=== PATIENT | female | born 1940 | race Caucasian/White ===

== ENCOUNTER 2018-04-13 01:11 | Outpatient (RCR) | payer MEDICARE, OTHER, SELFPAY ==
[2018-04-13] MEDS: Normal Saline Flush 10 ML SYR IVP (09:47)
[2018-04-13] MEDS: diphenhydrAMINE 25 MG CAP PO (10:15)
[2018-04-13] MEDS: Acetaminophen 325 MG TAB 650 MG PO (10:15)
[2018-04-13 10:30] VITALS: BP 139/53; PULSE 52; RESP 18; TEMP 36.2
[2018-04-13 10:45] VITALS: BP 141/56; PULSE 53; RESP 18; TEMP 36
[2018-04-13 11:00] VITALS: BP 136/55; PULSE 52; RESP 18; TEMP 36.5
[2018-04-13 12:58] VITALS: BP 164/63; PULSE 60; RESP 18; TEMP 36.4
== END 2018-05-02 23:59 | disposition home or self-care (01) ==
LOC: INF 01:11
PROVIDERS: PCP Family Medicine; Visit Provider Family Medicine
DX: K50.90 Crohn's disease, unspecified, without complications (principal)
CPT/HCPCS: 96365; 96366; J1745

== ENCOUNTER 2018-05-08 14:12 | Emergency (ER) | payer MEDICARE, OTHER, SELFPAY ==
[2018-05-08 14:19] VITALS: BP 163/63; PULSE 57; RESP 20; TEMP 36.5; O2SAT 99
--- NOTE | 2018-05-08 15:19 | DI.CT_ITS ---
SYMPTOM/DIAGNOSIS: DIZZINESS NONCONTRAST HEAD CT: No priors. The ventricles and sulci are consistent with the patient's age. Areas of decreased attenuation are present in the white matter consistent with small vessel ischemic disease. No acute infarct, hemorrhage, midline shift or mass effect is identified. The ventricles are intact. The basilar cisterns are patent. The visualized paranasal sinuses are clear. The mastoid air cells are well pneumatized. The calvarium is intact. IMPRESSION: No acute intracranial process.
--- NOTE | 2018-05-08 15:35 | W.ED.GENAD ---
Discharge Plan Disposition Patient Disposition: HOME Condition: Fair Discharge Details Chief Complaint: Orthopedic Clinical Impression: Dizziness Primary Care Provider: Dexter Khan ED Provider: Stephanie Cleary Home Meds and New Rx's Prescriptions: Continue ALOE VERA JUICE 1 bottle PO DAILY RF: 0 multivitamin [Daily Vitamin] 1 EACH tablet 1 ea PO DAILY RF: 0 infliximab [Remicade] 100 MG recon soln 400 mg IV Q 10 WEEKS Qty: 1 RF: 7 [id number] [Glucosamine Complex-MSM] 1 EACH capsule 2 ea PO DAILY Qty: 2 RF: 0 calcium carb and citrate-vitD3 1 EACH tablet extended release 1 ea PO BID RF: 0 cyanocobalamin (vitamin B-12) [Vitamin B-12] 1,000 MCG tablet 1,000 mcg PO DAILY RF: 0 celecoxib [Celebrex] 100 mg capsule 100 mg PO BID 30 Days Qty: 60 RF: 3 atorvastatin 40 mg tablet 40 mg PO DAILY Qty: 90 RF: 3 hydrochlorothiazide 12.5 mg tablet 12.5 mg PO DAILY Qty: 90 RF: 3 Discharge Instructions Instructions: Dizziness (ED) Additional Instructions: Laboratory evaluation and imaging are without acute abnormality to suggest why you have had this morning dizziness for the past 3 weeks. Labs are reassuring at this time. Please follow-up with primary care this week. Please encourage hydration. If you develop headache, visual change, increased dizziness or other new/worsening symptoms please seek care urgently once again Referrals: Dexter Khan DO [Primary Care Provider] - ([phone]) Discharge Data Discharge Date/Time-TO BE ENTERED AT DEPARTURE: 05/08/18 18:35 Medical Decision Making Patient is a 6-year-old female presenting today with chief complaint of dizziness. Patient initially reported to nursing staff that she was here for her right middle finger. On exam, the right middle finger is significant for circumferential area of ecchymosis over the middle phalanges. Reports that she sustained injury approximately 1 week ago when peeling beats. However she is denying any discomfort in this area. She came in today for evaluation of this as she noted the digit to be white and had a tingly sensation. This blanching and altered sensation has since resolved, reports that they were only bothersome before a few moments. She reports that resolved quite quickly after massaging the digit. No pain on palpation. No joint swelling. Full range of motion. No ligamentous injury noted on exam. However, after evaluating the patient's finger she is now reporting that she has been having dizziness in the morning for the past 3 weeks. Denies any headache. Denies any acute visual change. No nausea or vomiting. Describes her dizziness as lightheadedness. Denies any vertigo. denies any change in her medications recently. States that typically this dizziness lasts for a few hours and then subsides. Reports that the lightheadedness occurs when she is still lying in bed and is not exacerbated with movement. States his lightheadedness can last with your breakfast and then spontaneously resolved. She is currently asymptomatic. Neuro exam is intact. No headache. No visual changes. Will obtain EKG, head CT and laboratory evaluation. Discussed plan with the patient. Also obtain orthostatics EKG was reviewed by Dr. Ledesma. Patient is in normal sinus rhythm with a rate of 60 normal sinus rhythm. She advises no ischemic changes. Laboratory evaluation without significant abnormality. CT reviewed by radiologist. They advised that patient's brain is significant for nonspecific hypodensities of the periventricular and deep subcortical white matter, most likely secondary to chronic small vessel ischemic change. No intracranial hemorrhage or extra-axial fluid collection. No evidence of mass-effect or midline shift. Mccray-white matter differentiation is normal. Ventricles are significant for prominence of the ventricles and foci, most likely attributed to parenchymal volume loss. Advised the bones are unremarkable no acute fracture. Soft tissue unremarkable. Sinuses are unremarkable as visualized no acute sinusitis. Mastoid air cells are unremarkable as visualized, no mass or diffuse Orthostatic vital signs obtained by nursing staff, no acute abnormality noted Discussed findings with the patient. Advised that at this point am unclear as to why she is having this lightheadedness in the morning. CT without significant abnormality. Laboratory evaluation was reassuring. EKG without acute abnormality. Symptoms are difficult to pinpoint as she is not currently having any symptoms in the occur only in the morning. Not worse with movement. Continues to deny any neurologic symptoms. Advise close follow-up with primary care. I have given her the phone numbers she was unclear as to how to contact them. Encourage hydration. Advised that she keep a journal of her symptoms to try to better understand the source of her lightheadedness. She was given strict return precautions. Regard to the finger, patient I discussed that the pallor and tingling she is experiencing was likely positional as it quickly resolved with movement of the hand and massage. The time I evaluated her, no neurovascular deficit was noted. She denied experiencing any discomfort in the digit. Ligaments intact with full range of motion. At this point, seems to still have residual ecchymosis in the digit associated with cleaning vegetables recently. All of her questions and concerns were addressed and she is in agreement this plan HPI General Mode of arrival: EMS. Date/Time Provider Initiated Documentation: 05/08/18 15:03. Information obtained by: patient and family. History of Present Illness 78 year old F presents to the emergency department with the chief complaint of dizziness, described as mild, Quality is described as other (denies other pain), Patient started experiencing this week(s) (3) and it has been intermittent (reports she has dizzy spells in the morning). No relieving factors improve symptom(s), No exacerbating factors reported . Patient notes no other symptoms.; denies chest pain, cough, fever/chills, headaches, loss of appetite, malaise, nausea/vomiting, rash, shortness of breath, syncope and weakness. Patient did receive the following treatments prior to arrival, none Related Data Home Medications Medication Instructions Recorded Confirmed Aloe Vera Juice 1 bottle PO DAILY 11/30/12 05/08/18 calcium carb and citrate-vitD3 1 ea PO BID 11/30/12 05/08/18 hyvscwkqghe-cje-[id number]-vitC 2 ea PO DAILY #2 11/30/12 05/08/18 [Glucosamine Complex-MSM] infliximab [Remicade] 400 mg IV Q 10 WEEKS #1 vial 11/30/12 05/08/18 multivitamin [Daily Vitamin] 1 ea PO DAILY 11/30/12 05/08/18 cyanocobalamin (vitamin B-12) 1,000 mcg PO DAILY 03/29/13 05/08/18 [Vitamin B-12] atorvastatin 40 mg tablet 40 mg PO DAILY #90 tab-cap 04/22/18 05/08/18 celecoxib 100 mg capsule 100 mg PO BID 30 Days #60 cap 04/22/18 05/08/18 hydrochlorothiazide 12.5 mg tablet 12.5 mg PO DAILY #90 tab-cap 04/22/18 05/08/18 Previous Rx's Medication Instructions Recorded atorvastatin 40 mg tablet 40 mg PO DAILY #90 tab-cap 04/22/18 celecoxib 100 mg capsule 100 mg PO BID 30 Days #60 cap 04/22/18 hydrochlorothiazide 12.5 mg tablet 12.5 mg PO DAILY #90 tab-cap 04/22/18 Allergies Allergy/AdvReac Type Severity Reaction Status Date / Time codeine Allergy rash Unverified 05/08/18 14:22 Sulfa (Sulfonamide Allergy unknown Unverified 05/08/18 14:22 Antibiotics) mesalamine [From Apriso] AdvReac Intermediate Diarrhea Unverified 05/08/18 14:22 General Stated Complaint: Orthopedic ALEX: 4 Review of Systems Constitutional Reports as per HPI, Denies chills, Denies fatigue, Denies fever(s), Denies headache(s), Denies night sweats, Denies poor appetite and Denies weakness Eyes Denies blurry vision, Denies change in vision and Denies diplopia ENT Denies vertigo, Reports dizziness (lightheadedness), Denies ear discharge, Denies otalgia, Denies headache(s) and Denies neck pain Cardiovascular Reports as per HPI, Denies chest pain, Denies chest pain at rest, Denies chest pain with activity, Denies syncope, Denies rapid heart rate, Denies pedal edema, Denies leg edema, Reports lightheadedness, Denies palpitations, Denies dyspnea and Denies dyspnea on exertion Respiratory Denies cough, Denies dyspnea and Denies dyspnea on exertion Gastrointestinal Denies abdominal pain, Denies change in stool character, Denies diarrhea, Denies nausea and Denies vomiting Genitourinary Denies system reviewed and no additional complaints, except as docu (denies any change in urinary habits) Musculoskeletal Denies neck pain and Reports tingling (experienced temporary tingling in the distal aspect of the middle digit right hand, resolved quickly with rubbing the digits and ROM) Integumentary/Breasts Reports other (ecchymosis to the right middle digit x 1 week) Neurologic Denies vertigo, Reports dizziness (lightheadedness), Denies syncope, Denies headache(s), Reports tingling (experienced temporary tingling in the distal aspect of the middle digit right hand, resolved quickly with rubbing the digits and ROM) and Denies weakness Psychiatric Denies abnormal sleep pattern and Denies change in appetite Endocrine Denies fatigue and Denies palpitations PFSH Family History Mother No problems noted. Father No problems noted. Sister No problems noted. Sister No problems noted. Sister No problems noted. Sister No problems noted. Social History Smoking/Tobacco Use Status: Never Surgical History Appendectomy Extraction of cataract (09/04/16) Extraction of cataract (09/16/16) Exam Const General: cooperative, healthy appearing, comfortable, no acute distress, well developed and well groomed Nutritional Appearance: average body habitus and well nourished Orientation: alert, awake and oriented x3 HENMT Head: normal to inspection, normocephalic and atraumatic Ears: hearing grossly normal bilaterally, external ears normal and TM's normal bilaterally General nose exam: external nose normal Face and sinus: normal facial exam Mouth: oral mucosae normal, lip normal, tongue normal and moist mucous membranes abnormal Throat: posterior oropharynx normal, tonsils normal and uvula midline Eyes General: appearance normal, both eyes and all related structures Alignment and Position: alignment normal Periorbital: periorbital findings normal Eyelids: eyelids normal Conjunctivae: conjunctivae normal Pupils: PERRL EOM: EOM intact bilaterally Neck Neck: normal visual inspection, full ROM, no lymphadenopathy and no meningeal signs Resp Effort & Inspection: normal respiratory effort, able to speak in complete sentences and no respiratory distress Auscultation: clear to auscultation bilaterally Cardio Rate: regular rate Rhythm: regular rhythm Heart Sounds: S1 normal and S2 normal GI Inspection: normal to inspection Palpation: soft, no hepatosplenomegaly, no aortic enlargement, not firm, no guarding, no masses, not rigid and nontender Auscultation: normal bowel sounds Skin General skin exam: ecchymosis (Patient has circumferential ecchymosis of the middle phalanx of the middle digit right hand. No pain to palpation. No joint swelling. No soft tissue swelling. Full range of motion. Ligamentously intact.) Lesions: no lesions Rashes: no rashes Wounds: no wounds Nails: normal Neuro General: alert, awake and oriented x3 Cranial Nerves: CN's II-XI intact bilaterally Cognition: normal cognition Speech: speech normal Gait: normal gait Motor: muscle tone normal throughout, strength 5/5 throughout, no pronator drift, no movement abnormalities noted and no fasciculations Sensory Exam: no sensory deficits noted DTR's: Rt Biceps: 2+, Lt Biceps: 2+, Rt Brachioradialis: 2+, Lt Brachioradialis: 2+, Rt Patellar: 2+, Lt Patellar: 2+, Rt Ankle: 2+ and Lt Ankle: 2+ Coordination: [id number] test normal and [id number] test normal Extrem General: abnormal to inspection, full ROM, normal capillary refill, no joint enlargement, no clubbing, cyanosis or edema, no pedal edema, no calf tenderness and normal gait Psych Appearance: grossly normal and well kempt Mental Status: mental status grossly normal Speech and Movement: speech and movement normal Mood: congruent mood Course Vital Signs Temperature 36.5 C 05/08/18 14:19 Pulse 57 L 05/08/18 14:19 Respiratory Rate 20 05/08/18 14:19 Blood Pressure 163/63 H 05/08/18 14:19 Pulse Oximetry 99 05/08/18 14:19 Temperature 36.5 C 05/08/18 14:19 Temperature Source Temporal Artery Scan 05/08/18 14:19 Pulse 57 L 05/08/18 14:19 Respiratory Rate 20 05/08/18 14:19 Respiratory Effort 05/08/18 14:32 Blood Pressure 163/63 H 05/08/18 14:19 Blood Pressure Position Supine 05/08/18 14:19 Pulse Oximetry 99 05/08/18 14:19 Oxygen Delivery Method Room Air 05/08/18 14:19 Oxygen Flow Rate 0 05/08/18 14:19 Pain Level 0 05/08/18 14:19
[2018-05-08 15:43] LABS: Absolute Basophil Count 0.04 k/cumm (0.0-0.2); Absolute Monocyte Count 0.61 k/cumm (0.11-0.7); Absolute Neutrophil Count 2.85 k/cumm (1.2-6.7); Basophils % 0.8; Eosinophils % 3.8; HCT 38.9 % (36.0-46.0); HGB 13.1 g/dL (12.0-15.5); Lymphocytes % 30.2; Mean Corp. HGB Concentration 33.7 g/dL (32.0-36.0); Mean Corpuscular Hemoglobin 32.2 pg (27.0-33.0); Mean Corpuscular Volume 95.6 fL (80-95); Mean Platelet Volume 11.8 fL (8.0-11.0); Monocytes % 11.5; Neutrophils % 53.7; Platelet Count 155 x1000/uL (130-400); RBC 4.07 m/cumm (4.00-5.20); RBC Distribution Width 12.9 % (11.7-14.6)
[2018-05-08 16:01] LABS: ALT 39 U/L (12-78); AST 34 U/L (15-37); Alkaline Phosphatase 70 U/L (46-116); Anion Gap 6.3 mmol/L (3-11); BUN 22 mg/dL (7-18); Bilirubin, Total 0.5 mg/dL (0.2-1.0); CO2 31.7 mmol/L (21.0-32.0); CREATININE 1.11 mg/dL (0.55-1.02); Calcium 9.2 mg/dL (8.5-10.1); Chloride 101 mmol/L (98-107); Estimated GFR 47.29 (mL/min/1.73m2); Glucose 105 mg/dL (70-100); Potassium 3.7 mmol/L (3.5-5.1); Sodium 139 mmol/L (136-145); Total Protein 8.1 g/dL (6.4-8.2)
[2018-05-08 16:03] LABS: Troponin I < 0.02 ng/mL (0.00-0.06)
[2018-05-08 16:06] LABS: Bilirubin Negative (Negative); Blood Negative (Negative); Clarity Clear; Glucose Negative (Negative); Ketones Negative (Negative); Leukocyte Esterase Negative (Negative); Nitrite Negative (Negative); Specific Gravity 1.015 (1.005-1.025); Urobilinogen 0.2 EU/dL (Up TO 0.2)
[2018-05-08 16:09] LABS: Magnesium 2.4 mg/dL (1.8-2.4); TSH 3.27 uIU/mL (0.358-3.74)
[2018-05-08 16:13] VITALS: BP 138/94; BP 139/51; BP 147/51; PULSE 55; PULSE 56; PULSE 57
--- NOTE | 2018-05-08 17:22 | DI.VRAD_ITS ---
EXAM: CT Head Without Intravenous Contrast CLINICAL HISTORY: 78 years old, female; Signs and symptoms; Dizziness; Patient HX: Dizziness last few weeks TECHNIQUE: Axial computed tomography images of the head/brain without intravenous contrast. Coronal and sagittal reformatted images were created and reviewed. COMPARISON: No relevant prior studies available. FINDINGS: Brain: Nonspecific hypodensities of the periventricular and deep subcortical white matter, most likely secondary to chronic small vessel ischemic change. No intracranial hemorrhage or extra-axial fluid collection. No evidence of mass effect or midline shift. Mccray-white matter differentiation is normal. Ventricles: Prominence of the ventricles and sulci, most likely attributed to parenchymal volume loss. Bones/joints: Unremarkable. No acute fracture. Soft tissues: Unremarkable. Sinuses: Unremarkable as visualized. No acute sinusitis. Mastoid air cells: Unremarkable as visualized. No mastoid effusion. IMPRESSION: No acute intracranial pathology. Dictated and Authenticated by: Aly Kaba MD. Ordering:KALANI BOSTON MD
== END 2018-05-08 18:35 | disposition home or self-care (01) ==
PROVIDERS: Emergency Provider Physician Assistant; PCP Family Medicine
DX: R42 Dizziness and giddiness (principal)
CPT/HCPCS: 36415; 80053; 93005; 99285; 70450; 81003; 83735; 84443; 84484; 85025; 93010

== ENCOUNTER 2018-06-28 10:01 | Outpatient (CLI) | payer MEDICARE, OTHER, SELFPAY ==
[2018-06-28 10:22] LABS: Abs Immature Grans 0.01 k/cumm (0.0-0.09); Absolute Basophil Count 0.05 k/cumm (0.0-0.2); Absolute Eosinophil Count 0.24 k/cumm (0.0-0.7); Absolute Lymphocyte Count 1.94 k/cumm (1.2-3.4); Absolute Monocyte Count 0.51 k/cumm (0.11-0.7); Absolute Neutrophil Count 2.26 k/cumm (1.2-6.7); Eosinophils % 4.8; HGB 13.3 g/dL (12.0-15.5); Immature Grans % 0.2; Lymphocytes % 38.7; Mean Corp. HGB Concentration 33.3 g/dL (32.0-36.0); Mean Corpuscular Hemoglobin 32.2 pg (27.0-33.0); Mean Corpuscular Volume 96.9 fL (80-95); Mean Platelet Volume 10.9 fL (8.0-11.0); Monocytes % 10.2; Neutrophils % 45.1; Platelet Count 165 x1000/uL (130-400); RBC 4.13 m/cumm (4.00-5.20); RBC Distribution Width 13.1 % (11.7-14.6); White Blood Cell Count 5.01 k/cumm (4.4-10.8)
[2018-06-28 11:29] LABS: ALT 34 U/L (12-78); AST 28 U/L (15-37); Albumin 3.8 g/dL (3.4-5.0); Alkaline Phosphatase 64 U/L (46-116); Bilirubin, Direct 0.17 mg/dL (0.00-0.20); Bilirubin, Total 0.7 mg/dL (0.2-1.0); Total Protein 7.5 g/dL (6.4-8.2)
[2018-06-28 11:31] LABS: C-Reactive Protein < 0.05 mg/dL (0.0-0.3)
== END 2018-06-28 10:21 ==
PROVIDERS: PCP Family Medicine; Visit Provider Internal Medicine Gastroenterology
DX: K50.119 Crohn's disease of large intestine with unspecified complications (principal)
CPT/HCPCS: 36415; 80076; 85025; 86140

== ENCOUNTER 2018-06-29 01:40 | Outpatient (RCR) | payer MEDICARE, OTHER, SELFPAY ==
[2018-06-29 09:18] VITALS: BP 110/47; PULSE 68; RESP 18; TEMP 36.6; O2SAT 95
[2018-06-29] MEDS: Acetaminophen 325 MG TAB 650 MG PO (09:24)
[2018-06-29] MEDS: diphenhydrAMINE 25 MG CAP PO (09:25)
[2018-06-29 09:45] VITALS: BP 121/50; PULSE 54; RESP 18; TEMP 36.3; O2SAT 95
[2018-06-29 10:00] VITALS: BP 126/50; PULSE 56; RESP 18; TEMP 36.3; O2SAT 95
[2018-06-29 10:15] VITALS: BP 125/50; PULSE 55; RESP 18; TEMP 36.5; O2SAT 98
[2018-06-29 10:45] VITALS: BP 125/51; PULSE 50; RESP 18; TEMP 36.5; O2SAT 98
[2018-06-29 11:15] VITALS: BP 125/45; PULSE 54; RESP 18; TEMP 36.5; O2SAT 98
[2018-06-29] MEDS: Normal Saline Flush 10 ML SYR IVP (14:35)
== END 2018-07-02 23:59 | disposition home or self-care (01) ==
LOC: INF 01:40
PROVIDERS: PCP Family Medicine; Visit Provider Family Medicine
DX: K50.90 Crohn's disease, unspecified, without complications (principal)
CPT/HCPCS: 96365; 96366; J1745

== ENCOUNTER 2018-07-16 12:27 | Emergency (ER) | payer MEDICARE, OTHER, SELFPAY ==
[2018-07-16 12:32] VITALS: BP 182/62; PULSE 69; RESP 18; TEMP 36.6; O2SAT 97
--- NOTE | 2018-07-16 12:36 | W.ED.GENAD ---
Discharge Plan Disposition Patient Disposition: HOME Condition: Good Discharge Details Chief Complaint: Abd Prob Clinical Impression: Constipation Primary Care Provider: Dexter Khan ED Provider: Stephanie Cleary Home Meds and New Rx's Prescriptions: Continued ALOE VERA JUICE 1 bottle PO DAILY RF: 0 multivitamin [Daily Vitamin] 1 EACH tablet 1 ea PO DAILY RF: 0 Glucosamine Complex-MSM 1 EACH capsule 2 ea PO DAILY Qty: 2 RF: 0 calcium carb and citrate-vitD3 1 EACH tablet extended release 1 ea PO BID RF: 0 cyanocobalamin (vitamin B-12) [Vitamin B-12] 1,000 MCG tablet 1,000 mcg PO DAILY RF: 0 celecoxib [Celebrex] 100 mg capsule 100 mg PO BID 30 Days Qty: 60 RF: 3 atorvastatin 40 mg tablet 40 mg PO DAILY Qty: 90 RF: 3 hydrochlorothiazide 12.5 mg tablet 12.5 mg PO DAILY Qty: 90 RF: 3 Discharge Instructions Instructions: Constipation (ED) Additional Instructions: Encourage hydration. You may try MiraLAX if symptoms return. Please follow-up with primary care if symptoms persist. If you develop abdominal pain, vomiting, fevers or chills or other new/worsening symptoms please seek care urgently once again. Referrals: Dexter Khan DO [Primary Care Provider] - Medical Decision Making Patient is an 78-year-old female presenting today with chief complaint of constipation. She reports she had a small bowel movement yesterday but was unsuccessful a bowel movement this morning. She reports she is typically quite regular and has a bowel movement every morning. States she is having some discomfort in her rectum, particularly when sitting. Denies any abdominal pain. No nausea vomiting. No dysuria. Is passing flatus. Reports she try to give herself a suppository this morning but the stool was too hard and was unable to place this into her rectum successfully. Has not tried any oral medications to help with her symptoms. Reports she has had constipation historically but that this is not a routine for her Upon exam of the patient she reported she needed to urinate. Held off on remaining exam until after patient is resting The patient came back to the restroom, she reported that she had a bowel movement. Is feeling much improved and is no longer having rectal discomfort. Denies any blood in the stool. Abdomen is soft, nontender and benign appearing. Patient is feeling much improved and requesting discharge. I advised that she increase her hydration. Advised [id number] medication that may help with symptomatic management in the future if this persists. All of her questions and concerns were addressed she is in agreement this plan. We discussed new/worsening symptoms when to seek care urgently once again. HPI General Mode of arrival: ambulatory. Date/Time Provider Initiated Documentation: 07/16/18 12:33. Limitations to Documentation: no limitations. Information obtained by: patient. History of Present Illness 78 year old F presents to the emergency department with the chief complaint of constipation, described as mild, Quality is described as aching, and is localized to the buttocks (aching in rectum). Patient reports no radiation. Patient started experiencing this hour(s) and it has been constant. No relieving factors improve symptom(s), No exacerbating factors reported . Patient notes denies chest pain, cough, fever/chills, loss of appetite and nausea/vomiting. Patient did receive the following treatments prior to arrival, none Related Data Home Medications Medication Instructions Recorded Confirmed Aloe Vera Juice 1 bottle PO DAILY 11/30/12 07/16/18 Glucosamine Complex-MSM 2 ea PO DAILY #2 11/30/12 07/16/18 calcium carb and citrate-vitD3 1 ea PO BID 11/30/12 07/16/18 multivitamin [Daily Vitamin] 1 ea PO DAILY 11/30/12 07/16/18 cyanocobalamin (vitamin B-12) 1,000 mcg PO DAILY 03/29/13 07/16/18 [Vitamin B-12] atorvastatin 40 mg tablet 40 mg PO DAILY #90 tab-cap 04/22/18 07/16/18 celecoxib 100 mg capsule 100 mg PO BID 30 Days #60 cap 04/22/18 07/16/18 hydrochlorothiazide 12.5 mg tablet 12.5 mg PO DAILY #90 tab-cap 04/22/18 07/16/18 Previous Rx's Medication Instructions Recorded atorvastatin 40 mg tablet 40 mg PO DAILY #90 tab-cap 04/22/18 celecoxib 100 mg capsule 100 mg PO BID 30 Days #60 cap 04/22/18 hydrochlorothiazide 12.5 mg tablet 12.5 mg PO DAILY #90 tab-cap 04/22/18 Allergies Allergy/AdvReac Type Severity Reaction Status Date / Time Sulfa (Sulfonamide Allergy Intermediate hives Verified 07/16/18 12:35 Antibiotics) codeine Allergy Unknown rash Verified 07/16/18 12:35 mesalamine [From Apriso] AdvReac Intermediate Diarrhea Verified 07/16/18 12:35 General Stated Complaint: Abd Prob ALEX: 4 Review of Systems Constitutional Reports as per HPI, Denies chills, Denies fatigue, Denies fever(s) and Denies headache(s) ENT Denies headache(s) Cardiovascular Reports as per HPI, Denies chest pain and Denies dyspnea Respiratory Denies dyspnea Gastrointestinal Reports as per HPI Genitourinary Denies system reviewed and no additional complaints, except as docu (denies change in urinary habits), Denies dysuria and Denies urinary urgency Musculoskeletal Reports as per HPI and Denies back pain Integumentary/Breasts Reports as per HPI and Denies rash Neurologic Denies headache(s) Endocrine Denies fatigue PFSH Family History Mother No problems noted. Father No problems noted. Sister No problems noted. Sister No problems noted. Sister No problems noted. Sister No problems noted. Social History lives independently: Yes Smoking/Tobacco Use Status: Never alcohol intake: never seatbelt use: always working smoke detector in home: Yes carbon monox detector in home: Yes Exam Const General: cooperative, healthy appearing, comfortable, no acute distress and well developed Nutritional Appearance: average body habitus and well nourished Orientation: alert and awake [facility] Head: normal to inspection Mouth: moist mucous membranes Resp Effort & Inspection: normal respiratory effort, able to speak in complete sentences and no respiratory distress Auscultation: clear to auscultation bilaterally, no rales, no rhonchi and no wheezes Cardio Rate: regular rate Rhythm: regular rhythm Heart Sounds: S1 normal and S2 normal GI Inspection: normal to inspection, no edema and non-distended Palpation: soft, no hepatosplenomegaly, not firm, no guarding, not rigid and nontender Auscultation: normal bowel sounds Back/Spine/Pelvis Back: no CVA tenderness Skin General skin exam: no rashes or lesions noted Trauma: no lacerations or abrasions Neuro General: alert and awake Cognition: normal cognition Speech: speech normal Gait: normal gait Psych Appearance: grossly normal and well kempt Mental Status: mental status grossly normal Speech and Movement: speech and movement normal Course Vital Signs Temperature 36.6 C 07/16/18 12:32 Pulse 69 07/16/18 12:32 Respiratory Rate 18 07/16/18 12:32 Blood Pressure 182/62 H 07/16/18 12:32 Pulse Oximetry 97 07/16/18 12:32 Temperature 36.6 C 07/16/18 12:32 Temperature Source Temporal Artery Scan 07/16/18 12:32 Pulse 69 07/16/18 12:32 Respiratory Rate 18 07/16/18 12:32 Respiratory Effort 07/16/18 12:34 Blood Pressure 182/62 H 07/16/18 12:32 Pulse Oximetry 97 07/16/18 12:32 Oxygen Delivery Method Room Air 07/16/18 12:32 Oxygen Flow Rate 0 07/16/18 12:32 Pain Level 0 07/16/18 12:32
--- NOTE | 2018-07-16 13:05 | ED.GENADUL_ITS ---
Discharge Plan Disposition Patient Disposition: HOME Condition: Good Discharge Details Chief Complaint: Abd Prob Clinical Impression: Constipation Primary Care Provider: Dexter Khan ED Provider: Stephanie Cleary Home Meds and New Rx's Prescriptions: Continued ALOE VERA JUICE 1 bottle PO DAILY RF: 0 multivitamin [Daily Vitamin] 1 EACH tablet 1 ea PO DAILY RF: 0 Glucosamine Complex-MSM 1 EACH capsule 2 ea PO DAILY Qty: 2 RF: 0 calcium carb and citrate-vitD3 1 EACH tablet extended release 1 ea PO BID RF: 0 cyanocobalamin (vitamin B-12) [Vitamin B-12] 1,000 MCG tablet 1,000 mcg PO DAILY RF: 0 celecoxib [Celebrex] 100 mg capsule 100 mg PO BID 30 Days Qty: 60 RF: 3 atorvastatin 40 mg tablet 40 mg PO DAILY Qty: 90 RF: 3 hydrochlorothiazide 12.5 mg tablet 12.5 mg PO DAILY Qty: 90 RF: 3 Discharge Instructions Instructions: Constipation (ED) Additional Instructions: Encourage hydration. You may try MiraLAX if symptoms return. Please follow-up with primary care if symptoms persist. If you develop abdominal pain, vomiting, fevers or chills or other new/worsening symptoms please seek care urgently once again. Referrals: Dexter Khan DO [Primary Care Provider] - Medical Decision Making Patient is an 78-year-old female presenting today with chief complaint of constipation. She reports she had a small bowel movement yesterday but was unsuccessful a bowel movement this morning. She reports she is typically quite regular and has a bowel movement every morning. States she is having some discomfort in her rectum, particularly when sitting. Denies any abdominal pain. No nausea vomiting. No dysuria. Is passing flatus. Reports she try to give herself a suppository this morning but the stool was too hard and was unable to place this into her rectum successfully. Has not tried any oral medications to help with her symptoms. Reports she has had constipation historically but that this is not a routine for her Upon exam of the patient she reported she needed to urinate. Held off on remaining exam until after patient is resting The patient came back to the restroom, she reported that she had a bowel movement. Is feeling much improved and is no longer having rectal discomfort. Denies any blood in the stool. Abdomen is soft, nontender and benign appearing. Patient is feeling much improved and requesting discharge. I advised that she increase her hydration. Advised [id number] medication that may help with symptomatic management in the future if this persists. All of her questions and concerns were addressed she is in agreement this plan. We discussed new/worsening symptoms when to seek care urgently once again. HPI General Mode of arrival: ambulatory . Date/Time Provider Initiated Documentation: 07/16/18 12:33 . Limitations to Documentation: no limitations . Information obtained by: patient . History of Present Illness 78 year old F presents to the emergency department with the chief complaint of constipation, described as mild, Quality is described as aching, and is localized to the buttocks (aching in rectum). Patient reports no radiation. Patient started experiencing this hour(s) and it has been constant. No relieving factors improve symptom(s), No exacerbating factors reported . Patient notes denies chest pain, cough, fever/chills, loss of appetite and nausea/vomiting. Patient did receive the following treatments prior to arrival, none Related Data Home Medications Medication Instructions Recorded Confirmed Aloe Vera Juice 1 bottle PO DAILY 11/30/12 07/16/18 Glucosamine Complex-MSM 2 ea PO DAILY #2 11/30/12 07/16/18 calcium carb and citrate-vitD3 1 ea PO BID 11/30/12 07/16/18 multivitamin [Daily Vitamin] 1 ea PO DAILY 11/30/12 07/16/18 cyanocobalamin (vitamin B-12) 1,000 mcg PO DAILY 03/29/13 07/16/18 [Vitamin B-12] atorvastatin 40 mg tablet 40 mg PO DAILY #90 tab-cap 04/22/18 07/16/18 celecoxib 100 mg capsule 100 mg PO BID 30 Days #60 cap 04/22/18 07/16/18 hydrochlorothiazide 12.5 mg tablet 12.5 mg PO DAILY #90 tab-cap 04/22/18 07/16/18 Previous Rx's Medication Instructions Recorded atorvastatin 40 mg tablet 40 mg PO DAILY #90 tab-cap 04/22/18 celecoxib 100 mg capsule 100 mg PO BID 30 Days #60 cap 04/22/18 hydrochlorothiazide 12.5 mg tablet 12.5 mg PO DAILY #90 tab-cap 04/22/18 Allergies Allergy/AdvReac Type Severity Reaction Status Date / Time Sulfa (Sulfonamide Allergy Intermediate hives Verified 07/16/18 12:35 Antibiotics) codeine Allergy Unknown rash Verified 07/16/18 12:35 mesalamine [From Apriso] AdvReac Intermediate Diarrhea Verified 07/16/18 12:35 General Stated Complaint: Abd Prob ALEX: 4 Review of Systems Constitutional Reports as per HPI, Denies chills, Denies fatigue, Denies fever(s) and Denies headache(s) ENT Denies headache(s) Cardiovascular Reports as per HPI, Denies chest pain and Denies dyspnea Respiratory Denies dyspnea Gastrointestinal Reports as per HPI Genitourinary Denies system reviewed and no additional complaints, except as docu (denies change in urinary habits), Denies dysuria and Denies urinary urgency Musculoskeletal Reports as per HPI and Denies back pain Integumentary/Breasts Reports as per HPI and Denies rash Neurologic Denies headache(s) Endocrine Denies fatigue PFSH Family History Mother No problems noted. Father No problems noted. Sister No problems noted. Sister No problems noted. Sister No problems noted. Sister No problems noted. Social History lives independently: Yes Smoking/Tobacco Use Status: Never alcohol intake: never seatbelt use: always working smoke detector in home: Yes carbon monox detector in home: Yes Exam Const General: cooperative, healthy appearing, comfortable, no acute distress and well developed Nutritional Appearance: average body habitus and well nourished Orientation: alert and awake [facility] Head: normal to inspection Mouth: moist mucous membranes Resp Effort & Inspection: normal respiratory effort, able to speak in complete sentences and no respiratory distress Auscultation: clear to auscultation bilaterally, no rales, no rhonchi and no wheezes Cardio Rate: regular rate Rhythm: regular rhythm Heart Sounds: S1 normal and S2 normal GI Inspection: normal to inspection, no edema and non-distended Palpation: soft, no hepatosplenomegaly, not firm, no guarding, not rigid and nontender Auscultation: normal bowel sounds Back/Spine/Pelvis Back: no CVA tenderness Skin General skin exam: no rashes or lesions noted Trauma: no lacerations or abrasions Neuro General: alert and awake Cognition: normal cognition Speech: speech normal Gait: normal gait Psych Appearance: grossly normal and well kempt Mental Status: mental status grossly normal Speech and Movement: speech and movement normal Course Vital Signs Temperature 36.6 C 07/16/18 12:32 Pulse 69 07/16/18 12:32 Respiratory Rate 18 07/16/18 12:32 Blood Pressure 182/62 H 07/16/18 12:32 Pulse Oximetry 97 07/16/18 12:32 Temperature 36.6 C 07/16/18 12:32 Temperature Source Temporal Artery Scan 07/16/18 12:32 Pulse 69 07/16/18 12:32 Respiratory Rate 18 07/16/18 12:32 Respiratory Effort 07/16/18 12:34 Blood Pressure 182/62 H 07/16/18 12:32 Pulse Oximetry 97 07/16/18 12:32 Oxygen Delivery Method Room Air 07/16/18 12:32 Oxygen Flow Rate 0 07/16/18 12:32 Pain Level 0 07/16/18 12:32
== END 2018-07-16 13:29 | disposition home or self-care (01) ==
PROVIDERS: Emergency Provider Physician Assistant; PCP Family Medicine
DX: K59.00 Constipation, unspecified (principal)
CPT/HCPCS: 99282

== ENCOUNTER 2018-09-07 01:49 | Outpatient (RCR) | payer MEDICARE, OTHER, SELFPAY ==
[2018-09-07 09:58] VITALS: BP 145/52; PULSE 61; RESP 18; TEMP 36.6; O2SAT 96
[2018-09-07] MEDS: diphenhydrAMINE 25 MG CAP PO (10:13)
[2018-09-07] MEDS: Acetaminophen 325 MG TAB 650 MG PO (10:14)
[2018-09-07] MEDS: Normal Saline Flush 10 ML SYR IVP (10:16)
[2018-09-07 10:46] VITALS: BP 124/49; PULSE 58; RESP 18; TEMP 36.4; O2SAT 95
[2018-09-07 11:03] VITALS: BP 135/46; PULSE 54; TEMP 36.4; O2SAT 95
[2018-09-07 11:24] VITALS: BP 123/42; PULSE 59; RESP 20; TEMP 36.3; O2SAT 98
== END 2018-09-30 23:59 | disposition home or self-care (01) ==
LOC: INF 01:49
PROVIDERS: PCP Nurse Practitioner Adult Health; Visit Provider Family Medicine
DX: K50.90 Crohn's disease, unspecified, without complications (principal)
CPT/HCPCS: 96365; 96366; J1745

== ENCOUNTER → 2018-11-01 13:46 | Outpatient (BNVA) | payer MEDICARE, OTHER, SELFPAY | PROVIDERS: PCP Nurse Practitioner Adult Health; Visit Provider Psychiatry & Neurology Neurology | DX: R41.3 Other amnesia (principal); I10 Essential (primary) hypertension | CPT/HCPCS: 99205; 99215 ==

== ENCOUNTER 2018-11-08 00:56 | Outpatient (CLI) | payer MEDICARE, OTHER, SELFPAY ==
--- NOTE | 2018-11-08 11:15 | DI.MRI_ITS ---
SYMPTOMS/DIAGNOSIS: MEMORY LOSS, R41.3, OTHER AMNESIA MRI OF THE BRAIN: Routine noncontrast examination was performed. There is cerebral atrophy consistent with the patient's age. There are areas of T 2 hyperintensity in the white matter on the FLAIR and T 2 weighted images consistent with small vessel ischemic disease. The diffusion weighted images show no evidence of an acute infarct. The gradient images show no evidence of intracranial hemorrhage. There is no acute midline shift or mass effect. There is a flow void seen in the [place] of [place]. The pituitary gland appears grossly unremarkable. The visualized paranasal sinuses are clear. IMPRESSION: Cerebral atrophy and small vessel ischemic disease consistent with the patient's age.
== END 2018-11-08 01:16 ==
PROVIDERS: PCP Nurse Practitioner Adult Health; Visit Provider Psychiatry & Neurology Neurology
DX: R41.3 Other amnesia (principal); G31.1 Senile degeneration of brain, not elsewhere classified; I67.82 Cerebral ischemia
CPT/HCPCS: 70551

== ENCOUNTER 2018-11-10 09:26 | Outpatient (CLI) | payer MEDICARE, OTHER, SELFPAY ==
[2018-11-10 10:16] LABS: Absolute Basophil Count 0.05 k/cumm (0.0-0.2); Absolute Lymphocyte Count 1.71 k/cumm (1.2-3.4); Absolute Monocyte Count 0.44 k/cumm (0.11-0.7); Absolute Neutrophil Count 1.42 k/cumm (1.2-6.7); Basophils % 1.3; Eosinophils % 5.2; HCT 37.9 % (36.0-46.0); HGB 12.8 g/dL (12.0-15.5); Lymphocytes % 44.8; Mean Corp. HGB Concentration 33.8 g/dL (32.0-36.0); Mean Corpuscular Hemoglobin 32.2 pg (27.0-33.0); Mean Corpuscular Volume 95.2 fL (80-95); Mean Platelet Volume 11.6 fL (8.0-11.0); Monocytes % 11.5; Neutrophils % 37.2; Platelet Count 137 x1000/uL (130-400); RBC 3.98 m/cumm (4.00-5.20); RBC Distribution Width 12.6 % (11.7-14.6); White Blood Cell Count 3.82 k/cumm (4.4-10.8)
[2018-11-10 10:41] LABS: ALT 36 U/L (12-78); AST 30 U/L (15-37); Albumin 3.9 g/dL (3.4-5.0); Alkaline Phosphatase 69 U/L (46-116); Bilirubin, Direct 0.14 mg/dL (0.00-0.20); Bilirubin, Total 0.6 mg/dL (0.2-1.0); Total Protein 7.1 g/dL (6.4-8.2)
[2018-11-10 10:42] LABS: Anion Gap 6.6 mmol/L (3-11); BUN 22 mg/dL (7-18); CO2 32.4 mmol/L (21.0-32.0); CREATININE 1.14 mg/dL (0.55-1.02); Calcium 9.1 mg/dL (8.5-10.1); Chloride 101 mmol/L (98-107); Cholesterol 163 mg/dL (50-200); Estimated GFR 45.86 (mL/min/1.73m2); Glucose 88 mg/dL (70-100); HDL Cholesterol 63 mg/dL (40-60); LDL CHOLESTEROL 84 mg/dL (<100); Potassium 3.8 mmol/L (3.5-5.1); Sodium 140 mmol/L (136-145); Triglyceride 98 mg/dL (30-150)
[2018-11-10 10:57] LABS: C-Reactive Protein 0.08 mg/dL (0.0-0.3)
[2018-11-10 11:05] LABS: Vitamin B12 1840 pg/mL (193-986)
[2018-11-10 11:06] LABS: RBC Morphology Normal
== END 2018-11-10 09:46 ==
PROVIDERS: Psychiatry & Neurology Neurology; PCP Nurse Practitioner Adult Health; Referring Provider Internal Medicine Gastroenterology; Visit Provider Nurse Practitioner Adult Health
DX: K50.119 Crohn's disease of large intestine with unspecified complications (principal); I10 Essential (primary) hypertension; E78.00 Pure hypercholesterolemia, unspecified; R41.3 Other amnesia
CPT/HCPCS: 36415; 80048; 80061; 80076; 83721; 82607; 85025; 86140

== ENCOUNTER 2018-11-16 01:22 | Outpatient (RCR) | payer MEDICARE, OTHER, SELFPAY ==
[2018-11-16] MEDS: Normal Saline Flush 10 ML SYR IVP (09:30)
[2018-11-16] MEDS: Acetaminophen 325 MG TAB 650 MG PO (09:48)
[2018-11-16] MEDS: diphenhydrAMINE 25 MG CAP PO (09:48)
[2018-11-16 10:41] VITALS: BP 121/50; PULSE 51; RESP 18; TEMP 36.6; O2SAT 95
[2018-11-16 10:56] VITALS: BP 114/48; PULSE 50; RESP 16; TEMP 36.5; O2SAT 94
[2018-11-16 11:09] VITALS: BP 110/49; PULSE 50; RESP 16; TEMP 36.7; O2SAT 95
[2018-11-16 11:45] VITALS: BP 106/48; PULSE 50; RESP 18; TEMP 36.6; O2SAT 96
== END 2018-11-30 23:59 | disposition home or self-care (01) ==
LOC: INF 01:22
PROVIDERS: PCP Nurse Practitioner Adult Health; Visit Provider Family Medicine
DX: K50.90 Crohn's disease, unspecified, without complications (principal)
CPT/HCPCS: 96365; 96366; J1745

== ENCOUNTER 2018-11-24 09:55 | Outpatient (REF) | payer MEDICARE, OTHER, SELFPAY ==
[2018-11-24 15:14] LABS: TSH 3.36 uIU/mL (0.358-3.74)
== END 2018-11-24 10:15 ==
LOC: LBN 09:55
PROVIDERS: PCP Nurse Practitioner Adult Health; Visit Provider Internal Medicine
DX: R63.4 Abnormal weight loss (principal)
CPT/HCPCS: 84443

== ENCOUNTER → 2018-12-16 10:34 | Outpatient (BNVA) | payer MEDICARE, OTHER, SELFPAY | PROVIDERS: PCP Nurse Practitioner Adult Health; Visit Provider Psychiatry & Neurology Neurology | DX: R41.3 Other amnesia (principal); I10 Essential (primary) hypertension | CPT/HCPCS: 99214 ==

== ENCOUNTER 2019-01-25 01:33 | Outpatient (RCR) | payer MEDICARE, OTHER, SELFPAY ==
[2019-01-25] MEDS: Acetaminophen 325 MG TAB 650 MG PO (08:41)
[2019-01-25] MEDS: diphenhydrAMINE 25 MG CAP PO (08:41)
[2019-01-25] MEDS: Normal Saline Flush 10 ML SYR IVP (08:42)
[2019-01-25 08:56] LABS: Absolute Basophil Count 0.05 k/cumm (0.0-0.2); Absolute Eosinophil Count 0.21 k/cumm (0.0-0.7); Absolute Lymphocyte Count 1.77 k/cumm (1.2-3.4); Absolute Monocyte Count 0.34 k/cumm (0.11-0.7); Absolute Neutrophil Count 1.97 k/cumm (1.2-6.7); Basophils % 1.2; Eosinophils % 4.8; HGB 12.8 g/dL (12.0-15.5); Lymphocytes % 40.8; Mean Corp. HGB Concentration 33.7 g/dL (32.0-36.0); Mean Corpuscular Hemoglobin 31.9 pg (27.0-33.0); Mean Corpuscular Volume 94.8 fL (80-95); Mean Platelet Volume 11.8 fL (8.0-11.0); Monocytes % 7.8; Neutrophils % 45.4; Platelet Count 147 x1000/uL (130-400); RBC 4.01 m/cumm (4.00-5.20); RBC Distribution Width 12.6 % (11.7-14.6); White Blood Cell Count 4.34 k/cumm (4.4-10.8)
[2019-01-25 08:59] VITALS: BP 127/81; PULSE 51; RESP 18; TEMP 36; O2SAT 99
[2019-01-25 09:12] LABS: ALT 38 U/L (12-78); AST 46 U/L (15-37); Albumin 3.3 g/dL (3.4-5.0); Alkaline Phosphatase 64 U/L (46-116); Bilirubin, Direct 0.08 mg/dL (0.00-0.20); Bilirubin, Total 0.5 mg/dL (0.2-1.0); C-Reactive Protein 0.05 mg/dL (0.0-0.3); Total Protein 7.1 g/dL (6.4-8.2)
[2019-01-25 09:45] VITALS: BP 129/75; PULSE 48; RESP 18; TEMP 36.4; O2SAT 98
[2019-01-25 10:15] VITALS: BP 131/79; PULSE 48; RESP 18; TEMP 36.5; O2SAT 99
[2019-01-25 10:55] VITALS: BP 127/72; PULSE 50; RESP 18; TEMP 36.4; O2SAT 99
[2019-01-27 22:04] LABS: Infliximab 12 mcg/mL (<=5.0)
== END 2019-01-30 23:59 | disposition home or self-care (01) ==
LOC: INF 01:33
PROVIDERS: PCP Nurse Practitioner Adult Health; Visit Provider Family Medicine
DX: K50.119 Crohn's disease of large intestine with unspecified complications (principal); Z51.89 Encounter for other specified aftercare; Z79.899 Other long term (current) drug therapy
CPT/HCPCS: 36415; 80076; 82397; 96365; 96366; 85025; 86140; J1745

== ENCOUNTER → 2019-02-17 12:38 | Outpatient (BNVA) | payer MEDICARE, OTHER, SELFPAY | PROVIDERS: PCP Nurse Practitioner Adult Health; Visit Provider Psychiatry & Neurology Neurology | DX: R41.3 Other amnesia (principal); I10 Essential (primary) hypertension | CPT/HCPCS: 99213 ==

== ENCOUNTER 2019-04-05 00:48 | Outpatient (RCR) | payer MEDICARE, OTHER, SELFPAY ==
[2019-04-05] MEDS: Acetaminophen 325 MG TAB 650 MG PO (11:53)
[2019-04-05] MEDS: diphenhydrAMINE 25 MG CAP PO (11:53)
[2019-04-05] MEDS: Normal Saline Flush 10 ML SYR IVP (11:53)
[2019-04-05 12:13] VITALS: BP 118/58; PULSE 62; RESP 18; TEMP 36.5; O2SAT 97
[2019-04-05 12:33] VITALS: BP 124/66; PULSE 50; TEMP 36.6; O2SAT 98
[2019-04-05 12:52] VITALS: BP 105/62; PULSE 52; RESP 18; TEMP 36.6; O2SAT 98
[2019-04-05 13:10] VITALS: BP 101/57; PULSE 50; RESP 18; TEMP 36.5; O2SAT 99
[2019-04-05 13:43] VITALS: BP 105/55; PULSE 52; RESP 18; TEMP 36.5; O2SAT 98
[2019-04-05 14:26] VITALS: BP 105/55; PULSE 52; RESP 18; TEMP 36.3; O2SAT 98
== END 2019-05-02 23:59 | disposition home or self-care (01) ==
LOC: INF 00:48
PROVIDERS: PCP Nurse Practitioner Adult Health; Visit Provider Family Medicine
DX: K50.119 Crohn's disease of large intestine with unspecified complications (principal)
CPT/HCPCS: 96365; 96366; J1745

== ENCOUNTER 2019-06-13 11:26 | Outpatient (CLI) | payer MEDICARE, OTHER, SELFPAY ==
[2019-06-13 12:45] LABS: HCT 37.3 % (36.0-46.0); HGB 12.4 g/dL (12.0-15.5); Mean Corp. HGB Concentration 33.2 g/dL (32.0-36.0); Mean Corpuscular Hemoglobin 31.6 pg (27.0-33.0); Mean Corpuscular Volume 94.9 fL (80-95); Mean Platelet Volume 11.5 fL (8.0-11.0); Platelet Count 181 x1000/uL (130-400); RBC 3.93 m/cumm (4.00-5.20); RBC Distribution Width 12.5 % (11.7-14.6); White Blood Cell Count 4.31 k/cumm (4.4-10.8)
[2019-06-13 13:19] LABS: ALT 39 U/L (14-59); AST 32 U/L (15-37); Albumin 3.9 g/dL (3.4-5.0); Alkaline Phosphatase 74 U/L (46-116); Bilirubin, Direct 0.15 mg/dL (0.00-0.20); Bilirubin, Total 0.5 mg/dL (0.2-1.0); Total Protein 7.5 g/dL (6.4-8.2)
[2019-06-13 13:59] LABS: Vitamin B12 > 2000 pg/mL (193-986)
[2019-06-13 14:20] LABS: ESR 34 mm/hr (0-30)
[2019-06-14 09:36] LABS: C-Reactive Protein 0.14 mg/dL (0.0-0.3)
[2019-06-17 11:58] LABS: SS-A Antibody 4.8 Units (<20.0)
[2019-06-17 12:01] LABS: SS-B (La) Ab, IgG 1.9 Units (<20.0)
== END 2019-06-13 11:46 ==
PROVIDERS: PCP Nurse Practitioner Adult Health; Visit Provider Nurse Practitioner Adult Health
DX: K50.90 Crohn's disease, unspecified, without complications (principal); R71.8 Other abnormality of red blood cells; R43.2 Parageusia
CPT/HCPCS: 36415; 80076; 85027; 85652; 82607; 83655; 86140; 86235

== ENCOUNTER 2019-06-14 00:52 | Outpatient (RCR) | payer MEDICARE, OTHER, SELFPAY ==
[2019-06-14] VITALS (8 sets, daily range): BP systolic 108–148; BP diastolic 51–76; PULSE 50–74; RESP 18–19; TEMP 36.5–36.6; O2SAT 96–98
[2019-06-14] MEDS: diphenhydrAMINE 25 MG CAP PO (09:27)
[2019-06-14] MEDS: Normal Saline Flush 10 ML SYR IVP (09:27)
[2019-06-14] MEDS: Acetaminophen 325 MG TAB 650 MG PO (09:27)
== END 2019-07-02 23:59 | disposition home or self-care (01) ==
LOC: INF 00:52
PROVIDERS: PCP Nurse Practitioner Adult Health; Visit Provider Family Medicine
DX: K50.119 Crohn's disease of large intestine with unspecified complications (principal)
CPT/HCPCS: 96365; 96366; J1745

== ENCOUNTER 2019-08-23 01:17 | Outpatient (RCR) | payer MEDICARE, OTHER, SELFPAY ==
[2019-08-23] VITALS (7 sets, daily range): BP systolic 105–149; BP diastolic 62–73; PULSE 45–57; RESP 17–19; TEMP 35.6–36; O2SAT 97–100
[2019-08-23] MEDS: Acetaminophen 325 MG TAB 650 MG PO (09:18)
[2019-08-23] MEDS: Normal Saline Flush 10 ML SYR IVP (09:19)
[2019-08-23] MEDS: diphenhydrAMINE 25 MG CAP PO (09:19)
== END 2019-09-02 23:59 | disposition home or self-care (01) ==
LOC: INF 01:17
PROVIDERS: PCP Nurse Practitioner Adult Health; Visit Provider Family Medicine
DX: K50.119 Crohn's disease of large intestine with unspecified complications (principal)
CPT/HCPCS: 96365; 96366; 96413; 96415; J1745

== ENCOUNTER 2019-11-01 03:40 | Outpatient (RCR) | payer MEDICARE, OTHER, SELFPAY ==
[2019-11-01] MEDS: diphenhydrAMINE 25 MG CAP PO (09:40)
[2019-11-01] MEDS: Acetaminophen 325 MG TAB 650 MG PO (09:41)
[2019-11-01 09:48] LABS: Abs Immature Grans 0.01 k/cumm (0.0-0.09); Absolute Basophil Count 0.04 k/cumm (0.0-0.2); Absolute Eosinophil Count 0.24 k/cumm (0.0-0.7); Absolute Lymphocyte Count 1.56 k/cumm (1.2-3.4); Absolute Monocyte Count 0.46 k/cumm (0.11-0.7); Absolute Neutrophil Count 1.96 k/cumm (1.2-6.7); Basophils % 0.9; Eosinophils % 5.6; HCT 36.9 % (36.0-46.0); HGB 12.1 g/dL (12.0-15.5); Immature Grans % 0.2 %; Lymphocytes % 36.5; Mean Corp. HGB Concentration 32.8 g/dL (32.0-36.0); Mean Corpuscular Hemoglobin 31.5 pg (27.0-33.0); Mean Corpuscular Volume 96.1 fL (80-95); Mean Platelet Volume 11.3 fL (8.0-11.0); Monocytes % 10.8; Platelet Count 136 x1000/uL (130-400); RBC 3.84 m/cumm (4.00-5.20); White Blood Cell Count 4.27 k/cumm (4.4-10.8)
[2019-11-01 10:04] LABS: ALT 47 U/L (14-59); AST 34 U/L (15-37); Albumin 3.7 g/dL (3.4-5.0); Alkaline Phosphatase 65 U/L (46-116); Bilirubin, Direct 0.14 mg/dL (0.00-0.20); Bilirubin, Total 0.6 mg/dL (0.2-1.0); Total Protein 7.5 g/dL (6.4-8.2)
[2019-11-01 10:12] VITALS: BP 118/53; PULSE 48; RESP 19; TEMP 36.6; O2SAT 96
[2019-11-01 10:27] VITALS: BP 115/52; PULSE 57; RESP 18; TEMP 36.6; O2SAT 97
[2019-11-01 10:42] VITALS: BP 130/69; PULSE 47; RESP 18; TEMP 36.5; O2SAT 96
[2019-11-01 10:57] VITALS: BP 121/66; PULSE 48; RESP 18; TEMP 36.5; O2SAT 96
[2019-11-01 11:03] LABS: C-Reactive Protein < 0.05 mg/dL (0.0-0.3)
[2019-11-01 11:37] VITALS: BP 120/68; PULSE 48; RESP 18; TEMP 36.6; O2SAT 99
[2019-11-01] MEDS: Normal Saline Flush 10 ML SYR IVP (12:12)
== END 2019-11-01 23:59 | disposition home or self-care (01) ==
LOC: INF 03:40
PROVIDERS: Internal Medicine; PCP Nurse Practitioner Adult Health; Visit Provider Family Medicine
DX: K50.90 Crohn's disease, unspecified, without complications (principal); Z45.2 Encounter for adjustment and management of vascular access device
CPT/HCPCS: 36415; 36592; 80076; 96365; 96366; 96413; 96415; 85025; 86140; J1745

== ENCOUNTER 2020-01-10 03:01 | Outpatient (RCR) | payer OTHER, SELFPAY ==
[2020-01-10] VITALS (7 sets, daily range): BP systolic 110–137; BP diastolic 48–82; PULSE 46–58; RESP 18–19; TEMP 36–36.5; O2SAT 97–98
[2020-01-10] MEDS: Normal Saline Flush 10 ML SYR IVP (09:10)
[2020-01-10] MEDS: Acetaminophen 325 MG TAB 650 MG PO (09:10)
[2020-01-10] MEDS: diphenhydrAMINE 25 MG CAP PO (09:10)
== END 2020-01-31 23:59 | disposition home or self-care (01) ==
LOC: INF 03:01
PROVIDERS: PCP Family Medicine; Visit Provider Family Medicine
DX: K50.90 Crohn's disease, unspecified, without complications (principal)
CPT/HCPCS: 96365; 96366; 96413; 96415; J1745

== ENCOUNTER 2020-03-20 01:26 | Outpatient (RCR) | payer OTHER, SELFPAY ==
[2020-03-20] VITALS (7 sets, daily range): BP systolic 104–125; BP diastolic 58–64; PULSE 48–55; RESP 17–19; TEMP 36.4–36.6; O2SAT 96–100
[2020-03-20] MEDS: Acetaminophen 325 MG TAB 650 MG PO (09:03)
[2020-03-20] MEDS: diphenhydrAMINE 25 MG CAP PO (09:03)
[2020-03-20] MEDS: Normal Saline Flush 10 ML SYR IVP (09:05)
[2020-03-20 09:28] LABS: Abs Immature Grans 0.01 10^3/uL (0.0-0.06); Absolute Basophil Count 0.04 10^3/uL (0.0-0.2); Absolute Lymphocyte Count 1.93 10^3/uL (1.2-3.4); Absolute Monocyte Count 0.49 10^3/uL (0.1-0.8); Absolute Neutrophil Count 1.99 10^3/uL (1.2-6.7); Basophils % 0.9; Eosinophils % 4.3; HCT 35.5 % (36.0-46.0); HGB 11.9 g/dL (11.2-15.7); Immature Grans % 0.2; Lymphocytes % 41.4; MCH 31.5 pg (27.0-33.0); MCHC 33.5 % (32.0-36.0); MCV 93.9 fL (80-95); MPV 11.7 fL (8.0-11.0); Monocytes % 10.5; Neutrophils % 42.7; Nucleated RBC 0 %; Platelet Count 150 10^3/uL (130-400); RBC 3.78 10^6/uL (3.93-5.22); RDW 12.2 % (11.7-14.6); RDW-SD 42.5 fL; WBC 4.66 10^3/uL (4.4-10.8)
[2020-03-20 09:45] LABS: ALT 42 U/L (14-59); AST 35 U/L (15-37); Albumin 3.6 g/dL (3.4-5.0); Alkaline Phosphatase 69 U/L (46-116); Bilirubin, Direct 0.15 mg/dL (0.00-0.20); Bilirubin, Total 0.6 mg/dL (0.2-1.0); C-Reactive Protein < 0.05 mg/dL (0.0-0.3); Total Protein 7.4 g/dL (6.4-8.2)
[2020-03-23 00:32] LABS: Infliximab 13 mcg/mL (<=5.0)
== END 2020-04-02 23:59 | disposition home or self-care (01) ==
LOC: INF 01:26
PROVIDERS: PCP Family Medicine; Visit Provider Family Medicine
DX: K50.90 Crohn's disease, unspecified, without complications (principal)
CPT/HCPCS: 36415; 80076; 82397; 96365; 96366; 85025; 86140; J1745

== ENCOUNTER 2020-04-28 11:02 | Emergency (ER) | payer OTHER, SELFPAY ==
[2020-04-28] VITALS (58 sets, daily range): BP systolic 94–150; BP diastolic 27–78; PULSE 45–63; RESP 10–22; TEMP 36; O2SAT 92–100
--- NOTE | 2020-04-28 11:00 | RT.EKG_ITS ---
APPROVED REPORT Exam: Resting ECG Patient Location: E HR:55 bpm ECG Measurements Heart Rate 55 AXIS TN 187 P 56 QRSd 103 QRS 48 QT 461 T 65 QTc 443 Conclusion Sinus bradycardia...rate< 60
--- NOTE | 2020-04-28 11:15 | DI.CT_ITS ---
EXAM: CT HEAD WO CLINICAL HISTORY: altered, dizzy, nausea/vomiting. TECHNIQUE: Imaging Protocol: Axial computed tomography images with coronal and sagittal reformatted images were created and reviewed COMPARISON: CT CT HEAD WO from 05/08/2018 FINDINGS: Ventricles and Extra axial spaces: Normal in size and morphology for the patient's age. Hemorrhage: None. Cerebral parenchyma: There are areas of decreased attenuation in the white matter consistent with sma ll vessel ischemic disease. No acute territorial infarct. Midline shift: None. Brainstem/Cerebellum: Normal. Calvarium: Normal. Visualized Paranasal sinuses/Mastoids: Clear. Soft Tissues: Unremarkable. IMPRESSION: No acute intracranial process. RADIATION DOSE DELIVERED: 655.98mGy.cm Total DLP DATA REPOSITORY: All CT scans at this facility are submitted to the National Radiology Data Registry (NRDR) Dose Index Registry (DIR) with the [employer] (A[employer]). RADIATION OPTIMIZATION: All CT scans at this facility use at least one of these dose optimization te chniques: automated exposure control; mA and/or kV adjustment per patient size (includes targeted exa ms where dose is matched to clinical indication); or iterative reconstruction.
[2020-04-28 11:37] LABS: Abs Immature Grans 0.06 10^3/uL (0.0-0.06); Absolute Basophil Count 0.03 10^3/uL (0.0-0.2); Absolute Eosinophil Count 0.06 10^3/uL (0.0-0.7); Absolute Lymphocyte Count 1.33 10^3/uL (1.2-3.4); Absolute Monocyte Count 0.44 10^3/uL (0.1-0.8); Absolute Neutrophil Count 6.88 10^3/uL (1.2-6.7); Basophils % 0.3; Eosinophils % 0.7; HCT 38.3 % (36.0-46.0); HGB 12.5 g/dL (11.2-15.7); Immature Grans % 0.7; Lymphocytes % 15.1; MCH 31.6 pg (27.0-33.0); MCHC 32.6 % (32.0-36.0); MPV 11.7 fL (8.0-11.0); Neutrophils % 78.2; Nucleated RBC 0 %; Platelet Count 135 10^3/uL (130-400); RBC 3.95 10^6/uL (3.93-5.22); RDW 12.4 % (11.7-14.6); RDW-SD 45.1 fL
[2020-04-28] MEDS: Normal Saline Flush 10 ML SYR IVP (11:51)
[2020-04-28] MEDS: Normal Saline 1,000 ML 125 ML IV (11:51)
[2020-04-28 11:57] LABS: ALT 34 U/L (14-59); AST 31 U/L (15-37); Alkaline Phosphatase 80 U/L (46-116); Anion Gap 6.2 mmol/L (3-11); BUN 22 mg/dL (7-18); Bilirubin, Total 0.7 mg/dL (0.2-1.0); CO2 32.8 mmol/L (21.0-32.0); CREATININE 1.14 mg/dL (0.55-1.02); Calcium 9.5 mg/dL (8.5-10.1); Chloride 101 mmol/L (98-107); Estimated GFR 45.63 (mL/min/1.73m2); Glucose 141 mg/dL (74-106); Sodium 140 mmol/L (136-145); TSH (W/Ref FT4) 3.06 uIU/mL (0.36-3.74); Total Protein 7.9 g/dL (6.4-8.2)
--- NOTE | 2020-04-28 12:30 | ED.GENADUL_ITS ---
Discharge Plan Disposition Patient Disposition: HOME Condition: Stable Discharge Details Clinical Impression: Spell of dizziness, Nausea & vomiting, Bradycardia, Hypokalemia Primary Care Provider: Cesar Padilla ED Provider: William Medina Home Meds and New Rx's Prescriptions: New potassium chloride 20 mEq tablet extended release 20 meq PO DAILY Qty: 4 RF: 0 Continued Remicade 100 mg recon soln IV Q10W RF: 0 aspirin [Adult Low Dose Aspirin] 81 mg tablet,delayed release (DR/EC) 81 mg PO DAILY Qty: 90 RF: 3 Shingrix (PF) 50 mcg/0.5 mL suspension for reconstitution 50 mcg IM ONCE Qty: 1 RF: 1 naproxen sodium [Aleve] 220 mg capsule 220 mg PO PRN RF: 0 atorvastatin 40 mg tablet 40 mg PO QHS Qty: 90 RF: 3 hydrochlorothiazide 12.5 mg tablet 12.5 mg PO QAM Qty: 90 RF: 3 ALOE VERA JUICE 1 bottle PO DAILY RF: 0 multivitamin [Daily Vitamin] 1 EACH tablet 1 ea PO DAILY RF: 0 donepezil 10 mg tablet 10 mg PO DAILY AM RF: 0 diclofenac sodium 1 % gel TOPICAL BID PRNRF: 0 Discharge Instructions Instructions: Hypokalemia (ED), Acute Nausea and Vomiting (ED) Additional Instructions: Please take potassium as prescribed starting tomorrow morning. There were incidental abnormalities noted on your CTA imaging including a note of atherosclerotic disease and nonspecific loculated air collection medial to left thyroid lobe. Official radiologic interpretations are pending. Be sure to discuss results with your primary care physician. Additional diagnostic testing may be necessary. Please contact your primary care physician to arrange follow-up to be seen early this week. Call on Thursday. You should have your potassium level rechecked. Return to the ER for any worsening or new concerning symptoms. Referrals: Cesar Padilla [Primary Care Provider] - Discharge Data Discharge Date/Time-TO BE ENTERED AT DEPARTURE: 04/28/20 18:30 Medical Decision Making 12:40 -- 80-year-old female here with generalized weakness, fatigue, dizziness, nausea and vomiting over the past few hours. Patient has no chest pain but consider atypical presentation for ACS. Screening ECG was reviewed and interpreted by me: Sinus bradycardia 55 bpm, normal axis, no STEMI. Will check troponin. Consider acute intracranial process - CT head pending. Consider UTI. Urinalysis pending. --Head interpreted by radiology: No acute process. UA reviewed and not consistent with urinary tract infection. Labs reviewed and hypokalemia with potassium of 3.0 noted. This may be contributing to patient's symptoms and also slight bradycardia. Patient given potassium 20 mEq IV and 20 mEq by mouth. Initial troponin and second delta troponin both negative. Repeat ECG with no significant changes. Patient will be given lactated Ringer's 500 mL bolus. --CTA of the head and neck interpreted by radiology: No occlusion or flow- limiting stenosis of the major visualized intracranial vasculature. No acute intracranial abnormality. Atherosclerotic disease at the bilateral carotid bifurcations. Approximately 60% proximal left ICA and 25% proximal right ICA stenosis. Mild to moderate distal left common carotid artery stenosis. Incidental nonspecific small loculated air collection medial to the left thyroid lobe. Possibly representing a tracheal diverticulum although direct communication with the trachea is difficult to properly delineate. Ectasia of ascending aorta measuring approximately 3.6 cm. I did review cardiac telemetry from her prolonged ED observation. No arrhythmias noted, she did have a few PVCs, her heart rate has remained for the most part in the 50s. She did go up into the 60s and also had had a brief episode in the 40s when I believe she was resting. Nursing ambulated patient around the department. Dizziness has resolved. Vitals stable. Patient asymptomatic. Patient was given additional potassium 20 mEq by mouth. Plan will be to prescribe her 20 mg daily for the next few days. I will have her follow-up with her primary care physician. She will need to have labs rechecked and be reassessed. There are some incidental findings noted as above on her CT imaging. Official radiologic interpretations are pending. Additional outpatient diagnostic testing may be necessary. Patient was instructed to follow-up with her primary care physician regarding this. Disposition decision was made weighing the risks and benefits of hospitalization versus outpatient treatment, the risk for further decompensation, and the patient's wishes. The patient was stable and requested discharge. Prior to discharge, my usual and customary return precautions were reviewed with the patient - this included follow-up instructions and reason to return to the emergency department if condition worsens, does not improve as expected, or other new concerns arise. HPI General Mode of arrival: ambulatory . Date/Time Provider Initiated Documentation: 04/28/20 11:12 . Limitations to Documentation: no limitations . Information obtained by: patient . HPI Narrative: 80-year-old female presents today with chief complaint of generalized weakness. Patient notes she has had generalized weakness and has been moderate to severe with no modifiers over the past couple hours. She has associated nausea and vomiting as well as some dizziness. She denies focal weakness or numbness or tingling. She has no headache. No chest pain. No abdominal pain. Related Data Home Medications Medication Instructions Recorded Confirmed Aloe Vera Juice 1 bottle PO DAILY 11/30/12 04/28/20 multivitamin [Daily Vitamin] 1 ea PO DAILY 11/30/12 04/28/20 naproxen sodium 220 mg capsule 220 mg PO PRN cap 11/01/18 04/28/20 infliximab 100 mg intravenous IV Q10W each 11/24/18 07/11/19 solution aspirin 81 mg tablet,delayed 81 mg PO DAILY #90 tab 08/15/19 04/28/20 release varicella-zoster glycoE [id number] 50 mcg IM ONCE #1 each 08/15/19 08/15/19 adj(PF) 50 mcg/0.5 mL IM susp, kit atorvastatin 40 mg tablet 40 mg PO QHS #90 tab-cap 10/13/19 04/28/20 hydrochlorothiazide 12.5 mg tablet 12.5 mg PO QAM #90 tab-cap 10/13/19 04/28/20 diclofenac sodium TOPICAL BID PRN 04/28/20 donepezil 10 mg PO DAILY AM 04/28/20 04/28/20 potassium chloride 20 meq PO DAILY #4 tab 04/28/20 Previous Rx's Medication Instructions Recorded aspirin 81 mg tablet,delayed 81 mg PO DAILY #90 tab 08/15/19 release varicella-zoster glycoE [id number] 50 mcg IM ONCE #1 each 08/15/19 adj(PF) 50 mcg/0.5 mL IM susp, kit atorvastatin 40 mg tablet 40 mg PO QHS #90 tab-cap 10/13/19 hydrochlorothiazide 12.5 mg tablet 12.5 mg PO QAM #90 tab-cap 10/13/19 potassium chloride 20 meq PO DAILY #4 tab 04/28/20 Allergies Allergy/AdvReac Type Severity Reaction Status Date / Time Sulfa (Sulfonamide Allergy Intermediate hives Verified 04/28/20 11:14 Antibiotics) codeine Allergy Unknown rash Verified 04/28/20 11:14 mesalamine [From Apriso] AdvReac Intermediate Diarrhea Verified 04/28/20 11:14 General Stated Complaint: Nausea/Vomit/Diar ALEX: 3 Review of Systems All systems reviewed & are unremarkable except as noted in HPI and below Constitutional Constitutional: Denies fever(s) Gastrointestinal Gastrointestinal: Reports as per HPI [facility] Medical History (Updated 04/28/20 @ 18:06 by William Medina MD) Ankylosing spondylitis (08/03/1968) dx [facility] 08/08/83 Dr Mya Santos; spine; Rheum f/u 12/2016 CT c-spine 10/22/2014 Essential hypertension with goal blood pressure less than 140/90 (10/06/13) goal <150/90 Generalized osteoarthrosis (08/13/11) LS spine, facet arthopathy Hearing loss (08/13/11) High risk medications (not anticoagulants) long-term use (09/22/06) Remicaid rx for enteritis and spondylitis, Price Olvera (see Aug 2006 note) and Vlad; blood test every 20 wks (every other Remicade dose per Dr. 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 Hypertension Sister , multiple myeloma at age 49. Ovarian cancer Bone cancer Brother Heart disease Hypertension Social History Smoking/Tobacco Use Status: Never Alcohol Intake: never Drug use: Never Substance use type: does not use Household members: significant other Housing: house Pets and animals: No Current gender identity: female What is your relationship status?: living with partner Panel score (0-1 are the most socially isolated patients): 1 What type of physical activity do you participate in: walking Duration: 15-30 minutes/day Frequency: 5-6 times per week Seatbelt use: always Water heater temp set <120 deg: Yes Working smoke detector in home: Yes Carbon monox detector in home: Yes Do you feel safe at home: Yes Do you feel safe in your relationship?: Yes Exam Const General: cooperative and no acute distress Orientation: alert, awake, oriented to person, oriented to place and not oriented to time (Unsure of year and month) [facility] Head: atraumatic Mouth: moist mucous membranes Eyes Conjunctivae: normal conjunctivae Sclera: normal sclerae Pupils: PERRL and accommodation normal EOM: EOM intact bilaterally Neck Neck: trachea midline and supple Resp Auscultation: clear to auscultation bilaterally, no rales, no rhonchi and no wheezes Cardio Rate: bradycardic and not tachycardic Rhythm: regular rhythm GI Palpation: soft, not firm, no guarding, no masses, not rigid and nontender Skin General skin exam: no rashes or lesions noted Neuro General: patient alert, patient awake, oriented Patient Orientation: Person and Place and tone normal Cranial Nerves: CN's II-XI intact bilaterally Speech: speech normal Motor: strength 5/5 throughout Sensory Exam: no sensory deficits noted Extrem General: no edema Psych Appearance: grossly normal Speech and Movement: speech and movement normal Course Vital Signs Vital signs: Vital Signs Pulse 60 04/28/20 11:09 Blood Pressure 149/41 H 04/28/20 11:09 Pulse Oximetry 96 04/28/20 11:09 Temperature Source Oral 04/28/20 11:09 Pulse 53 L 04/28/20 12:00 Pulse 56 L 04/28/20 12:00 Respiratory Rate 10 L 04/28/20 12:00 Respiratory Effort Non-Labored 04/28/20 11:13 Blood Pressure 133/43 L 04/28/20 12:00 Blood Pressure Mean 66 04/28/20 12:00 Blood Pressure Position Sitting 04/28/20 11:09 Pulse Oximetry 98 04/28/20 12:00 Oxygen Delivery Method Room Air 04/28/20 11:09 Oxygen Flow Rate 0 04/28/20 11:09 Lab/Test Results Lab/Test Results: Laboratory Tests Range/Units 04/28/20 04/28/20 11:12 11:12 WBC (4.4-10.8) 10^3/uL 8.80 RBC (3.93-5.22) 10^6/uL 3.95 Hgb (11.2-15.7) g/dL 12.5 Hct (36.0-46.0) % 38.3 MCV (80-95) fL 97.0 H MCH (27.0-33.0) pg 31.6 MCHC (32.0-36.0) % 32.6 RDW (11.7-14.6) % 12.4 Plt Count (130-400) 10^3/uL 135 MPV (8.0-11.0) fL 11.7 H Immature Gran % 0.7 Neutrophils % 78.2 Lymphocytes % 15.1 Monocytes % 5.0 Eosinophils % 0.7 Basophils % 0.3 Nucleated RBC % % 0 Absolute Neutrophils (1.2-6.7) 10^3/uL 6.88 H Absolute Lymphocytes (1.2-3.4) 10^3/uL 1.33 Absolute Monocytes (0.1-0.8) 10^3/uL 0.44 Absolute Eosinophils (0.0-0.7) 10^3/uL 0.06 Absolute Basophils (0.0-0.2) 10^3/uL 0.03 Sodium (136-145) mmol/L 140 Potassium (3.5-5.1) mmol/L 3.0 L Chloride (98-107) mmol/L 101 Carbon Dioxide (21.0-32.0) mmol/L 32.8 H Anion Gap (3-11) mmol/L 6.2 BUN (7-18) mg/dL 22 H Creatinine (0.55-1.02) mg/dL 1.14 H Estimated GFR/1.73 m2 (mL/min/1.73m2) 45.63 Glucose (74-106) mg/dL 141 H Calcium (8.5-10.1) mg/dL 9.5 Total Bilirubin (0.2-1.0) mg/dL 0.7 AST (15-37) U/L 31 ALT (14-59) U/L 34 Alkaline Phosphatase (46-116) U/L 80 Total Protein (6.4-8.2) g/dL 7.9 Albumin (3.4-5.0) g/dL 4.0 TSH (0.36-3.74) uIU/mL 3.06
--- NOTE | 2020-04-28 12:31 | DI.VRAD_ITS ---
PROCEDURE INFORMATION: Exam: CT Head Without Contrast Exam date and time: 04/28/2020 11:26 AM Age: 80 years old Clinical indication: Altered mental status/memory loss; Other: Nausea/vomiting TECHNIQUE: Imaging protocol: Computed tomography of the head without contrast. Radiation optimization: All CT scans at this facility use at least one of these dose optimization techniques: automated exposure control; mA and/or kV adjustment per patient size (includes targeted exams where dose is matched to clinical indication); or iterative reconstruction. COMPARISON: CT HEAD WO 05/08/2018 4:22 PM FINDINGS: Brain: No intracranial hemorrhage or acute large territorial infarction. 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 Cerebral ventricles: Prominence of the ventricles and sulci, suggesting parenchymal volume loss/ atrophy. No hydrocephalus. Bones/joints: No acute calvarial fracture. Stable degenerative changes at C1-C2 with heterotopic ossification indenting the ventral spinal canal. Paranasal sinuses: Visualized sinuses are unremarkable. No fluid levels. Mastoid air cells: Visualized mastoid air cells are well aerated. Vasculature: Intracranial atherosclerosis. Soft tissues: Unremarkable. Nasal cavity: Stable incidental left middle turbinate apollo bullosa. Rightward nasal deviation. IMPRESSION: 1. No intracranial hemorrhage or acute large territorial infarction. 2. 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 Dictated and Authenticated by: Yvonne Palacios MD. Ordering:EROS Thomas MD
[2020-04-28 13:03] LABS: Troponin I < 0.05 ng/mL (<0.06)
[2020-04-28] MEDS: POTASSIUM CHLORIDE 20 MEQ/100 ML BAG 50 MEQ IVPB (13:05)
[2020-04-28] MEDS: Potassium Chloride 20 MEQ TABCR PO ×2 (13:05→18:23)
[2020-04-28 13:53] LABS: Bilirubin Negative (Negative); Blood Negative (Negative); Clarity Clear (Clear); Glucose Negative (Negative); Ketones Negative (Negative); Leukocyte Esterase Negative (Negative); Nitrite Negative (Negative); Specific Gravity 1.025 (1.005-1.025); Urobilinogen 0.2 EU/dL (Up TO 0.2); pH 7.5 (5-8)
--- NOTE | 2020-04-28 14:00 | DI.CT_ITS ---
EXAM: CT BRAIN NECK CTA CLINICAL HISTORY: dizziness, nausea. TECHNIQUE: Imaging Protocol: Axial CT angiography was performed with multi-slice acquisition and mu lti-planar and/or 3D reconstructions. CONTRAST MATERIAL: Intravenous: Omnipaque 350 Contrast volume:structured data in ml COMPARISON: No exams were available for comparison FINDINGS: CT Head W/O: Ventricles and Extra axial spaces: Normal in size and morphology for the patient's age. Hemorrhage: None. Cerebral parenchyma: Atrophy and white matter changes of small vessel disease. Midline shift: None. Brainstem/Cerebellum: Normal. Calvarium: Normal. Visualized Paranasal sinuses/Mastoids: Clear. Soft Tissues: Unremarkable. CTA Brain W: Internal Carotid Arteries: Petrous: Normal. Cavernous: Normal. Cerebral: Normal. Middle Cerebral Arteries: Right: No aneurysm, occlusion or significant stenosis. Left: No aneurysm, occlusion or significant stenosis. Anterior Cerebral Arteries: Right: No aneurysm, occlusion or significant stenosis. Left: No aneurysm, occlusion or significant stenosis. Posterior cerebral Arteries: Right: No aneurysm, occlusion or significant stenosis. Left: No aneurysm, occlusion or significant stenosis. Vertebral Arteries: Right: No aneurysm, occlusion or significant stenosis. Left: No aneurysm, occlusion or significant stenosis. Basilar Artery: No aneurysm, occlusion or significant stenosis. CTA Neck W: Common Carotid: Right: No aneurysm, occlusion or significant stenosis. Mild plaque is seen at the bulb. Left: No aneurysm, occlusion or significant stenosis. Calcified plaque is seen in the distal portion and bulb. External Carotid: Right: No aneurysm, occlusion or significant stenosis. Left: No aneurysm, occlusion or significant stenosis. Internal Carotid: Right: No aneurysm, occlusion or significant stenosis. Calcified plaque is noted at the proximal int ernal carotid artery causing mild stenosis. Left: No aneurysm, occlusion. There is combination of calcified and noncalcified plaque causing isidro rowing of approximately 60 percent of the proximal internal carotid artery. Vertebral Artery: Right: No aneurysm, occlusion or significant stenosis. Mild calcification causes mild stenosis. Left: No aneurysm, occlusion or significant stenosis. Lung Apices: Mild scarring and expiratory changes. Bones: Degenerative changes in the cervical spine. Soft Tissues: Normal. IMPRESSION: 1. Normal CTA examination of the [place] of [place]. 2. Unremarkable noncontrast CT Head. 3. Approximately 60 percent stenosis of the proximal left internal carotid artery. Mild stenosis of the proximal right internal carotid artery and right vertebral artery. RADIATION DOSE DELIVERED: 1,088.72mGy.cm Total DLP DATA REPOSITORY: All CT scans at this facility are submitted to the National Radiology Data Registry (NRDR) Dose Index Registry (DIR) with the [employer] (ACR). RADIATION OPTIMIZATION: All CT scans at this facility use at least one of these dose optimization te chniques: automated exposure control; mA and/or kV adjustment per patient size (includes targeted exa ms where dose is matched to clinical indication); or iterative reconstruction.
--- NOTE | 2020-04-28 14:15 | RT.EKG_ITS ---
APPROVED REPORT Exam: Resting ECG Patient Location: E HR:53 bpm ECG Measurements Heart Rate 53 AXIS MO 181 P 69 QRSd 105 QRS 46 QT 490 T 60 QTc 461 Conclusion Sinus bradycardia...rate< 60
[2020-04-28 14:44] LABS: Troponin I < 0.05 ng/mL (<0.06)
[2020-04-28] MEDS: Lactated Ringers 500 ML IV (15:10)
[2020-04-28] MEDS: Omnipaque 350 MG/ML 100 ML BTL 85 ML IJ (15:42)
--- NOTE | 2020-04-28 16:55 | DI.VRAD_ITS ---
PROCEDURE INFORMATION: Exam: CT Angiography Head With Contrast Exam date and time: 04/28/2020 2:14 PM Age: 80 years old Clinical indication: Dizziness and giddiness TECHNIQUE: Imaging protocol: Computed tomography angiography of the head with intravenous contrast. 3D rendering (Not supervised by radiologist): MIP and/or 3D reconstructed images were created by the technologist. Contrast material: OMNIPAQUE 350; Contrast volume: 85 ml; Contrast route: IV; COMPARISON: CT HEAD WO 04/28/2020 11:35 AM FINDINGS: ANTERIOR CIRCULATION: Right internal carotid artery: Intracranial segment is patent with no flow-limiting stenosis or occlusion. Right middle cerebral artery: No occlusion or flow-limiting stenosis. Right anterior cerebral artery: Unremarkable. No occlusion or significant stenosis. Left internal carotid artery: Intracranial segment is patent with no flow-limiting stenosis or occlusion. Left middle cerebral artery: No occlusion or flow-limiting stenosis. Left anterior cerebral artery: Unremarkable. No occlusion or significant stenosis. POSTERIOR CIRCULATION: Right vertebral artery: No occlusion or significant stenosis. Left vertebral artery: Left dominant vertebral artery. No occlusion or significant stenosis. Basilar artery: No occlusion or flow-limiting stenosis. Right posterior cerebral artery: No occlusion or flow-limiting stenosis. Left posterior cerebral artery: No occlusion or flow-limiting stenosis. Brain: No intracranial hemorrhage or acute large territorial infarction. 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 Vasculature: Intracranial atherosclerosis. Cerebral ventricles: Prominence of the ventricles and sulci, suggesting parenchymal volume loss/ atrophy. No hydrocephalus. Mastoid air cells: Visualized mastoid air cells are well aerated. Paranasal sinuses: Visualized sinuses are unremarkable. No fluid levels. Incidental left middle turbinate apollo bullosa. Bones/joints: No acute calvarial fracture. Soft tissues: Unremarkable. IMPRESSION: 1. No occlusion or flow-limiting stenosis of the major visualized intracranial vasculature. 2. No acute intracranial abnormality. PROCEDURE INFORMATION: Exam: CT Angiography Neck With Contrast Exam date and time: 04/28/2020 2:14 PM Age: 80 years old Clinical indication: Dizziness and giddiness TECHNIQUE: Imaging protocol: Computed tomography angiography of the neck with intravenous contrast. 3D rendering (Not supervised by radiologist): MIP and/or 3D reconstructed images were created by the technologist. Contrast material: OMNIPAQUE 350; Contrast volume: 85 ml; Contrast route: IV; COMPARISON: CT HEAD WO 04/28/2020 11:35 AM FINDINGS: Right common carotid artery: Atherosclerosis at the right common carotid artery bifurcation. Right internal carotid artery: Approximately 25% proximal right internal carotid artery stenosis associated with calcified plaque along lateral margin. Right external carotid artery: No occlusion or stenosis of the origin. Right vertebral artery: Mild mid right vertebral artery stenosis from calcified. Left common carotid artery: [id number] distal left common carotid artery stenosis associated with calcified and noncalcified plaque. Left internal carotid artery: Approximately 60% proximal left internal carotid artery stenosis associated with calcified and noncalcified plaque. Left external carotid artery: No occlusion or stenosis of the origin. Left vertebral artery: No stenosis. No dissection or occlusion. Subclavian arteries: Atherosclerotic plaque at the origin of left subclavian artery. Aorta: Ectasia of ascending aorta measuring approximately 3.6 cm. Atherosclerotic disease of the aortic arch. Trachea: Incidental nonspecific small loculated air collection medial to the left thyroid lobe, possibly representing a tracheal diverticulum although direct communication with the trachea is difficult to properly delineate. Bones/joints: Multilevel degenerative changes of the cervical. Sclerosis of C2 dens with heterotopic ossification indenting the ventral thecal sac with mild stenosis possibly associated with remote type II dens fracture. No evidence acute osseous abnormality Soft tissues: No significant soft tissue swelling. Lungs: Mosaic attenuation pattern associated with phase of inspiration or small airway disease within the bilateral lungs. IMPRESSION: 1. Atherosclerotic disease at the bilateral carotid bifurcations. 2. Approximately 60% proximal left ICA and 25% proximal right ICA stenosis by NASCET criteria. 3. [id number] distal left common carotid artery stenosis. 4. Additional findings, as detailed above. REFERENCES: NASCET CRITERIA. The degree of internal carotid artery stenosis is based on NASCET criteria. Normal is no stenosis. Mild is less than 50% stenosis. Moderate is 50-69% stenosis. Severe is 70% to 99% stenosis. Total occlusion is no detectable patent lumen. Dictated and Authenticated by: Yvonne Palacios MD. Ordering:EROS Thomas MD
--- NOTE | 2020-04-28 18:49 | NUR.NOTE ---
Referral faxed to PCP Dr Valerie Jarvis [facility].Nursing Note:
== END 2020-04-28 18:30 | disposition home or self-care (01) ==
PROVIDERS: Emergency Provider Student in an Organized Health Care Education/Training Program; PCP Family Medicine
DX: E87.6 Hypokalemia (principal); R00.1 Bradycardia, unspecified; R42 Dizziness and giddiness; R11.2 Nausea with vomiting, unspecified; R93.0 Abnormal findings on diagnostic imaging of skull and head, not elsewhere classified; I10 Essential (primary) hypertension
CPT/HCPCS: 36415; 70496; 70498; 80053; 93005; 96361; 96365; 96366; 99285; 70450; 81003; 84443; 84484; 85025; 93010; J3480; J3490

== ENCOUNTER 2020-05-01 11:50 | Outpatient (REF) | payer OTHER, SELFPAY ==
[2020-05-01 18:45] LABS: Anion Gap 6.5 mmol/L (3-11); BUN 16 mg/dL (7-18); CO2 31.5 mmol/L (21.0-32.0); CREATININE 1.03 mg/dL (0.55-1.02); Calcium 9.6 mg/dL (8.5-10.1); Chloride 102 mmol/L (98-107); Glucose 88 mg/dL (74-106); Potassium 4.2 mmol/L (3.5-5.1); Sodium 140 mmol/L (136-145)
== END 2020-05-01 12:10 ==
LOC: NCHCN 11:50
PROVIDERS: PCP Family Medicine; Visit Provider Family Medicine
DX: E87.6 Hypokalemia (principal); N18.3 Chronic kidney disease, stage 3 (moderate)
CPT/HCPCS: 80048

== ENCOUNTER 2020-05-29 09:00 | Outpatient (RCR) | payer OTHER, SELFPAY ==
[2020-05-29] VITALS (7 sets, daily range): BP systolic 111–133; BP diastolic 68–75; PULSE 46–51; RESP 17–18; TEMP 36–36.6; O2SAT 99
[2020-05-29] MEDS: diphenhydrAMINE 25 MG CAP PO (09:09)
[2020-05-29] MEDS: Normal Saline Flush 10 ML SYR IVP (09:09)
[2020-05-29] MEDS: Acetaminophen 325 MG TAB 650 MG PO (09:09)
== END 2020-06-02 23:59 | disposition home or self-care (01) ==
LOC: INF 09:00
PROVIDERS: PCP Family Medicine; Visit Provider Family Medicine
DX: K50.90 Crohn's disease, unspecified, without complications (principal)
CPT/HCPCS: 96365; 96366

== ENCOUNTER 2020-06-14 10:08 | Outpatient (REF) | payer OTHER, SELFPAY ==
[2020-06-14 18:31] LABS: BUN 26 mg/dL (7-18); CREATININE 1.05 mg/dL (0.55-1.02); Calcium 8.8 mg/dL (8.5-10.1); Chloride 103 mmol/L (98-107); Estimated GFR 50.18 (mL/min/1.73m2); Glucose 92 mg/dL (74-106); Potassium 3.6 mmol/L (3.5-5.1); Sodium 139 mmol/L (136-145)
== END 2020-06-14 10:28 ==
LOC: NCHCN 10:08
PROVIDERS: PCP Family Medicine; Visit Provider Family Medicine
DX: E87.6 Hypokalemia (principal)
CPT/HCPCS: 80048

== ENCOUNTER 2020-08-07 02:32 | Outpatient (RCR) | payer MEDICARE, OTHER, SELFPAY ==
[2020-08-07] VITALS (7 sets, daily range): BP systolic 99–148; BP diastolic 42–55; PULSE 48–57; RESP 17–19; TEMP 36–36.2; O2SAT 97–99
[2020-08-07] MEDS: diphenhydrAMINE 25 MG CAP PO (09:51)
[2020-08-07] MEDS: Acetaminophen 325 MG TAB 650 MG PO (09:51)
[2020-08-07] MEDS: Normal Saline Flush 10 ML SYR IVP ×2 (10:04→10:15)
[2020-08-07 10:17] LABS: Abs Immature Grans 0.01 10^3/uL (0.0-0.06); Absolute Basophil Count 0.06 10^3/uL (0.0-0.2); Absolute Eosinophil Count 0.17 10^3/uL (0.0-0.7); Absolute Lymphocyte Count 1.51 10^3/uL (1.2-3.4); Absolute Monocyte Count 0.45 10^3/uL (0.1-0.8); Basophils % 1.4; Eosinophils % 3.9; HCT 35.4 % (36.0-46.0); HGB 11.4 g/dL (11.2-15.7); Immature Grans % 0.2; MCH 31.2 pg (27.0-33.0); MCHC 32.2 % (32.0-36.0); MPV 11.8 fL (8.0-11.0); Monocytes % 10.4; Neutrophils % 49.1; Nucleated RBC 0 %; Platelet Count 145 10^3/uL (130-400); RBC 3.65 10^6/uL (3.93-5.22); RDW 12.9 % (11.7-14.6); RDW-SD 46.2 fL; WBC 4.31 10^3/uL (4.4-10.8)
[2020-08-07 10:18] LABS: Absolute Neutrophil Count 2.12 10^3/uL (1.2-6.7)
[2020-08-07 10:37] LABS: ALT 39 U/L (14-59); AST 32 U/L (15-37); Albumin 3.8 g/dL (3.4-5.0); Alkaline Phosphatase 73 U/L (46-116); Bilirubin, Direct 0.13 mg/dL (0.00-0.20); Bilirubin, Total 0.7 mg/dL (0.2-1.0); Total Protein 7.5 g/dL (6.4-8.2)
[2020-08-07 10:38] LABS: C-Reactive Protein < 0.05 mg/dL (0.0-0.3)
== END 2020-09-02 23:59 | disposition home or self-care (01) ==
LOC: INF 02:32
PROVIDERS: PCP Family Medicine; Visit Provider Family Medicine
DX: K50.90 Crohn's disease, unspecified, without complications (principal)
CPT/HCPCS: 80076; 96365; 96366; 96413; 96415; 85025; 86140; J1745

== ENCOUNTER 2020-10-16 02:02 | Outpatient (RCR) | payer MEDICARE, OTHER, SELFPAY ==
[2020-09-03 00:02] VITALS: BP 129/42; PULSE 49; RESP 19; TEMP 36
[2020-10-16] VITALS (7 sets, daily range): BP systolic 114–132; BP diastolic 57–73; PULSE 46–56; RESP 16; TEMP 36.6; O2SAT 98–100
[2020-10-16] MEDS: Acetaminophen 325 MG TAB (09:19)
[2020-10-16] MEDS: diphenhydrAMINE 25 MG CAP (09:23)
[2020-10-16 09:44] LABS: Abs Immature Grans 0.01 10^3/uL (0.0-0.06); Absolute Basophil Count 0.06 10^3/uL (0.0-0.2); Absolute Eosinophil Count 0.23 10^3/uL (0.0-0.7); Absolute Lymphocyte Count 1.99 10^3/uL (1.2-3.4); Absolute Monocyte Count 0.41 10^3/uL (0.1-0.8); Absolute Neutrophil Count 1.73 10^3/uL (1.2-6.7); Basophils % 1.4; Eosinophils % 5.2; HCT 35.5 % (36.0-46.0); HGB 11.7 g/dL (11.2-15.7); Immature Grans % 0.2; Lymphocytes % 44.9; MCH 31.6 pg (27.0-33.0); MCV 95.9 fL (80-95); MPV 11.3 fL (8.0-11.0); Monocytes % 9.3; Nucleated RBC 0 %; Platelet Count 144 10^3/uL (130-400); RDW 12.5 % (11.7-14.6); RDW-SD 44.3 fL; WBC 4.43 10^3/uL (4.4-10.8)
[2020-10-16 09:54] LABS: ALT 38 U/L (14-59); AST 33 U/L (15-37); Albumin 3.8 g/dL (3.4-5.0); Alkaline Phosphatase 75 U/L (46-116); Bilirubin, Direct 0.2 mg/dL (0.0-0.2); Bilirubin, Total 0.7 mg/dL (0.2-1.0); Total Protein 7.8 g/dL (6.4-8.2)
[2020-10-16 10:10] LABS: C-Reactive Protein < 0.05 mg/dL (0.0-0.3)
== END 2020-10-31 23:59 | disposition home or self-care (01) ==
LOC: INF 02:02
PROVIDERS: Internal Medicine Gastroenterology; PCP Family Medicine; Visit Provider Family Medicine
DX: K50.90 Crohn's disease, unspecified, without complications (principal)
CPT/HCPCS: 36415; 80076; 96365; 96366; 85025; 86140; J1745

== ENCOUNTER 2020-10-30 02:39 | Outpatient (CLI) | payer MEDICARE, OTHER, SELFPAY ==
--- NOTE | 2020-10-30 15:45 | DI.MRI_ITS ---
EXAM: MR BRAIN WO CLINICAL HISTORY: HEADACHE,R51.9,WHITE MATTER DISEASE,R90.82,DEMENTIA,. TECHNIQUE: Multiplanar multisequence MRI of the brain was performed. CONTRAST MATERIAL: Noncontrast COMPARISON: CT CT HEAD WO from 10/17/[address] HEAD WO from 10/17/2020 FINDINGS: There is mild atrophy, consistent with the patient's age. There are moderate to severe white matter changes consistent small vessel disease. No acute infarct, hemorrhage or mass is seen. The ventricl es are normal in size for degree of atrophy . The vascular flow voids appear intact. The orbits pit uitary are unremarkable. IMPRESSION: Atrophy and white matter changes of small vessel disease. No acute abnormality. DATA REPOSITORY:
== END 2020-10-30 02:59 ==
PROVIDERS: PCP Family Medicine; Visit Provider Family Medicine
DX: R51.9 Headache, unspecified (principal); R90.82 White matter disease, unspecified; F03.90 Unspecified dementia, unspecified severity, without behavioral disturbance, psychotic disturbance, mood disturbance, and anxiety
CPT/HCPCS: 70551

== ENCOUNTER 2020-12-02 19:44 | Emergency (ER) | payer MEDICARE, OTHER, SELFPAY ==
[2020-12-02 19:51] VITALS: BP 163/55; PULSE 79; RESP 16; TEMP 36.5; O2SAT 96
--- NOTE | 2020-12-02 20:00 | DI.RAD_ITS ---
Exam(s) XR ABD FLAT UPRIGHT PA CHEST EXAM: 2D digital imaging was performed. CLINICAL HISTORY: Constipation. COMPARISON: CR CHEST 2 VIEWS PA,LAT from 04/21/2017 TECHNIQUE: Supine and upright abdomen and PA chest views were performed. FINDINGS: BOWEL GAS PATTERN: Nondistended. No free air. There is a moderate amount of stool throughout the co ana. CALCIFICATIONS: No radiopaque calcifications. OSSEOUS STRUCTURES: Normal for age. OTHER FINDINGS: None. LUNGS Clear. No pleural abnormality seen. No pleural effusion or pneumothorax. HEART: Normal. Pulmonary vasculature is unremarkable. MEDIASTINUM: Normal. OTHER FINDINGS: None. IMPRESSION: 1. Nonobstructive bowel gas pattern. 2. Moderate amount of retained colonic stool. 3. No free air. 4. No acute pulmonary process. DATA REPOSITORY: RADIATION DOSE DELIVERED:
--- NOTE | 2020-12-02 20:11 | ED.GENADUL_ITS ---
Discharge Plan Disposition Patient Disposition: HOME Condition: Improving Discharge Details Clinical Impression: Constipation Primary Care Provider: Cesar Padilla ED Provider: Abby Carranza Home Meds and New Rx's Prescriptions: No Action Remicade 100 mg recon soln IV Q10W RF: 0 aspirin [Adult Low Dose Aspirin] 81 mg tablet,delayed release (DR/EC) 81 mg PO DAILY Qty: 90 RF: 3 Shingrix (PF) 50 mcg/0.5 mL suspension for reconstitution 50 mcg IM ONCE Qty: 1 RF: 1 naproxen sodium [Aleve] 220 mg capsule 220 mg PO PRN RF: 0 atorvastatin 40 mg tablet 40 mg PO QHS Qty: 90 RF: 3 hydrochlorothiazide 12.5 mg tablet 12.5 mg PO QAM Qty: 90 RF: 3 ALOE VERA JUICE 1 bottle PO DAILY RF: 0 multivitamin [Daily Vitamin] 1 EACH tablet 1 ea PO DAILY RF: 0 donepezil 10 mg tablet 10 mg PO DAILY AM RF: 0 diclofenac sodium 1 % gel TOPICAL BID PRNRF: 0 potassium chloride 20 mEq tablet extended release 20 meq PO DAILY Qty: 4 RF: 0 Discharge Instructions Instructions: Constipation (ED) Additional Instructions: Consider taking Miralax or other similar gently laxative 1 packet a day mixed with 8oz of preferred liquid daily. Follow up with primary care provider in 3-5 days. Return to ED sooner if any worsening or concerns. Increase oral fluids. Increase daily fiber intake, you may try prunes or warm prune juice as well. Referrals: Cesar Padilla [Primary Care Provider] - Medical Decision Making 50-year-old female presents the ER chief complaint of constipation x3 days she reports using Dulcolax laxative at home and today she has had constant hard stools which she denies being painful. Does have some mid periumbilical soreness no nausea vomiting no fever chills. No hematochezia. Denies any shortness of breath. She did endorse some chest pain which she states occurred on the way over here which is not present on initial exam. Has a past medical history of hypertension, osteoporosis hypercholesterolemia, memory changes. This time EKG ordered, serial troponins, CMP CBC, urinalysis. I do strongly suspect this is all constipation related. CR CHEST 2 VIEWS PA,LAT 04/21/2017 10:23 AM FINDINGS: Lungs: Lungs are symmetrically hyperinflated. No focal consolidation or pulmonary edema. Pleural spaces: No pleural effusions. No pneumothorax. Heart/Mediastinum: No cardiomegaly. Gastrointestinal tract: Nonobstructive bowel gas pattern with gas scattered throughout the small and large bowel. There is moderate colonic stool. No focal dilation or air-fluid levels to suggest obstruction. Intraperitoneal space: No free air. Bones/joints: Scattered degenerative/senescent changes of the osseous structures. Soft tissues: No focal abnormality. IMPRESSION: 1. Nonobstructive bowel gas pattern. 2. Moderate colonic stool. 3. Hyperinflation. Soapsuds enema ordered. In-N-Out cath for urinalysis obtained by billing and accounting staff assistant she does report that patient has some erythema to the perineal area and some irritation. Soapsuds enema successful, patient reports improvement in symptoms. Large BM produced. Will discharge patient home with PCP follow up. HPI General Mode of arrival: ambulatory . Date/Time Provider Initiated Documentation: 12/02/20 19:46 . Limitations to Documentation: no limitations . Information obtained by: patient and family () . HPI Narrative: 50-year-old female presents the ER chief complaint of constipation x3 days she reports using Dulcolax laxative at home and today she has had constant hard stools which she denies being painful. Does have some mid periumbilical soreness no nausea vomiting no fever chills. No hematochezia. Denies any shortness of breath. She did endorse some chest pain which she states occurred on the way over here which is not present on initial exam. Has a past medical history of hypertension, osteoporosis hypercholesterolemia, memory changes. Related Data Home Medications Medication Instructions Recorded Confirmed Aloe Vera Juice 1 bottle PO DAILY 11/30/12 04/28/20 multivitamin [Daily Vitamin] 1 ea PO DAILY 11/30/12 12/02/20 naproxen sodium 220 mg capsule 220 mg PO PRN cap 11/01/18 12/02/20 infliximab 100 mg intravenous IV Q10W each 11/24/18 07/11/19 solution aspirin 81 mg tablet,delayed 81 mg PO DAILY #90 tab 08/15/19 12/02/20 release varicella-zoster glycoE [id number] 50 mcg IM ONCE #1 each 01/13/20 01/13/20 adj(PF) 50 mcg/0.5 mL IM susp, kit atorvastatin 40 mg tablet 40 mg PO QHS #90 tab-cap 10/13/19 12/02/20 hydrochlorothiazide 12.5 mg tablet 12.5 mg PO QAM #90 tab-cap 10/13/19 12/02/20 diclofenac sodium TOPICAL BID PRN 04/28/20 donepezil 10 mg PO DAILY AM 04/28/20 12/02/20 potassium chloride 20 meq PO DAILY #4 tab 04/28/20 12/02/20 Previous Rx's Medication Instructions Recorded aspirin 81 mg tablet,delayed 81 mg PO DAILY #90 tab 08/15/19 release varicella-zoster glycoE [id number] 50 mcg IM ONCE #1 each 08/15/19 adj(PF) 50 mcg/0.5 mL IM susp, kit atorvastatin 40 mg tablet 40 mg PO QHS #90 tab-cap 10/13/19 hydrochlorothiazide 12.5 mg tablet 12.5 mg PO QAM #90 tab-cap 10/13/19 potassium chloride 20 meq PO DAILY #4 tab 04/28/20 Allergies Allergy/AdvReac Type Severity Reaction Status Date / Time Sulfa (Sulfonamide Allergy Intermediate hives Verified 12/02/20 20:13 Antibiotics) codeine Allergy Unknown rash Verified 12/02/20 20:13 mesalamine [From Apriso] AdvReac Intermediate Diarrhea Verified 12/02/20 20:13 General ALEX: 3 Review of Systems Narrative: Constitutional: Negative for weight loss, alert and oriented, well groomed, normal body habitus, appears comfortable. HEENT: Denies trauma, headaches, blurry vision, nasal discharge, sore throat, tr ouble swallowing. Chest: Denies palpitations, irregular rhythm, reports chest pain which started prior to arrival lasting about 2 to 3 minutes which has resolved upon arrival Respiratory: Denies Shortness of breath, cough, hemoptysis. GI: Denies nausea, vomiting, positive constipation, periumbilical abdominal soreness : Denies dysuria, hematuria, flank pain, rectal bleeding. Neuro: Denies dizziness, blurry vision, weakness, syncope, headache or facial numbness. Hematologic: Denies easy bruising, intolerance to heat or cold, hair loss. [facility] Medical History (Updated 12/02/20 @ 22:15 by Abby Carranza) Ankylosing spondylitis (08/03/1968) dx [facility] [place] 08/08/83 Dr Mya Santos; spine; Rheum f/u 12/2016 CT c-spine 10/22/2014 Essential hypertension with goal blood pressure less than 140/90 (10/06/13) goal <150/90 Generalized osteoarthrosis (08/13/11) LS spine, facet arthopathy Hearing loss (08/13/11) High risk medications (not anticoagulants) long-term use (09/22/06) Remicaid rx for enteritis and spondylitis, Price Olvera (see Aug 2006 note) and Vlad; blood test every 20 wks (every other Remicade dose per Dr. 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 Hypertension Sister , multiple myeloma at age 49. Ovarian cancer Bone cancer Brother Heart disease Hypertension Social History Smoking/Tobacco Use Status: Never Smoking risk assessment performed?: Yes Alcohol Intake: never Drug use: Never Substance use type: does not use Household members: significant other Housing: house Pets and animals: No Current gender identity: female What is your relationship status?: living with partner Panel score (0-1 are the most socially isolated patients): 1 What type of physical activity do you participate in: walking Duration: 15-30 minutes/day Frequency: 5-6 times per week Seatbelt use: always Water heater temp set <120 deg: Yes Working smoke detector in home: Yes Carbon monox detector in home: Yes Do you feel safe at home: Yes Do you feel safe in your relationship?: Yes Exam Narrative Exam Narrative: Constitutional: Alert and oriented x3. Appears stated age. Normal body habitus. Head: Normocephalic, no trauma. Eyes: Pupils PERRLA, Red reflex noted, EOM's intact. Eyelids symmetrical without lesions, discharge, or swelling. ENT: Bilateral TM's WNL, External ear normal to inspection, no mastoid TTP, swelling, or erythema, Nasal turbinates WNL, no nasal discharge. Normal dentition, Posterior pharynx WNL, no exudate. Chest: RRR, Normal S1, S2, distal pulses intact. Resp: Lungs clear to auscultation bilaterally, no wheezes, rales, or rhonchi. Abdomen: Soft, nondistended, mild suprapubic tenderness with palpation and periumbilical tenderness. Musculoskeletal: Normal gait, 5/5 strength to all four extremities. Skin: No suspicious rashes or lesions. Capillary refill less than 2 sec. Neurologic: Cranial nerves II-XII intact. Alert and oriented x 3. DTR's intact. Hematologic/Lymphatic: No ecchymosis, no lymphadenopathy.
--- NOTE | 2020-12-02 20:15 | RT.EKG_ITS ---
APPROVED REPORT Exam: Resting ECG Patient Location: E HR:61 bpm ECG Measurements Heart Rate 61 AXIS VA 166 P 67 QRSd 93 QRS 24 QT 436 T 59 QTc 438 Conclusion Sinus rhythm...normal P axis, V-rate 60- 99
[2020-12-02 20:36] LABS: Abs Immature Grans 0.01 10^3/uL (0.0-0.06); Absolute Basophil Count 0.04 10^3/uL (0.0-0.2); Absolute Eosinophil Count 0.03 10^3/uL (0.0-0.7); Absolute Lymphocyte Count 1.24 10^3/uL (1.2-3.4); Absolute Monocyte Count 0.69 10^3/uL (0.1-0.8); Absolute Neutrophil Count 6.05 10^3/uL (1.2-6.7); Basophils % 0.5; Eosinophils % 0.4; Immature Grans % 0.1; Lymphocytes % 15.4; MCH 31.6 pg (27.0-33.0); MCHC 33.3 % (32.0-36.0); MCV 94.8 fL (80-95); MPV 11.6 fL (8.0-11.0); Monocytes % 8.6; Nucleated RBC 0 %; Platelet Count 136 10^3/uL (130-400); RBC 3.48 10^6/uL (3.93-5.22); RDW 12.5 % (11.7-14.6); RDW-SD 43.4 fL; WBC 8.06 10^3/uL (4.4-10.8)
[2020-12-02 20:46] VITALS: RESP 16
[2020-12-02 21:04] LABS: Troponin I < 0.05 ng/mL (<0.06)
[2020-12-02 21:06] LABS: ALT 37 U/L (14-59); AST 30 U/L (15-37); Albumin 3.6 g/dL (3.4-5.0); Alkaline Phosphatase 67 U/L (46-116); Anion Gap 8.2 mmol/L (3-11); BUN 28 mg/dL (7-18); Bilirubin, Total 0.5 mg/dL (0.2-1.0); CO2 26.8 mmol/L (21.0-32.0); CREATININE 1.1 mg/dL (0.55-1.02); Calcium 8.6 mg/dL (8.5-10.1); Chloride 103 mmol/L (98-107); Estimated GFR 47.55 (mL/min/1.73m2); Glucose 108 mg/dL (74-106); Magnesium 1.9 mg/dL (1.8-2.4); Potassium 4.2 mmol/L (3.5-5.1); Sodium 138 mmol/L (136-145); Total Protein 7.1 g/dL (6.4-8.2)
--- NOTE | 2020-12-02 21:11 | DI.VRAD_ITS ---
PROCEDURE INFORMATION: Exam: XR Complete Acute Abdomen Series Exam date and time: 12/02/2020 8:39 PM Age: 80 years old Clinical indication: Constipation TECHNIQUE: Imaging protocol: XR complete acute abdomen series, including 2 or more views of the abdomen and a single view chest. COMPARISON: CR CHEST 2 VIEWS PA,LAT 04/21/2017 10:23 AM FINDINGS: Lungs: Lungs are symmetrically hyperinflated. No focal consolidation or pulmonary edema. Pleural spaces: No pleural effusions. No pneumothorax. Heart/Mediastinum: No cardiomegaly. Gastrointestinal tract: Nonobstructive bowel gas pattern with gas scattered throughout the small and large bowel. There is moderate colonic stool. No focal dilation or air-fluid levels to suggest obstruction. Intraperitoneal space: No free air. Bones/joints: Scattered degenerative/senescent changes of the osseous structures. Soft tissues: No focal abnormality. IMPRESSION: 1. Nonobstructive bowel gas pattern. 2. Moderate colonic stool. 3. Hyperinflation. Dictated and Authenticated by: Andres Kelly MD. Ordering:MARLON Mora MD
[2020-12-02] MEDS: Normal Saline 1,000 ML 500 ML IV (21:21)
[2020-12-02 21:30] VITALS: BP 128/43; PULSE 61; O2SAT 98
[2020-12-02 21:45] LABS: Bilirubin Negative (Negative); Blood Negative (Negative); Clarity Clear (Clear); Glucose Negative (Negative); Ketones Negative (Negative); Leukocyte Esterase Negative (Negative); Nitrite Negative (Negative); Urobilinogen 0.2 EU/dL (Up TO 0.2)
[2020-12-02 22:00] VITALS: BP 136/46; PULSE 61; RESP 16; O2SAT 99
== END 2020-12-02 22:45 | disposition home or self-care (01) ==
PROVIDERS: Emergency Provider Registered Nurse Emergency; PCP Family Medicine
DX: K59.09 Other constipation (principal); R10.33 Periumbilical pain
CPT/HCPCS: 36415; 51701; 80053; 93005; 96360; 99285; 74022; 81003; 83735; 84484; 85025; 93010; 99284

== ENCOUNTER 2020-12-25 02:52 | Outpatient (RCR) | payer MEDICARE, OTHER, SELFPAY ==
[2020-11-01 00:02] VITALS: BP 132/63; PULSE 47; RESP 16; TEMP 36.6
[2020-12-25] MEDS: diphenhydrAMINE 25 MG CAP PO (09:05)
[2020-12-25] MEDS: Acetaminophen 325 MG TAB 650 MG PO (09:05)
[2020-12-25] MEDS: Normal Saline Flush 10 ML SYR IVP (09:06)
[2020-12-25 09:17] VITALS: BP 125/52; PULSE 58; RESP 16; TEMP 37; O2SAT 99
[2020-12-25 10:00] VITALS: BP 105/59; PULSE 46; RESP 16; TEMP 36.7; O2SAT 98
[2020-12-25 10:15] VITALS: BP 93/51; PULSE 47; RESP 16; TEMP 36.7; O2SAT 99
[2020-12-25 10:30] VITALS: BP 102/54; PULSE 51; RESP 16; TEMP 36.5; O2SAT 97
[2020-12-25 11:00] VITALS: BP 107/59; PULSE 48; RESP 16; TEMP 36.6; O2SAT 99
[2020-12-25 11:30] VITALS: BP 112/58; PULSE 53; RESP 16; TEMP 36.6; O2SAT 98
== END 2020-12-31 23:59 | disposition home or self-care (01) ==
LOC: INF 02:52
PROVIDERS: PCP Family Medicine; Visit Provider Family Medicine
DX: K50.90 Crohn's disease, unspecified, without complications (principal)
CPT/HCPCS: 96365; 96366; 96413; 96415; J1745

== ENCOUNTER 2021-03-07 09:00 | Outpatient (RCR) | payer MEDICARE, OTHER, SELFPAY ==
[2021-01-01 00:01] VITALS: BP 112/58; PULSE 53; RESP 16; TEMP 36.6
[2021-03-07] MEDS: diphenhydrAMINE 25 MG CAP PO (10:48)
[2021-03-07] MEDS: Acetaminophen 325 MG TAB 650 MG PO (10:48)
[2021-03-07] MEDS: Normal Saline Flush 10 ML SYR IVP (10:48)
[2021-03-07 10:52] VITALS: BP 150/68; PULSE 56; RESP 16; TEMP 36.3; O2SAT 97
[2021-03-07 11:12] LABS: HCT 34.9 % (36.0-46.0); HGB 11.4 g/dL (11.2-15.7); MCH 31.7 pg (27.0-33.0); MCHC 32.7 % (32.0-36.0); MCV 96.9 fL (80-95); MPV 11.7 fL (8.0-11.0); Platelet Count 130 10^3/uL (130-400); RDW 12.8 % (11.7-14.6); RDW-SD 45.7 fL; WBC 4.43 10^3/uL (4.4-10.8)
[2021-03-07 11:17] LABS: ALT 36 U/L (14-59); AST 30 U/L (15-37); Albumin 3.7 g/dL (3.4-5.0); Alkaline Phosphatase 69 U/L (46-116); Bilirubin, Direct 0.1 mg/dL (0.0-0.2); Bilirubin, Total 0.5 mg/dL (0.2-1.0); Total Protein 7.4 g/dL (6.4-8.2)
[2021-03-07 11:19] LABS: C-Reactive Protein < 0.05 mg/dL (0.0-0.3)
[2021-03-07 11:34] VITALS: BP 130/64; PULSE 48; RESP 16; TEMP 36.1; O2SAT 98
[2021-03-07 11:50] VITALS: BP 130/66; PULSE 47; RESP 16; TEMP 35.9; O2SAT 97
[2021-03-07 12:06] VITALS: BP 123/64; PULSE 46; RESP 16; TEMP 36.3; O2SAT 99
[2021-03-07 12:20] VITALS: BP 146/68; PULSE 63; RESP 16; TEMP 36.3; O2SAT 98
[2021-03-07 12:50] VITALS: BP 128/61; PULSE 55; RESP 16; TEMP 35.9; O2SAT 99
== END 2021-04-02 23:59 | disposition home or self-care (01) ==
LOC: INF 09:00
PROVIDERS: Family Medicine; PCP Family Medicine; Visit Provider Family Medicine
DX: K50.90 Crohn's disease, unspecified, without complications (principal)
CPT/HCPCS: 36415; 80076; 85027; 96365; 96366; 96413; 96415; 86140; J1745

== ENCOUNTER 2021-05-05 20:51 | Emergency (ER) | payer MEDICARE, OTHER, SELFPAY ==
--- NOTE | 2021-05-05 21:00 | DI.CT_ITS ---
Exam(s) CT HEAD FACIAL WO EXAM: CT HEAD FACIAL WO CLINICAL HISTORY: fell hit head. TECHNIQUE: Imaging Protocol: Axial computed tomography images with coronal and sagittal reformatted images were created and reviewed COMPARISON: CT CT HEAD WO from 10/17/2020 FINDINGS: CT Head: Ventricles and Extra axial spaces: Normal in size and morphology for the patient's age. Hemorrhage: None. Cerebral parenchyma: Mild atrophy consistent with the patient's age. Midline shift: None. Brainstem/Cerebellum: Normal. Calvarium: Normal. Visualized Paranasal sinuses/Mastoids: Clear. Soft Tissues: Left frontal soft tissue swelling and laceration.. CT Face: Facial Bones: No definite fracture is noted in facial bones. Sinuses and Mastoids: Unremarkable. Globes, extraocular muscles, optic nerves and retrobulbar fat: Normal. Upper aerodigestive tract: Normal. Mandible and bilateral temporomandibular joints: No dislocation. Degenerative changes of both TMJ. Soft tissues: Normal. IMPRESSION: 1. No acute intracranial process.Left frontal scalp hematoma. 2. No acute facial fracture. RADIATION DOSE DELIVERED: 1079.56 mGy.cm Total DLP DATA REPOSITORY: All CT scans at this facility are submitted to the National Radiology Data Registry (NRDR) Dose Index Registry (DIR) with the [employer] (ACR). RADIATION OPTIMIZATION: All CT scans at this facility use at least one of these dose optimization te chniques: automated exposure control; mA and/or kV adjustment per patient size (includes targeted exa ms where dose is matched to clinical indication); or iterative reconstruction.
--- NOTE | 2021-05-05 21:46 | ED.GENADUL_ITS ---
Discharge Plan Disposition Patient Disposition: HOME Condition: Good Discharge Details Clinical Impression: Contusion of face, Abrasion of face Primary Care Provider: Cesar Padilla ED Provider: Christopher Velez Home Meds and New Rx's Prescriptions: Continued Remicade 100 mg recon soln IV Q10W RF: 0 aspirin [Adult Low Dose Aspirin] 81 mg tablet,delayed release (DR/EC) 81 mg PO DAILY Qty: 90 RF: 3 Shingrix (PF) 50 mcg/0.5 mL suspension for reconstitution 50 mcg IM ONCE Qty: 1 RF: 1 naproxen sodium [Aleve] 220 mg capsule 220 mg PO PRN RF: 0 atorvastatin 40 mg tablet 40 mg PO QHS Qty: 90 RF: 3 hydrochlorothiazide 12.5 mg tablet 12.5 mg PO QAM Qty: 90 RF: 3 ALOE VERA JUICE 1 bottle PO DAILY RF: 0 multivitamin [Daily Vitamin] 1 EACH tablet 1 ea PO DAILY RF: 0 donepezil 10 mg tablet 10 mg PO DAILY AM RF: 0 diclofenac sodium 1 % gel TOPICAL BID PRNRF: 0 potassium chloride 20 mEq tablet extended release 20 meq PO DAILY Qty: 4 RF: 0 Discharge Instructions Instructions: Head Injury (ED) Additional Instructions: At this time the images are negative of your head and face. There is no evidence of bleed or fracture. Please use ice over your forehead as often as possible. Take Tylenol as needed for pain. If you notice any worsening of your symptoms, or any new symptoms such as vomiting, diarrhea, fever, chills, shortness of breath, chest pain, numbness, weakness, or fainting , please return immediately to the emergency department for reevaluation. Please follow up with your primary care provider as soon as possible for reassessment and reevaluation. As always, it was a pleasure participating in your medical care today. Referrals: Cesar Padilla [Primary Care Provider] - Medical Decision Making 81-year-old female with a past medical history of obstructive sleep apnea, hypertension, takes a daily baby aspirin, presents today for evaluation of fall. Patient states that she was walking outside on uneven ground and her feet caught on the uneven ground causing her to fall forward and hit her left brow. She denies any loss of consciousness, she recalls the entire event. She denies any trauma to her arms chest legs back or neck. She denies any neck pain. Is been 7 years since the patient's tetanus was last updated. No other complaints at this time. No other modifying factors. She denies any vision changes, pain in the eye, headache. She does admit to tenderness over the left frontal aspect of her skull where she hit. She does have a notable hematoma there. Physical exam demonstrates notable hematoma of the left frontal skull, as well as a small excoriation/scrape over the left brow. No active bleeding, no large laceration requiring suturing. Because of the patient's age and mechanism we will get a CT scan of the head and face to evaluate for any bleed or other acute trauma. We will update the patient's tetanus as it is been about 7 years since her last tetanus shot. Will monitor closely and reassess. [address] scan of the head and face negative for acute process in regards to intracranial bleed, fracture or other abnormality. Patient small abrasion/laceration over the left brow is glued with no complication. Patient feeling well, repeat neurologic exam normal. Patient will be discharged home with the care of her partner. I have extensively reviewed the treatment plan and discharge instructions with the patient. I have addressed all patient concerns at this time. The patient was made aware of what symptoms to monitor for that would warrant a return to the emergency department. Discussed the plan with the patient, they demonstrate verbal understanding and agreement with our assessment and plan at this time. The documentation in this chart was dictated using [employer] dictation software. Please excuse any dictation errors. FINDINGS: Orbital cavity: Orbits are normal. Globes are unremarkable. Bones/joints: No acute fracture. 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 Paranasal sinuses: Normal. No air-fluid levels. Left apollo bullosa. Soft tissues: There is soft tissue swelling with small laceration of the left forehead.. IMPRESSION: 1. No evidence for a facial bone fracture. 2. Soft tissue swelling with small laceration of the left forehead. 3. Advanced bilateral TMJ arthropathy. Thank you for allowing us to participate in the care of your patient. Dictated and Authenticated by: Driss Crawford MD 05/05/2021 10:13 PM Eastern Time ([place] & [place]) FINDINGS: Brain: There is age related volume loss. Mccray-white differention is maintained. No hemorrhage. No mass effect. There is low attenuation in the periventricular white matter suggestive of chronic small vessel ischemic changes. Cerebral ventricles: No ventriculomegaly. Paranasal sinuses: Visualized sinuses are unremarkable. No fluid levels. Mastoid air cells: Visualized mastoid air cells are well aerated. Bones/joints: Unremarkable. No acute fracture. Soft tissues: There is soft tissue swelling/hematoma with laceration of the left forehead and frontal scalp. IMPRESSION: 1. No evidence for acute intracranial abnormality. 2. Soft tissue swelling/hematoma with laceration of the left forehead and frontal scalp Thank you for allowing us to participate in the care of your patient. Dictated and Authenticated by: Driss Crawford MD 05/05/2021 10:15 PM Eastern Time ([place] & [place]) HPI General Date/Time Provider Initiated Documentation: 05/05/21 21:03 . HPI Narrative: 81-year-old female with a past medical history of obstructive sleep apnea, hypertension, takes a daily baby aspirin, presents today for evaluation of fall. Patient states that she was walking outside on uneven ground and her feet caught on the uneven ground causing her to fall forward and hit her left brow. She denies any loss of consciousness, she recalls the entire event. She denies any trauma to her arms chest legs back or neck. She denies any neck pain. Is been 7 years since the patient's tetanus was last updated. No other complaints at this time. No other modifying factors. She denies any vision changes, pain in the eye, headache. She does admit to tenderness over the left frontal aspect of her skull where she hit. She does have a notable hematoma there. Related Data Home Medications Medication Instructions Recorded Confirmed Aloe Vera Juice 1 bottle PO DAILY 11/30/12 04/28/20 multivitamin [Daily Vitamin] 1 ea PO DAILY 11/30/12 05/05/21 naproxen sodium 220 mg capsule 220 mg PO PRN cap 11/01/18 05/05/21 infliximab 100 mg intravenous IV Q10W each 11/24/18 07/11/19 solution aspirin 81 mg tablet,delayed 81 mg PO DAILY #90 tab 08/15/19 05/05/21 release varicella-zoster glycoE [id number] 50 mcg IM ONCE #1 each 08/15/19 05/05/21 adj(PF) 50 mcg/0.5 mL IM susp, kit atorvastatin 40 mg tablet 40 mg PO QHS #90 tab-cap 10/13/19 05/05/21 hydrochlorothiazide 12.5 mg tablet 12.5 mg PO QAM #90 tab-cap 10/13/19 05/05/21 diclofenac sodium TOPICAL BID PRN 04/28/20 donepezil 10 mg PO DAILY AM 04/28/20 05/05/21 potassium chloride 20 meq PO DAILY #4 tab 04/28/20 05/05/21 Previous Rx's Medication Instructions Recorded aspirin 81 mg tablet,delayed 81 mg PO DAILY #90 tab 08/15/19 release varicella-zoster glycoE [id number] 50 mcg IM ONCE #1 each 08/15/19 adj(PF) 50 mcg/0.5 mL IM susp, kit atorvastatin 40 mg tablet 40 mg PO QHS #90 tab-cap 10/13/19 hydrochlorothiazide 12.5 mg tablet 12.5 mg PO QAM #90 tab-cap 10/13/19 potassium chloride 20 meq PO DAILY #4 tab 04/28/20 Allergies Allergy/AdvReac Type Severity Reaction Status Date / Time Sulfa (Sulfonamide Allergy Intermediate hives Verified 05/05/21 21:56 Antibiotics) codeine Allergy Unknown rash Verified 05/05/21 21:56 mesalamine [From Apriso] AdvReac Intermediate Diarrhea Verified 05/05/21 21:56 General ALEX: 3 Review of Systems All systems reviewed & are unremarkable except as noted in HPI and below PFSH Medical History (Updated 05/05/21 @ 22:14 by Christopher Velez DO) Ankylosing spondylitis (08/03/1968) dx [facility] [place] 08/08/83 Dr May Santos; spine; Rheum f/u 12/2016 CT c-spine 10/22/2014 Essential hypertension with goal blood pressure less than 140/90 (10/06/13) goal <150/90 Generalized osteoarthrosis (08/13/11) LS spine, facet arthopathy Hearing loss (08/13/11) High risk medications (not anticoagulants) long-term use (09/22/06) Remicaid rx for enteritis and spondylitis, Price Olvera (see Aug 2006 note) and Vlad; blood test every 20 wks (every other Remicade dose per Dr. Chu) (CBC, LFT, CRP) Hypercholesterolemia (08/13/11) LDL jumped from <161 to >190 2006 (coincident with starting Remicade); risk 12% 12/2013 vs 23.4% by current Mild obstructive sleep apnea Sleep Medicine: 05/30/2019 diagnosed & 07/07/2019--CPAP RX Osteoporosis, unspecified t = -3.0 Fem neck 2001; repeat 09/2008 improved: worst T= -2.3 spine and fem neck Radicular pain of left lower extremity (08/22/16) pain into L buttock and L ant thigh; facet arthropathy and neruo impingement per Rheum 12/2016 Regional enteritis of unspecified site (08/03/92) dx 93; asacol since ; remacaid since ; [place] [facility] [place] active dis 03/2019: Colonoscopy only microscopic colitis; no dysplasia; next colonoscopy 2021 (Giovany Chu) Surgical History Appendectomy Extraction of cataract (09/04/16) L eye; and later R eye Dr Reardon Extraction of cataract (09/16/16) L eye; and later R eye Dr Reardon S/P WENDY-BSO 12/31/81 Family History Mother , pancreatic ca at age 90. Hypertension Sister , multiple myeloma at age 49. Ovarian cancer Bone cancer Brother Heart disease Hypertension Social History Smoking/Tobacco Use Status: Never Smoking risk assessment performed?: Yes Alcohol Intake: never Drug use: Never Substance use type: does not use Household members: significant other Housing: house Pets and animals: No Current gender identity: female What is your relationship status?: living with partner Panel score (0-1 are the most socially isolated patients): 1 What type of physical activity do you participate in: walking Duration: 15-30 minutes/day Frequency: 5-6 times per week Seatbelt use: always Water heater temp set <120 deg: Yes Working smoke detector in home: Yes Carbon monox detector in home: Yes Do you feel safe at home: Yes Do you feel safe in your relationship?: Yes Exam Narrative Exam Narrative: 1.Const: Well-nourished, Well-developed, appearing stated age 2.Eyes: PERRL, no conjunctival injection, and symmetrical lids. 3.ENT: Patient has a notable bruise over her left brow, small abrasion that is no longer bleeding. Notable hematoma just superior to this over the left frontal skull. There is no evidence of raccoon eyes, sanchez sign, CSF rhinorrhea, mastoid tenderness, cranial crepitus, hemotympanum, exophthalmos, or hyphema. Patient demonstrates intact dentition with no signs of tooth avulsion or fracture, no signs of jaw deformity, no evidence of a LeFort's fracture, with an intact palate, nose and orbital region. There is no evidence of a nasal septal hematoma. No proptosis. Jaw closes symmetrically. Airway is clear. 4.CVS: +S1/S2, No murmurs or gallops. Peripheral pulses 2+ and equal in all extremities. Brisk capillary refill in all extremities. 5.RESP: Unlabored respiratory effort. Clear to auscultation bilaterally. No wheezes rales or rhonchi 6.GI: Soft, Nontender/Nondistended, No hepatosplenomegaly. No guarding or rebound. 7.MSK: Normocephalic/Atraumatic, Extremities w/o deformity or ttp No cyanosis or clubbing, Normal movement of all extremities, no midline cervical thoracic or lumbar spine tenderness. 8.Skin: Warm, Dry. No rashes or lesions. 9.Neuro: tax analyst II-XII grossly intact. Sensation grossly intact, no focal neurologic deficits. No dysdiadochokinesia or dysmetria. No ataxia. Good balance, good strength in all extremities. 10.Psych: (AAO) x3. Appropriate mood and affect
--- NOTE | 2021-05-05 22:14 | DI.VRAD_ITS ---
PROCEDURE INFORMATION: Exam: CT Maxillofacial Without Contrast Exam date and time: 05/05/2021 9:13 PM Age: 81 years old Clinical indication: Injury or trauma; Eyelid; Upper left; Not specified; Injury date: 05/05/21; Injury details: Fall, no loc, laceration above left eye TECHNIQUE: Imaging protocol: Computed tomography images of the face without contrast. Radiation optimization: All CT scans at this facility use at least one of these dose optimization techniques: automated exposure control; mA and/or kV adjustment per patient size (includes targeted exams where dose is matched to clinical indication); or iterative reconstruction. COMPARISON: MR BRAIN WO 10/30/2020 3:16 PM FINDINGS: Orbital cavity: Orbits are normal. Globes are unremarkable. Bones/joints: No acute fracture. 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 Paranasal sinuses: Normal. No air-fluid levels. Left apollo bullosa. Soft tissues: There is soft tissue swelling with small laceration of the left forehead.. IMPRESSION: 1. No evidence for a facial bone fracture. 2. Soft tissue swelling with small laceration of the left forehead. 3. Advanced bilateral TMJ arthropathy. Dictated and Authenticated by: Driss Crawford MD. Ordering:NISH White MD
--- NOTE | 2021-05-05 22:16 | DI.VRAD_ITS ---
PROCEDURE INFORMATION: Exam: CT Head Without Contrast Exam date and time: 05/05/2021 9:13 PM Age: 81 years old Clinical indication: Injury or trauma; Blunt trauma (contusions or hematomas); Without loss of consciousness; Injury date: 05/05/21; Injury details: Fall, hit head, no loc TECHNIQUE: Imaging protocol: Computed tomography of the head without contrast. Radiation optimization: All CT scans at this facility use at least one of these dose optimization techniques: automated exposure control; mA and/or kV adjustment per patient size (includes targeted exams where dose is matched to clinical indication); or iterative reconstruction. COMPARISON: MR BRAIN WO 10/30/2020 3:16 PM FINDINGS: Brain: There is age related volume loss. Mccray-white differention is maintained. No hemorrhage. No mass effect. There is low attenuation in the periventricular white matter suggestive of chronic small vessel ischemic changes. Cerebral ventricles: No ventriculomegaly. Paranasal sinuses: Visualized sinuses are unremarkable. No fluid levels. Mastoid air cells: Visualized mastoid air cells are well aerated. Bones/joints: Unremarkable. No acute fracture. Soft tissues: There is soft tissue swelling/hematoma with laceration of the left forehead and frontal scalp. IMPRESSION: 1. No evidence for acute intracranial abnormality. 2. Soft tissue swelling/hematoma with laceration of the left forehead and frontal scalp. Dictated and Authenticated by: Driss Crawford MD. Ordering:NISH White MD
== END 2021-05-05 22:20 | disposition home or self-care (01) ==
PROVIDERS: Emergency Provider Student in an Organized Health Care Education/Training Program; PCP Family Medicine
DX: S00.212A Abrasion of left eyelid and periocular area, initial encounter (principal); S00.83XA Contusion of other part of head, initial encounter; W01.0XXA Fall on same level from slipping, tripping and stumbling without subsequent striking against object, initial encounter
CPT/HCPCS: 90471; 99284; 70450; 70486; 99283

== ENCOUNTER 2021-05-16 02:16 | Outpatient (RCR) | payer MEDICARE, OTHER, SELFPAY ==
[2021-04-03 00:15] VITALS: BP 128/61; PULSE 55; RESP 16; TEMP 35.9
[2021-05-16] VITALS (7 sets, daily range): BP systolic 132–153; BP diastolic 58–88; PULSE 51–65; RESP 18–20; TEMP 36.6–37; O2SAT 98–100
[2021-05-16] MEDS: diphenhydrAMINE 25 MG CAP PO (10:25)
[2021-05-16] MEDS: Normal Saline Flush 10 ML SYR IVP (10:26)
[2021-05-16] MEDS: Acetaminophen 325 MG TAB 650 MG PO (10:26)
== END 2021-06-02 23:59 | disposition home or self-care (01) ==
LOC: INF 02:16
PROVIDERS: PCP Family Medicine; Visit Provider Family Medicine
DX: K50.90 Crohn's disease, unspecified, without complications (principal)
CPT/HCPCS: 96365; 96366; 96413; 96415; J1745

== ENCOUNTER 2021-07-19 20:31 | Outpatient (REF) | payer MEDICARE, OTHER, SELFPAY ==
[2021-07-19 18:43] LABS: Absolute Basophil Count 0.04 10^3/uL (0.0-0.2); Absolute Eosinophil Count 0.04 10^3/uL (0.0-0.7); Absolute Lymphocyte Count 1.01 10^3/uL (1.2-3.4); Absolute Monocyte Count 0.44 10^3/uL (0.1-0.8); Absolute Neutrophil Count 1.82 10^3/uL (1.2-6.7); Basophils % 1.2; Eosinophils % 1.2; HCT 36.3 % (36.0-46.0); HGB 11.6 g/dL (11.2-15.7); Lymphocytes % 30.1; MCH 30.6 pg (27.0-33.0); MCV 95.8 fL (80-95); Monocytes % 13.1; Neutrophils % 54.4; Nucleated RBC 0 %; Platelet Count 165 10^3/uL (130-400); RBC 3.79 10^6/uL (3.93-5.22); RDW-SD 46.2 fL; WBC 3.35 10^3/uL (4.4-10.8)
[2021-07-19 19:05] LABS: C-Reactive Protein 1.19 mg/dL (0.0-0.3)
== END 2021-07-19 20:32 | disposition home or self-care (01) ==
LOC: NCHCN 20:31
PROVIDERS: PCP Family Medicine; Visit Provider Family Medicine
DX: K50.90 Crohn's disease, unspecified, without complications (principal); L52 Erythema nodosum
CPT/HCPCS: 85025; 86140

== ENCOUNTER 2021-07-23 10:00 | Outpatient (RCR) | payer MEDICARE, OTHER, SELFPAY ==
[2021-06-03 00:17] VITALS: BP 132/58; PULSE 60; RESP 19; TEMP 36.9
[2021-07-23] VITALS (7 sets, daily range): BP systolic 103–127; BP diastolic 60–71; PULSE 50–59; RESP 16–17; TEMP 35.8–36.6; O2SAT 98–99
[2021-07-23] MEDS: diphenhydrAMINE 25 MG CAP PO (10:17)
[2021-07-23] MEDS: Acetaminophen 325 MG TAB 650 MG PO (10:18)
[2021-07-23 10:44] LABS: HCT 32.8 % (36.0-46.0); HGB 10.8 g/dL (11.2-15.7); MCH 31.1 pg (27.0-33.0); MCHC 32.9 % (32.0-36.0); MCV 94.5 fL (80-95); MPV 11.2 fL (8.0-11.0); Platelet Count 167 10^3/uL (130-400); RBC 3.47 10^6/uL (3.93-5.22); RDW 12.9 % (11.7-14.6); RDW-SD 45.1 fL; WBC 4.17 10^3/uL (4.4-10.8)
[2021-07-23 10:56] LABS: ALT 93 U/L (14-59); AST 78 U/L (15-37); Albumin 3.4 g/dL (3.4-5.0); Alkaline Phosphatase 144 U/L (46-116); Bilirubin, Direct 0.2 mg/dL (0.0-0.2); Bilirubin, Total 0.5 mg/dL (0.2-1.0); C-Reactive Protein 0.63 mg/dL (0.0-0.3); Total Protein 7.6 g/dL (6.4-8.2)
[2021-07-23] MEDS: Normal Saline Flush 10 ML SYR IVP (13:11)
== END 2021-08-02 23:59 | disposition home or self-care (01) ==
LOC: INF 10:00
PROVIDERS: Family Medicine; PCP Family Medicine; Visit Provider Family Medicine
DX: K50.90 Crohn's disease, unspecified, without complications (principal)
CPT/HCPCS: 36415; 80076; 85027; 96365; 96366; 96413; 96415; 86140; J1745

== ENCOUNTER 2021-08-16 02:32 | Outpatient (CLI) | payer MEDICARE, OTHER, SELFPAY ==
--- NOTE | 2021-08-16 | DI.US_ITS ---
APPROVED REPORT EXAM: Comprehensive 2D, Doppler, and color-flow Echocardiogram Patient Location: Out-Patient Cosmetic Sales: Gloria Davenport RDCS (AE) Indications: Lightheaded, HTN Other Information Study Quality: Adequate Conclusion Normal left ventricular wall thickness and chamber size. Estimated ejection fraction is 60%. Wall m otion is normal Normal right ventricular size and systolic function Both atria are normal in size Aortic valve is sclerotic and trileaflet. There is mild to moderate aortic regurgitation Normal tricuspid valve with trace to mild regurgitation. Estimated right ventricular systolic pressu re is normal Normal mitral valve with mild regurgitation Dilated ascending aorta measuring 3.55 cm Wall motion Left Ventricle The left ventricle is normal size. The left ventricular systolic function is normal. The left ventric ular ejection fraction is within the normal range. There is normal left ventricular wall thickness. T here is normal LV segmental wall motion. There is no ventricular septal defect visualized. LVEF is 58 %. Right Ventricle The right ventricle is normal size. The right ventricular systolic function is normal. The RVSP is 20 .8 mmHg. Atria The left atrium size is normal. The right atrium size is normal. The interatrial septum is intact wit h no evidence for an atrial septal defect. Aortic Valve The Aortic valve is sclerotic. There is no aortic valvular stenosis. Mild to moderate aortic regurgit ation. Mitral Valve The mitral valve is normal in structure. No evidence of mitral valve stenosis. Mild mitral regurgitat ion. Tricuspid Valve The tricuspid valve is normal in structure. There is no tricuspid valve stenosis. Trace to mild tricu spid regurgitation. Pulmonic Valve The pulmonary valve is normal in structure. There is no pulmonic valvular stenosis. Trace pulmonic re gurgitation. Great Vessels The aortic root is normal in size. The ascending aorta is moderately dilated.3.55 cm IVC is normal in size and collapses >50% with inspiration. Pericardium There is no pericardial effusion. 2D Dimensions IVSD d PLAX 0.84 cm F: 0.6-1.0 LV Vol A2C d MOD 94.1 mL LVPW d PLAX 0.87 cm F: 0.6 - 1.0 LV Vol A4C d MOD 88.7 mL LVID d PLAX 4.81 cm F: 3.8 - 5.2 LA vol/ BSA A2C s A-L 28.7 mL/m2 LVDs 3.35 cm F: 2.2 - 3.5 LA vol/ BSA A4C s A-L 27.4 mL/m2 Ao Root d 2.86 cm F: 2.7 - 3.3 LA Vol/ BSA Biplane s A-L 29.3 mL/m2 RA Area A4C 7.66 cm2 LA Area A4C s MOD 15.24 cm2 RA Vol/ BSA A4C s A-L 9.2 mL/m2 LA Area A2C s MOD 16.35 cm2 Ao Asc Diam d 3.55 cm F: 2.3 - 3.1 LV EF A4C MOD 57.9 % LV EF Teichholz 57.2 % LV EF A2C MOD 57.9 % LVEF (Blackburn's) 56.59 % F: 54 - 74 LV EF Biplane MOD 56.6 % LV Volume 74.52 mL F: 46 - 106 SV 52.25 mL LV Volume Index 46.00 mL/m2 F: 29 - 61 SV Index 32.09 mL/m2 LV Vol Biplane MOD 92.3 mL FS 30.05 % M-Mode TAPSE 2.01 cm (M/F) >1.7 LV Diastology MV E' medial 0.082 (>0.07 m/s) E/A Ratio 0.8 LV E/e MED 9.55 (<14) MV E Vmax 0.78 (0.4-1.3 m/s) MV E' lateral 0.046 (>0.1 m/s) MV A Vmax 1.00 (0.4-1.3 m/s) LV E/e LAT 16.80 (<14) MV E/A Ratio 0.78 MV E/E' medial 9.55 MV E/E' lateral 16.84 Aortic Valve LVOT Area 2.56 cm2 AoV Area Vmax 1.79 cm2 LVOT Vmax 1.02 m/s AoV Area/ BSA (Vmax) 1.10 cm2/m2 LVOT Mean Shamar. 0.65 m/s YESSI Mean Shamar. 1.81 cm2 LVOT Peak Grad 4.2 mmHg YESSI Mean Shamar. Index 1.11 cm2/m2 LVOT Mean Grad 2.0 mmHg AR DT 1783 msec LVOT VTI 0.260 m AR PHT 517 msec LVOT Diam s 1.80 cm AoV Vmax 1.47 m/s Velocity Ratio 0.69 AoV Mean Shamar. 0.91 m/s AoV Peak Grad 8.6 mmHg LVOT SV 66.46 mL AoV Mean Grad 4.0 mmHg AoV VTI 0.326 m AoV Area VTI 2.04 cm2 AoV Area/ BSA (VTI) 1.25 cm/m2 Mitral Valve MV DT 256 (160-240 msec) MR PISA Radius 0.33 cm MV PHT 74 msec MR Aliasing Velocity 0.35 m/s MV Area PHT 2.96 cm2 MR PISA 0.68 cm2 MV VTI 0.292 m MV Area VTI 2.28 (4.0-6.0 cm2) Pulmonary Valve PV Vmax 0.91 (0.5-1.5 m/s) RVOT Peak Gr. 1.63 mmHg PV Peak Grad 3.3 mmHg RVOT Mean Gr. 0.80 mmHg PV Mean Grad 1.8 mmHg RVOT VTI 0.158 m PV VTI 0.198 m RVOT Vmax 0.64 m/s Tricuspid Valve TR Peak Grad 17.8 mmHg TR Vmax 2.11 m/s RA Pressure 3.00 mmHg RVSP (TR) 20.8 mmHg
== END 2021-08-16 02:52 ==
PROVIDERS: PCP Family Medicine; Visit Provider Family Medicine
DX: I10 Essential (primary) hypertension (principal); R42 Dizziness and giddiness; I08.3 Combined rheumatic disorders of mitral, aortic and tricuspid valves
CPT/HCPCS: 93306

== ENCOUNTER 2021-09-20 16:26 | Outpatient (REF) | payer MEDICARE, OTHER, SELFPAY ==
[2021-09-20 15:47] LABS: HCT 35.4 % (36.0-46.0); HGB 11.5 g/dL (11.2-15.7); MCH 31.1 pg (27.0-33.0); MCHC 32.5 % (32.0-36.0); MCV 95.7 fL (80-95); MPV 11.5 fL (8.0-11.0); Platelet Count 174 10^3/uL (130-400); RDW 13.4 % (11.7-14.6); RDW-SD 47.4 fL; WBC 4.19 10^3/uL (4.4-10.8)
[2021-09-20 16:03] LABS: Iron 104 ug/dL (50-170); Total Iron Binding Capacity 218 ug/dL (250-450); Transferrin Sat 48 % (15-50)
[2021-09-20 16:31] LABS: ALT 67 U/L (14-59); AST 52 U/L (15-37); Albumin 3.8 g/dL (3.4-5.0); Alkaline Phosphatase 141 U/L (46-116); Anion Gap 7.6 mmol/L (3-11); BUN 26 mg/dL (7-18); Bilirubin, Total 0.6 mg/dL (0.2-1.0); CO2 29.4 mmol/L (21.0-32.0); CREATININE 1.1 mg/dL (0.55-1.02); Calcium 8.9 mg/dL (8.5-10.1); Chloride 104 mmol/L (98-107); Estimated GFR 47.43 (mL/min/1.73m2); Glucose 100 mg/dL (74-106); Potassium 4.1 mmol/L (3.5-5.1); Sodium 141 mmol/L (136-145); Total Protein 8.2 g/dL (6.4-8.2); Vitamin B12 708 pg/mL (193-986)
[2021-09-20 16:33] LABS: Folate > 20.0 ng/mL (8.6-20.0)
[2021-09-20 16:43] LABS: C-Reactive Protein 0.15 mg/dL (0.0-0.3)
[2021-09-23 11:07] LABS: Hepatitis B Surface Ag Negative (Negative)
[2021-09-23 11:18] LABS: Hepatitis C Ab w Rflx HCV PCR Negative (Negative)
== END 2021-09-20 16:27 | disposition home or self-care (01) ==
LOC: NCHCN 16:26
PROVIDERS: PCP Family Medicine; Visit Provider Family Medicine
DX: D64.9 Anemia, unspecified (principal); L52 Erythema nodosum; R74.8 Abnormal levels of other serum enzymes; N18.30 Chronic kidney disease, stage 3 unspecified; Z11.59 Encounter for screening for other viral diseases
CPT/HCPCS: 80053; 85027; 86803; 87340; 82607; 82746; 83540; 83550; 86140

== ENCOUNTER 2021-10-01 01:46 | Outpatient (RCR) | payer MEDICARE, OTHER, SELFPAY ==
[2021-08-03 00:12] VITALS: BP 127/71; PULSE 59; RESP 17; TEMP 36.4
[2021-10-01] MEDS: diphenhydrAMINE 25 MG CAP PO (10:05)
[2021-10-01] MEDS: Acetaminophen 325 MG TAB 650 MG PO (10:06)
[2021-10-01] MEDS: Normal Saline Flush 10 ML SYR IVP (10:06)
[2021-10-01 10:30] VITALS: BP 124/74; PULSE 59; RESP 16; TEMP 36.5; O2SAT 97
[2021-10-01 10:45] VITALS: BP 124/74; PULSE 56; RESP 18; TEMP 36.4; O2SAT 97
[2021-10-01 11:00] VITALS: BP 126/59; PULSE 52; RESP 16; TEMP 36.3; O2SAT 98
[2021-10-01 11:15] VITALS: BP 137/70; PULSE 53; RESP 16; TEMP 36.6; O2SAT 97
[2021-10-01 11:45] VITALS: BP 136/63; PULSE 53; RESP 16; TEMP 36.6; O2SAT 98
[2021-10-01 12:20] VITALS: BP 124/59; PULSE 53; RESP 17; TEMP 35.7; O2SAT 100
== END 2021-10-31 23:59 | disposition home or self-care (01) ==
LOC: INF 01:46
PROVIDERS: PCP Family Medicine; Visit Provider Family Medicine
DX: K50.90 Crohn's disease, unspecified, without complications (principal)
CPT/HCPCS: 96365; 96366; 96413; 96415; J1745

== ENCOUNTER 2021-12-10 00:56 | Outpatient (RCR) | payer MEDICARE, OTHER, SELFPAY ==
[2021-11-01] VITALS: BP 124/59; PULSE 53; RESP 17; TEMP 35.7
--- OUTSIDE RECORDS SUMMARY | 2021-12-10 00:57 | XMS_ITS ---
:1940 Author Care Team Providers Name Role Phone JAYSHREE TORRES MD Neurologist [phone] [facility] Primary Care Provider [phone] ARSH PORTILLO MD ([facility]) Primary Care Provider [phone] Allergies Code Code System Name Reaction Severity Status Onset 2670 RxNorm Codeine ? ? Active ? 58878 RxNorm Mesalamine ? ? Active ? Sulfa ? ? Active ? (Sulfonamide Antibiotics) Medications Name Status Start Date Stop Date ? ? aloe vera Active ? Not available aspirin 81 mg tablet,delayed release Active ? Not available Take 1 tablet every day by oral route. atorvastatin 40 mg tablet Active ? Not av ailable Take 1 tablet every day by oral route. calcium carb and citrate-vitD3 Active ? N ot available 1 BID coenzyme Q10 100 mg tablet Completed ? 04/21 Take by oral route. Glucosamine Complex-MSM Active ? Not avai lable 2 tab daily hydrochlorothiazide 12.5 mg capsule Active ? Not available Take 1 capsule every day by oral route. infliximab 100 mg intravenous solution Active ? Not available Inject by intravenous route. multivitamin Active ? Not available daily naproxen sodium 220 mg capsule Completed ? 0 04/21/2019 Take by oral route. turmeric Active ? Not available zolpidem 5 mg tablet Completed ? 09/15/2019 take 1 PO night of sleep study PRN Problems Name Status Onset Date Source ? Hypercholesterolemia Active 04/18/2019 ? Hearing Loss Active 04/18/2019 ? Essential Hypertension Active 04/18/2019 ? Crohn's Disease Active 04/18/2019 ? Enteritis of Small Intestine Active 04/18/2019 ? Osteoarthritis Active 04/18/2019 ? Ankylosing Spondylitis Active 04/18/2019 ? Radicular Pain Active 04/18/2019 ? Amnesia Active 04/18/2019 ? Abnormal Weight Loss Active 04/18/2019 ? Fatigue Active 04/21/2019 ? Obstructive Sleep Apnea Syndrome Active ? ? Procedures Date Name Performed by ? 04/21/2019 Polysomnogram Information not avai lable Results Lab Results None recorded. Past Encounters None recorded. Social History Tobacco Smoking Status Never Smoker Vaccine List None recorded. Plan of Care Reminders Provider Appointments None ? ? recorded. Lab None ? ? recorded. Referral None ? ? recorded. Procedures None ? ? recorded. Surgeries None ? ? recorded. Imaging None ? ? recorded. Vitals 01/19/2020 01:15PM Office 30 Height Weight BMI Blood Pressure 157.48 cm 58.97 kg 23.8 kg/m2 120/60 mm[Hg] 09/15/2019 01:15PM Office 30 Height Weight BMI Blood Pressure 157.48 cm 58.88 kg 23.7 kg/m2 118/70 mm[Hg] 07/07/2019 02:15PM Office 30 Height Weight BMI Blood Pressure 157.48 cm 58.92 kg 23.8 kg/m2 120/58 mm[Hg] 04/21/2019 02:15PM New Patient 45 Height Weight BMI Blood Pressure 157.48 cm 59.6 kg 24 kg/m2 132/68 mm[Hg]
[2021-12-10] MEDS: diphenhydrAMINE 25 MG CAP PO (09:55)
[2021-12-10] MEDS: Acetaminophen 325 MG TAB 650 MG PO (09:55)
[2021-12-10 10:08] LABS: HCT 37.3 % (36.0-46.0); HGB 11.9 g/dL (11.2-15.7); MCH 31.2 pg (27.0-33.0); MCHC 31.9 % (32.0-36.0); MCV 98 fL (80-95); Platelet Count 158 10^3/uL (130-400); RBC 3.82 10^6/uL (3.93-5.22); RDW 13.3 % (11.7-14.6); RDW-SD 47.8 fL; WBC 4.46 10^3/uL (4.4-10.8)
[2021-12-10 10:15] VITALS: BP 137/81; PULSE 58; RESP 16; TEMP 36.9; O2SAT 99
[2021-12-10] MEDS: Normal Saline Flush 10 ML SYR IVP (10:17)
[2021-12-10 10:22] LABS: ALT 39 U/L (14-59); AST 37 U/L (15-37); Albumin 3.5 g/dL (3.4-5.0); Alkaline Phosphatase 88 U/L (46-116); Bilirubin, Direct 0.2 mg/dL (0.0-0.2); Bilirubin, Total 0.6 mg/dL (0.2-1.0); Total Protein 8.1 g/dL (6.4-8.2)
[2021-12-10 10:23] LABS: C-Reactive Protein < 0.05 mg/dL (0.0-0.3)
[2021-12-10 10:35] VITALS: BP 129/66; PULSE 58; RESP 17; TEMP 36.3; O2SAT 99
[2021-12-10 11:00] VITALS: BP 141/75; PULSE 55; RESP 16; TEMP 36.4; O2SAT 99
[2021-12-10 11:16] VITALS: BP 140/69; PULSE 62; RESP 17; TEMP 36.4; O2SAT 99
[2021-12-10 11:45] VITALS: BP 109/60; PULSE 63; RESP 16; TEMP 36.4; O2SAT 98
[2021-12-10 12:13] VITALS: BP 148/78; PULSE 59; RESP 16; TEMP 36.6; O2SAT 96
== END 2021-12-31 23:59 | disposition home or self-care (01) ==
LOC: INF 00:56
PROVIDERS: Family Medicine; PCP Family Medicine; Visit Provider Family Medicine
DX: K50.90 Crohn's disease, unspecified, without complications (principal)
CPT/HCPCS: 36415; 80076; 85027; 96365; 96366; 96413; 96415; 86140; J1745

== ENCOUNTER 2022-02-18 01:17 | Outpatient (RCR) | payer MEDICARE, OTHER, SELFPAY ==
[2022-01-01 00:01] VITALS: BP 148/78; PULSE 59; RESP 16; TEMP 36.6
[2022-02-18] MEDS: Acetaminophen 325 MG TAB 650 MG PO (09:40)
[2022-02-18] MEDS: diphenhydrAMINE 25 MG CAP PO (09:40)
[2022-02-18] MEDS: Normal Saline Flush 10 ML SYR IVP (09:40)
[2022-02-18 10:20] VITALS: BP 132/74; PULSE 57; RESP 16; TEMP 36.2; O2SAT 98
[2022-02-18 10:40] VITALS: BP 121/45; PULSE 54; RESP 16; TEMP 36.4; O2SAT 98
[2022-02-18 10:55] VITALS: BP 117/49; PULSE 58; RESP 16; TEMP 36.6; O2SAT 98
[2022-02-18 11:10] VITALS: BP 139/51; PULSE 53; RESP 16; TEMP 36.3; O2SAT 97
[2022-02-18 11:40] VITALS: BP 151/56; PULSE 54; RESP 16; TEMP 35.3; O2SAT 97
[2022-02-18 12:10] VITALS: BP 147/51; PULSE 56; RESP 16; TEMP 36.4; O2SAT 98
== END 2022-03-02 23:59 | disposition home or self-care (01) ==
LOC: INF 01:17
PROVIDERS: PCP Family Medicine; Visit Provider Family Medicine
DX: K50.90 Crohn's disease, unspecified, without complications (principal)
CPT/HCPCS: 96365; 96366; J1745

== ENCOUNTER 2022-04-29 02:44 | Outpatient (RCR) | payer MEDICARE, OTHER, SELFPAY ==
[2022-03-03 00:13] VITALS: BP 147/51; PULSE 56; RESP 16; TEMP 36.4
[2022-04-29] VITALS (7 sets, daily range): BP systolic 105–140; BP diastolic 59–77; PULSE 57–72; RESP 16–17; TEMP 35.8–36.7; O2SAT 96–98
[2022-04-29] MEDS: diphenhydrAMINE 25 MG CAP PO (10:07)
[2022-04-29] MEDS: Normal Saline Flush 10 ML SYR IVP (10:07)
[2022-04-29] MEDS: Acetaminophen 325 MG TAB 650 MG PO (10:07)
[2022-04-29 10:36] LABS: HCT 38.4 % (36.0-46.0); HGB 12.7 g/dL (11.2-15.7); MCH 31.7 pg (27.0-33.0); MCHC 33.1 % (32.0-36.0); MCV 96 fL (80-95); MPV 11.5 fL (8.0-11.0); Platelet Count 151 10^3/uL (130-400); RBC 4.01 10^6/uL (3.93-5.22); RDW 12.9 % (11.7-14.6); RDW-SD 46.1 fL; WBC 4.47 10^3/uL (4.4-10.8)
[2022-04-29 11:11] LABS: ALT 33 U/L (14-59); AST 30 U/L (15-37); Albumin 3.5 g/dL (3.4-5.0); Alkaline Phosphatase 75 U/L (46-116); Bilirubin, Direct 0.1 mg/dL (0.0-0.2); Bilirubin, Total 0.5 mg/dL (0.2-1.0); C-Reactive Protein 0.06 mg/dL (0.0-0.3); Total Protein 7.8 g/dL (6.4-8.2)
== END 2022-05-02 23:59 | disposition home or self-care (01) ==
LOC: INF 02:44
PROVIDERS: Internal Medicine Gastroenterology; PCP Family Medicine; Visit Provider Family Medicine
DX: K50.90 Crohn's disease, unspecified, without complications (principal)
CPT/HCPCS: 36415; 80076; 85027; 96365; 96366; 86140; J1745

== ENCOUNTER 2022-05-26 06:59 | Emergency (ER) | payer MEDICARE, OTHER, SELFPAY ==
[2022-05-26] VITALS (21 sets, daily range): BP systolic 131–165; BP diastolic 49–53; PULSE 59–71; RESP 18–21; TEMP 37.1; O2SAT 81–100
--- NOTE | 2022-05-26 07:00 | RT.EKG_ITS ---
APPROVED REPORT Exam: Resting ECG Reason for Exam: headache Patient Location: E HR:68 bpm ECG Measurements Heart Rate 68 AXIS NE 165 P 63 QRSd 94 QRS 45 QT 416 T 69 QTc 442 Conclusion Sinus rhythm...normal P axis, V-rate 60- 99. Sinus. Normal axis. No STEMI. I have reviewed and interpreted ECG and agree with software generated interpretation.
--- NOTE | 2022-05-26 08:00 | DI.CT_ITS ---
Exam(s) CT HEAD - STROKE PROTOCOL EXAM: CT HEAD - STROKE PROTOCOL CLINICAL HISTORY: headache, r/o acute disease/cva. TECHNIQUE: Imaging Protocol: Axial computed tomography images with coronal and sagittal reformatted images were created and reviewed COMPARISON: CT CT HEAD FACIAL WO from 05/05/2021 FINDINGS: Ventricles and Extra axial spaces: Normal in size and morphology for the patient's age. Hemorrhage: None. Cerebral parenchyma: Mild atrophy. White matter changes consistent with small vessel disease. Midline shift: None. Brainstem/Cerebellum: Normal. Calvarium: Normal. Visualized Paranasal sinuses/Mastoids: Clear. IMPRESSION: No acute abnormality. RADIATION DOSE DELIVERED: 717.21mGy.cm Total DLP 717.21mGy.cm Total DLP DATA REPOSITORY: All CT scans at this facility are submitted to the National Radiology Data Registry (NRDR) Dose Index Registry (DIR) with the [employer] (ACR). RADIATION OPTIMIZATION: All CT scans at this facility use at least one of these dose optimization te chniques: automated exposure control; mA and/or kV adjustment per patient size (includes targeted exa ms where dose is matched to clinical indication); or iterative reconstruction.
--- NOTE | 2022-05-26 08:00 | DI.RAD_ITS ---
Exam(s) XR CHEST 2V PA LATERAL EXAM: XR CHEST 2V PA LATERAL CLINICAL HISTORY: headache, r/o acute disease TECHNIQUE: 2D digital imaging was performed. COMPARISON: No exams were available for comparison FINDINGS: HEART: Normal size. Aorta: PULMONARY VASCULATURE: Normal. LUNGS: Clear. PLEURAL SPACE: No pleural effusion or pneumothorax. BONE:Unremarkable for age. IMPRESSION: No acute abnormality. DATA REPOSITORY: RADIATION DOSE DELIVERED:
[2022-05-26 08:10] LABS: Abs Immature Grans 0.01 10^3/uL (0.0-0.06); Absolute Basophil Count 0.04 10^3/uL (0.0-0.2); Absolute Eosinophil Count 0.02 10^3/uL (0.0-0.7); Absolute Lymphocyte Count 0.74 10^3/uL (1.2-3.4); Absolute Monocyte Count 0.64 10^3/uL (0.1-0.8); Absolute Neutrophil Count 3.92 10^3/uL (1.2-6.7); Basophils % 0.7; Eosinophils % 0.4; HCT 34.7 % (36.0-46.0); HGB 11.6 g/dL (11.2-15.7); Immature Grans % 0.2; Lymphocytes % 13.8; MCH 31.9 pg (27.0-33.0); MCHC 33.4 % (32.0-36.0); MCV 95 fL (80-95); MPV 11.3 fL (8.0-11.0); Monocytes % 11.9; Platelet Count 133 10^3/uL (130-400); RBC 3.64 10^6/uL (3.93-5.22); RDW 12.9 % (11.7-14.6); WBC 5.37 10^3/uL (4.4-10.8)
--- NOTE | 2022-05-26 08:11 | W.ED.GENAD ---
Discharge Plan Disposition Patient Disposition: HOME Condition: Improving Discharge Details Clinical Impression: COVID-19, Headache Primary Care Provider: Cesar Padilla ED Provider: Christina Ledesma Home Meds and New Rx's Prescriptions: Continued infliximab [Remicade] 100 mg recon soln IV Q10W Label Comments: per Dr Chu at [facility] aspirin [Adult Low Dose Aspirin] 81 mg tablet,delayed release (DR/EC) 81 mg PO DAILY Qty: 90 3RF Shingrix (PF) 50 mcg/0.5 mL suspension for reconstitution 50 mcg IM ONCE Qty: 1 1RF Rx Instructions: as a single dose, repeat x1 2-6 months following initial injection hydrochlorothiazide 12.5 mg tablet 12.5 mg PO QAM Qty: 90 3RF Rx Instructions: control BP under 140/85 atorvastatin 20 mg tablet 20 mg PO QHS polyethylene glycol 3350 [Miralax] 17 gram/dose powder 17 g PO DAILY ALOE VERA JUICE 1 bottle PO DAILY multivitamin [Daily Vitamin] 1 EACH tablet 1 ea PO DAILY diclofenac sodium 1 % gel TOPICAL BID PRN Label Comments: APPLY TO HANDS TWO TIMES A DAY NEEDED FOR JOINT PAIN Discharge Instructions Instructions: General Headache (ED), COVID-19 (Coronavirus Disease 2019) (ED) Additional Instructions: You tested positive for the COVID-19 virus today. It is suspected that your symptoms are secondary to COVID-19. You were given the monoclonal antibody infusion today in the emergency department to prevent progression to severe illness or related to COVID-19. Drink plenty of fluids and get plenty of rest. Alternate tylenol and motrin as needed and directed for pain. Follow-up with your primary care doctor in 1 week. Return to the emergency department with any worsening or new concerning symptoms. Discharge Data Discharge Physician: Christina Ledesma Medical Decision Making 82-year-old female with a history of hypertension, hyperlipidemia, ankylosing spondylitis and dementia who presents for frontal headache since the middle of the night. Reported intermittent headaches over the last 6 months. Blood pressure mildly hypertensive at 165/50. Remainder of vitals within normal limits. Patient appears generally comfortable and nontoxic. No focal deficits on exam. No meningeal signs. Differential diagnosis includes dehydration, electrolyte abnormality, UTI, Covid, pneumonia, CVA. History of presentation is not appear consistent with subarachnoid hemorrhage or meningitis. Will obtain screening labs, give bolus IV fluids, IV Tylenol, CT head and chest x-ray and reassess. Labs and imaging reviewed. Covid Positive. Normal white blood cell count. Troponin negative. CT head and chest x-ray negative for acute findings. Patient reassessed and she feels better. Case discussed with patient's partner eRg who agrees with plan for antiviral or monoclonal antibody infusion. Discussed with pharmacy and based on patient's renal function and Remicade, recommend monoclonal antibody infusion. Patient tolerated infusion well and feels comfortable going home. Discussed with partner who will pick her up. Advised increase fluids and rest. Advised to follow up with the primary care doctor for re-evaluation. Usual and customary return precautions given prior to discharge. Medical Records Medical records reviewed: Yes I reviewed the patient's medical records. Imaging Data Radiologic Study: Radiologist's impression: CT HEAD - STROKE PROTOCOL CLINICAL HISTORY: ? headache, r/o acute disease/cva. ? TECHNIQUE:? Imaging Protocol: Axial computed tomography images with coronal and sagittal reformatted images were created and reviewed COMPARISON:? CT CT HEAD ? FACIAL WO from 05/05/2021 FINDINGS: Ventricles and Extra axial spaces: Normal in size and morphology for the patient's age. Hemorrhage: None. Cerebral parenchyma:? Mild atrophy.? White matter changes consistent with small vessel disease. Midline shift: None. Brainstem/Cerebellum: Normal. Calvarium: Normal. Visualized Paranasal sinuses/Mastoids: Clear. IMPRESSION: No acute abnormality. XR CHEST 2V PA ? LATERAL CLINICAL HISTORY:? headache, r/o acute disease TECHNIQUE:? 2D digital imaging was performed. COMPARISON:? No exams were available for comparison FINDINGS: HEART: Normal size.? Aorta: PULMONARY VASCULATURE: Normal. LUNGS: Clear. ? PLEURAL SPACE: No pleural effusion or pneumothorax. BONE:Unremarkable for age.? IMPRESSION: No acute abnormality.? Lab Data Lab results reviewed: Yes I reviewed the patient's lab results. Labs: 05/26/22 09:05 Urine - Reflex from Ua Urine Culture - Pending Laboratory Tests Range/Units 05/26/22 05/26/22 05/26/22 07:25 07:25 07:45 WBC (4.4-10.8) 10^3/uL 5.37 RBC (3.93-5.22) 10^6/uL 3.64 L Hgb (11.2-15.7) g/dL 11.6 Hct (36.0-46.0) % 34.7 L MCV (80-95) fL 95 MCH (27.0-33.0) pg 31.9 MCHC (32.0-36.0) % 33.4 RDW (11.7-14.6) % 12.9 Plt Count (130-400) 10^3/uL 133 MPV (8.0-11.0) fL 11.3 H Immature Gran % 0.2 Neutrophils % 73.0 Lymphocytes % 13.8 Monocytes % 11.9 Eosinophils % 0.4 Basophils % 0.7 Nucleated RBC % (0.0-0.3) % 0.0 Absolute Neutrophils (1.2-6.7) 10^3/uL 3.92 Absolute Lymphocytes (1.2-3.4) 10^3/uL 0.74 L Absolute Monocytes (0.1-0.8) 10^3/uL 0.64 Absolute Eosinophils (0.0-0.7) 10^3/uL 0.02 Absolute Basophils (0.0-0.2) 10^3/uL 0.04 Sodium (136-145) mmol/L 139 Potassium (3.5-5.1) mmol/L 3.8 Chloride (98-107) mmol/L 103 Carbon Dioxide (21.0-32.0) mmol/L 29.4 Anion Gap (3-11) mmol/L 6.6 BUN (7-18) mg/dL 22 H Creatinine (0.55-1.02) mg/dL 1.1 H Est GFR (CKD-EPI 2020) (mL/min/1.73m2) 49.55 Glucose (74-106) mg/dL 118 H Calcium (8.5-10.1) mg/dL 9.0 Magnesium (1.8-2.4) mg/dL 1.9 Total Bilirubin (0.2-1.0) mg/dL 0.8 AST (15-37) U/L 31 ALT (14-59) U/L 29 Alkaline Phosphatase (46-116) U/L 77 Troponin I (<or=60) ng/L < 50 Total Protein (6.4-8.2) g/dL 7.9 Albumin (3.4-5.0) g/dL 3.6 Urine Color (Yellow) Urine Clarity (Clear) Urine pH (5-8) Ur Specific [place] (1.005-1.025) Urine Protein (Negative) mg/dL Urine Ketones (Negative) mg/dL Urine Blood (Negative) Urine Nitrite (Negative) Urine Bilirubin (Negative) Urine Urobilinogen (Up TO 0.2) EU/dL Ur Leukocyte Esterase (Negative) Urine RBC (0-2) HPF Urine WBC (0-5) HPF Ur Epithelial Cells (Negative) HPF Urine Crystals (Negative) HPF Urine Bacteria (Negative) HPF Urine Casts (Negative) LPF Urine Mucus (Negative) Ur Culture Indicated? Urine Glucose (Negative) mg/dL COVID-19 Source Not Applicable SARS-CoV-2 (PCR) (Negative) Positive A Influenza Type A (PCR) (Negative) Negative Influenza Type B (PCR) (Negative) Negative RSV (PCR) (Negative) Negative Range/Units 05/26/22 09:05 WBC (4.4-10.8) 10^3/uL RBC (3.93-5.22) 10^6/uL Hgb (11.2-15.7) g/dL Hct (36.0-46.0) % MCV (80-95) fL MCH (27.0-33.0) pg MCHC (32.0-36.0) % RDW (11.7-14.6) % Plt Count (130-400) 10^3/uL MPV (8.0-11.0) fL Immature Gran % Neutrophils % Lymphocytes % Monocytes % Eosinophils % Basophils % Nucleated RBC % (0.0-0.3) % Absolute Neutrophils (1.2-6.7) 10^3/uL Absolute Lymphocytes (1.2-3.4) 10^3/uL Absolute Monocytes (0.1-0.8) 10^3/uL Absolute Eosinophils (0.0-0.7) 10^3/uL Absolute Basophils (0.0-0.2) 10^3/uL Sodium (136-145) mmol/L Potassium (3.5-5.1) mmol/L Chloride (98-107) mmol/L Carbon Dioxide (21.0-32.0) mmol/L Anion Gap (3-11) mmol/L BUN (7-18) mg/dL Creatinine (0.55-1.02) mg/dL Est GFR (CKD-EPI 2020) (mL/min/1.73m2) Glucose (74-106) mg/dL Calcium (8.5-10.1) mg/dL Magnesium (1.8-2.4) mg/dL Total Bilirubin (0.2-1.0) mg/dL AST (15-37) U/L ALT (14-59) U/L Alkaline Phosphatase (46-116) U/L Troponin I (<or=60) ng/L Total Protein (6.4-8.2) g/dL Albumin (3.4-5.0) g/dL Urine Color (Yellow) Yellow Urine Clarity (Clear) Sl Cloudy Urine pH (5-8) 7.0 Ur Specific [place] (1.005-1.025) 1.025 Urine Protein (Negative) mg/dL 30 H Urine Ketones (Negative) mg/dL Trace H Urine Blood (Negative) Negative Urine Nitrite (Negative) Negative Urine Bilirubin (Negative) Negative Urine Urobilinogen (Up TO 0.2) EU/dL 0.2 Ur Leukocyte Esterase (Negative) Negative Urine RBC (0-2) HPF 0-2 Urine WBC (0-5) HPF 0-2 Ur Epithelial Cells (Negative) HPF Few Urine Crystals (Negative) HPF Moderate Amorphous Urine Bacteria (Negative) HPF Moderate Urine Casts (Negative) LPF Negative Urine Mucus (Negative) Heavy Ur Culture Indicated? Yes Urine Glucose (Negative) mg/dL Negative COVID-19 Source SARS-CoV-2 (PCR) (Negative) Influenza Type A (PCR) (Negative) Influenza Type B (PCR) (Negative) RSV (PCR) (Negative) ECG Data Attestation: I personally reviewed and interpreted this ECG (s) as follows: Interpretation: rate of 68, sinus, normal axis, no stemi. HPI General Mode of arrival: ambulatory. Date/Time Provider Initiated Documentation: 05/26/22 07:01. Limitations to Documentation: no limitations. Information obtained by: patient and family. HPI Narrative: Pt is a 82yo F who presents to the ED with a complaint of headache since the middle of the night. Patient's male friend/significant other states he heard patient moaning around 1 AM. He states when she awoke later this morning she complained of frontal headache. He states she also complained of neck and shoulder pain but she denied this to me. She states her headache is mild at this time. She has not taken any medication for pain. Significant other states that patient has complained of headaches off and on for the past 6 months. He states they have spoken to her primary care doctor regarding this but no recommendations or diagnosis has been made. He states she does not drink much water throughout the day and tries drink 8 ounces of water. She has not eaten or drank anything yet this morning. She denies fever, blurry vision, ear pain, runny nose, sore throat, chest pain, difficulty breathing, abdominal pain, nausea, vomiting, diarrhea or urinary symptoms. Denies any recent head injury or recent illness. Related Data Home Medications Medication Instructions Recorded Confirmed Aloe Vera Juice 1 bottle PO DAILY 11/30/12 04/29/22 multivitamin (Daily Vitamin tablet) 1 ea PO DAILY 11/30/12 04/29/22 infliximab 100 mg intravenous IV Q10W Arthritis, Crohns 11/24/18 04/29/22 solution (Remicade) aspirin 81 mg tablet,delayed 81 mg PO DAILY #90 tabs 08/15/19 04/29/22 release (Adult Low Dose Aspirin) varicella-zoster glycoE vacc-AS01B 50 mcg IM ONCE Immunization #1 ea 08/15/19 05/05/21 adj(PF) 50 mcg/0.5 mL IM susp, kit (Shingrix (PF)) hydrochlorothiazide 12.5 mg tablet 12.5 mg PO QAM #90 tab-caps 10/13/19 04/29/22 diclofenac sodium 1 % topical gel topical BID PRN 04/28/20 04/29/22 atorvastatin 20 mg tablet 20 mg PO QHS 03/25/22 04/29/22 polyethylene glycol 3350 17 17 g PO DAILY 03/25/22 04/29/22 gram/dose oral powder (Miralax) Previous Rx's Medication Instructions Recorded aspirin 81 mg tablet,delayed 81 mg PO DAILY #90 tabs 08/15/19 release (Adult Low Dose Aspirin) varicella-zoster glycoE vacc-AS01B 50 mcg IM ONCE Immunization #1 ea 08/15/19 adj(PF) 50 mcg/0.5 mL IM susp, kit (Shingrix (PF)) hydrochlorothiazide 12.5 mg tablet 12.5 mg PO QAM #90 tab-caps 10/13/19 Allergies Allergy/AdvReac Type Severity Reaction Status Date / Time Sulfa (Sulfonamide Allergy Intermediate hives Verified 04/29/22 14:14 Antibiotics) codeine Allergy Unknown rash Verified 04/29/22 14:14 mesalamine [From Apriso] AdvReac Intermediate Diarrhea Verified 04/29/22 14:14 General Stated Complaint: Headache ALEX: 3 Review of Systems All systems reviewed & are unremarkable except as noted in HPI and below Constitutional Constitutional: Reports as per HPI, Denies chills, Denies fever(s) and Reports headache(s) Eyes Eyes: Denies blurry vision ENT Ears, Nose, Mouth, and Throat: Denies dizziness, Reports headache(s), Denies sore throat and Denies throat swelling Cardiovascular Cardiovascular: Denies chest pain and Denies dyspnea Respiratory Respiratory: Denies cough and Denies dyspnea Gastrointestinal Gastrointestinal: Denies abdominal pain, Denies diarrhea and Denies vomiting Genitourinary Genitourinary: Denies hematuria and Denies dysuria Musculoskeletal Musculoskeletal: Denies back pain and Denies numbness Integumentary/Breasts Skin/Breast: Denies lesions and Denies rash Neurologic Neurologic: Denies dizziness, Reports headache(s), Denies localized weakness and Denies numbness Allergic/Immunologic Allergic/Immunologic: Denies throat swelling PFSH All Active Problems (Updated 05/26/22 @ 11:00 by Christina Ledesma DO) COVID-19 (Acute) Headache (Acute) Constipation (Acute) Contusion of face (Acute) Abrasion of face (Acute) Mild obstructive sleep apnea (Chronic) Sleep Medicine: 05/30/2019 diagnosed & 07/07/2019--CPAP RX Unintentional weight loss of 10% body weight within 6 months (Acute) Memory changes (Chronic) Ankylosing spondylitis (Chronic 08/03/1968) dx [facility] 08/08/83 Dr Mya Santos; spine; Rheum f/u 12/2016 CT c-spine 10/22/2014 Essential hypertension with goal blood pressure less than 140/90 (Chronic 10/06/13) goal <150/90 Generalized osteoarthrosis (Chronic 08/13/11) LS spine, facet arthopathy Hearing loss (Chronic 08/13/11) High risk medications (not anticoagulants) long-term use (Chronic 09/22/06) Remicaid rx for enteritis and spondylitis, [facility] Ol[facility]a (see Aug 2006 note) and Vlad; blood test every 20 wks (every other Remicade dose per Dr. 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) dx 93; asacol since ; remacaid since ; last colon 08/2016 [facility] [place] Vlad no active dis 03/2019: Colonoscopy only microscopic colitis; no dysplasia; next colonoscopy 2021 (Giovany Chu) Medical History (Updated 05/26/22 @ 11:00 by Christina Ledesma DO) Anemia Chronic throat clearing Elevated liver enzymes Erythema nodosum Hoarseness Internal carotid artery stenosis Lightheadedness Throat clearing White matter disease Surgical History Appendectomy Extraction of cataract (09/04/16) L eye; and later R eye Dr Reardon Extraction of cataract (09/16/16) L eye; and later R eye Dr Reardon S/P [id number]-BSO 12/31/81 Family History Mother , pancreatic ca at age 90. Hypertension Sister , multiple myeloma at age 49. Ovarian cancer Bone cancer Brother Heart disease Hypertension Social History Smoking/Tobacco Use Status: Never Smoking risk assessment performed?: Yes Alcohol Intake: never Drug use: Never Substance use type: does not use Household members: significant other Housing: house Pets and animals: No Current gender identity: female What is your relationship status?: living with partner Panel score (0-1 are the most socially isolated patients): 1 What type of physical activity do you participate in: walking Duration: 15-30 minutes/day Frequency: 5-6 times per week Seatbelt use: always Water heater temp set <120 deg: Yes Working smoke detector in home: Yes Carbon monox detector in home: Yes Do you feel safe at home: Yes Do you feel safe in your relationship?: Yes Exam Const General: cooperative, healthy appearing and no acute distress Orientation: alert, awake and oriented x3 HENMT Head: normal to inspection Face and sinus: normal facial exam Eyes General: appearance normal, both eyes and all related structures Pupils: PERRL EOM: EOM intact bilaterally Neck Neck: normal visual inspection and No submandibular swelling Lymphatic: no lymphadenopathy noted Chest Chest: normal inspection of the chest and no tenderness Resp Effort & Inspection: normal respiratory effort and able to speak in complete sentences Auscultation: clear to auscultation bilaterally Cardio Rate: regular rate Rhythm: regular rhythm GI Inspection: normal to inspection Palpation: soft, not firm, not rigid and nontender Auscultation: hypoactive bowel sounds Back/Spine/Pelvis Thoracic/Lumbar Spine: thoracic and lumbar spine normal to inspection Skin General skin exam: no rashes or lesions noted Neuro General: patient alert, patient awake, patient oriented x3 and moves all extremities Cranial Nerves: CN's II-XI intact bilaterally Cognition: normal cognition Speech: speech normal Motor: muscle tone normal throughout and strength 5/5 throughout Sensory Exam: no sensory deficits noted Extrem General: normal to inspection, full ROM, capillary refill normal, no calf tenderness bilaterally and no edema Psych Appearance: grossly normal Mental Status: mental status grossly normal Speech and Movement: speech and movement normal Affect: normal affect Course Vital Signs Vital signs: Vital Signs Temperature 98.8 F 05/26/22 07:06 Pulse 68 05/26/22 07:06 Respiratory Rate 18 05/26/22 07:06 Blood Pressure 165/50 H 05/26/22 07:06 Pulse Oximetry 95 05/26/22 07:06 Temperature 98.8 F 05/26/22 07:06 Temperature Source Temporal Artery Scan 05/26/22 07:06 Pulse 68 05/26/22 07:06 Respiratory Rate 18 05/26/22 07:06 Respiratory Effort Non-Labored 05/26/22 07:13 Blood Pressure 165/50 H 05/26/22 07:06 Blood Pressure Position Sitting 05/26/22 07:06 Pulse Oximetry 95 05/26/22 07:06 Oxygen Delivery Method Room Air 05/26/22 07:06 Oxygen Flow Rate 0 05/26/22 07:06
[2022-05-26 08:25] LABS: Influenza A PCR Negative (Negative); Influenza B PCR Negative (Negative); RSV PCR Negative (Negative)
[2022-05-26 08:27] LABS: COVID-19 PCR Positive (Negative)
[2022-05-26 08:32] LABS: ALT 29 U/L (14-59); AST 31 U/L (15-37); Albumin 3.6 g/dL (3.4-5.0); Alkaline Phosphatase 77 U/L (46-116); Anion Gap 6.6 mmol/L (3-11); BUN 22 mg/dL (7-18); Bilirubin, Total 0.8 mg/dL (0.2-1.0); CO2 29.4 mmol/L (21.0-32.0); CREATININE 1.1 mg/dL (0.55-1.02); Chloride 103 mmol/L (98-107); Estimated GFR 49.55 (mL/min/1.73m2); Glucose 118 mg/dL (74-106); Magnesium 1.9 mg/dL (1.8-2.4); Potassium 3.8 mmol/L (3.5-5.1); Sodium 139 mmol/L (136-145); Total Protein 7.9 g/dL (6.4-8.2); Troponin I < 50 ng/L (<or=60)
--- NOTE | 2022-05-26 08:35 | DI.VRAD_ITS ---
PROCEDURE INFORMATION: Exam: CT Head Without Contrast Exam date and time: 05/26/2022 8:19 AM Age: 82 years old Clinical indication: Stroke-like symptoms; Other: Headache TECHNIQUE: Imaging protocol: Computed tomography of the head without contrast. Other technique: STROKE PROTOCOL was implemented. COMPARISON: CT HEAD FACIAL WO 05/05/2021 9:27 PM FINDINGS: Brain: Moderate involutional changes of the brain parenchyma. Moderate low attenuation in the periventricular white matter. This is a nonspecific finding most commonly seen in setting of microvascular ischemic change. No evidence of acute infarct. No intraparenchymal hemorrhage. No midline shift or mass effect. No extra-axial fluid collections or hemorrhage. Cerebral ventricles: No ventriculomegaly. Paranasal sinuses: Mild mucosal thickening in the right maxillary sinus and right ethmoid air cells. Mastoid air cells: Visualized mastoid air cells are well aerated. Bones/joints: Unremarkable. No acute fracture. Soft tissues: Unremarkable. IMPRESSION: No evidence of acute intracranial abnormality. ASSESSMENT: ASPECTS ([place] Stroke Program Early CT Score) is 10. Dictated and Authenticated by: Pilar Colunga MD. Ordering:ZEE Vasquez MD
[2022-05-26 09:36] LABS: Bilirubin Negative (Negative); Blood Negative (Negative); Clarity Sl Cloudy (Clear); Glucose Negative (Negative); Ketones Trace mg/dL (Negative); Leukocyte Esterase Negative (Negative); Nitrite Negative (Negative); Specific Gravity 1.025 (1.005-1.025); Urobilinogen 0.2 EU/dL (Up TO 0.2)
[2022-05-26 09:56] LABS: Bacteria Moderate HPF (Negative); Crystals Moderate Amorphous HPF (Negative); Epithelial Cells Few HPF (Negative); Mucus Heavy (Negative); RBC 0-2 HPF (0-2); WBC 0-2 HPF (0-5)
[2022-05-26 09:57] LABS: C & S Indicated? Yes; Casts Negative LPF (Negative)
== END 2022-05-26 11:08 | disposition home or self-care (01) ==
PROVIDERS: Emergency Provider Physician Assistant; PCP Family Medicine
DX: U07.1 COVID-19 (principal); R51.9 Headache, unspecified; I10 Essential (primary) hypertension; R82.998 Other abnormal findings in urine
CPT/HCPCS: 36415; 80053; 87637; 93005; 96374; 99284; 99285; Q0222; 70450; 71046; 81003; 81015; 83735; 84484; 85025; 87086; 93010

== ENCOUNTER 2022-07-10 01:25 | Outpatient (RCR) | payer MEDICARE, OTHER, SELFPAY ==
[2022-05-03 00:15] VITALS: BP 131/70; PULSE 70; RESP 17; TEMP 35.8
[2022-07-10] VITALS (7 sets, daily range): BP systolic 119–160; BP diastolic 57–84; PULSE 49–60; RESP 16; TEMP 36.2–36.4; O2SAT 97–99
[2022-07-10] MEDS: Acetaminophen 325 MG TAB 650 MG PO (10:30)
[2022-07-10] MEDS: diphenhydrAMINE 25 MG CAP PO (10:30)
[2022-07-10 10:39] LABS: Abs Immature Grans 0.01 10^3/uL (0.0-0.06); Absolute Basophil Count 0.05 10^3/uL (0.0-0.2); Absolute Eosinophil Count 0.36 10^3/uL (0.0-0.7); Absolute Lymphocyte Count 1.96 10^3/uL (1.2-3.4); Absolute Monocyte Count 0.54 10^3/uL (0.1-0.8); Absolute Neutrophil Count 2.23 10^3/uL (1.2-6.7); HCT 35.8 % (36.0-46.0); HGB 11.9 g/dL (11.2-15.7); Immature Grans % 0.2; Lymphocytes % 38.1; MCHC 33.2 % (32.0-36.0); MCV 96 fL (80-95); MPV 11.9 fL (8.0-11.0); Monocytes % 10.5; Neutrophils % 43.2; Platelet Count 139 10^3/uL (130-400); RBC 3.72 10^6/uL (3.93-5.22); RDW 12.9 % (11.7-14.6); RDW-SD 46.4 fL; WBC 5.15 10^3/uL (4.4-10.8)
[2022-07-10 10:51] LABS: ALT 29 U/L (14-59); AST 27 U/L (15-37); Albumin 3.6 g/dL (3.4-5.0); Alkaline Phosphatase 86 U/L (46-116); Bilirubin, Direct 0.2 mg/dL (0.0-0.2); Bilirubin, Total 0.5 mg/dL (0.2-1.0); C-Reactive Protein < 0.05 mg/dL (0.0-0.3); Total Protein 8.1 g/dL (6.4-8.2)
[2022-07-10] MEDS: Normal Saline Flush 10 ML SYR IVP (10:52)
[2022-07-15 00:22] LABS: Infliximab 12 mcg/mL (<=5.0)
== END 2022-08-02 23:59 | disposition home or self-care (01) ==
LOC: INF 01:25
PROVIDERS: PCP Family Medicine; Visit Provider Family Medicine
DX: K50.10 Crohn's disease of large intestine without complications (principal); M45.0 Ankylosing spondylitis of multiple sites in spine
CPT/HCPCS: 36415; 80076; 82397; 96365; 96366; 85025; 86140; J1745

== ENCOUNTER 2022-09-18 01:22 | Outpatient (RCR) | payer MEDICARE, OTHER, SELFPAY ==
[2022-08-03] VITALS: BP 159/59; PULSE 56; RESP 16; TEMP 36.2
[2022-09-18] VITALS (7 sets, daily range): BP systolic 128–149; BP diastolic 59–71; PULSE 46–60; RESP 17–18; TEMP 35.3–36.9; O2SAT 98–99
[2022-09-18] MEDS: Normal Saline Flush 10 ML SYR IVP (09:47)
[2022-09-18] MEDS: Acetaminophen 325 MG TAB 650 MG PO (09:47)
[2022-09-18] MEDS: diphenhydrAMINE 25 MG CAP PO (09:47)
== END 2022-09-30 23:59 | disposition home or self-care (01) ==
LOC: INF 01:22
PROVIDERS: PCP Family Medicine; Visit Provider Family Medicine
DX: K50.10 Crohn's disease of large intestine without complications (principal)
CPT/HCPCS: 96365; 96366; J1745

== ENCOUNTER 2022-11-27 01:41 | Outpatient (RCR) | payer MEDICARE, OTHER, SELFPAY ==
[2022-10-01 00:11] VITALS: BP 148/71; PULSE 60; RESP 17; TEMP 36.8
[2022-11-27] VITALS (7 sets, daily range): BP systolic 121–155; BP diastolic 64–70; PULSE 46–65; RESP 18; TEMP 35.2–36; O2SAT 97–98
[2022-11-27] MEDS: Acetaminophen 325 MG TAB 650 MG PO (10:04)
[2022-11-27] MEDS: Normal Saline Flush 10 ML SYR IVP (10:05)
[2022-11-27] MEDS: diphenhydrAMINE 25 MG CAP PO (10:05)
[2022-11-27 10:35] LABS: Abs Immature Grans 0.02 10^3/uL (0.0-0.06); Absolute Basophil Count 0.07 10^3/uL (0.0-0.2); Absolute Eosinophil Count 0.36 10^3/uL (0.0-0.7); Absolute Lymphocyte Count 2.21 10^3/uL (1.2-3.4); Absolute Monocyte Count 0.64 10^3/uL (0.1-0.8); Absolute Neutrophil Count 2.59 10^3/uL (1.2-6.7); Basophils % 1.2; Eosinophils % 6.1; HCT 39.3 % (36.0-46.0); HGB 13.1 g/dL (11.2-15.7); Immature Grans % 0.3; Lymphocytes % 37.5; MCH 31.6 pg (27.0-33.0); MCHC 33.3 % (32.0-36.0); MCV 95 fL (80-95); MPV 11.4 fL (8.0-11.0); Monocytes % 10.9; Platelet Count 148 10^3/uL (130-400); RBC 4.15 10^6/uL (3.93-5.22); RDW 12.8 % (11.7-14.6); RDW-SD 44.5 fL; WBC 5.89 10^3/uL (4.4-10.8)
[2022-11-27 10:55] LABS: ALT 39 U/L (14-59); AST 31 U/L (15-37); Albumin 3.7 g/dL (3.4-5.0); Alkaline Phosphatase 85 U/L (46-116); Bilirubin, Direct 0.1 mg/dL (0.0-0.2); Bilirubin, Total 0.4 mg/dL (0.2-1.0); Total Protein 8.1 g/dL (6.4-8.2)
[2022-11-27 11:00] LABS: C-Reactive Protein < 0.05 mg/dL (0.0-0.3)
== END 2022-11-30 23:59 | disposition home or self-care (01) ==
LOC: INF 01:41
PROVIDERS: Internal Medicine Gastroenterology; PCP Family Medicine; Visit Provider Family Medicine
DX: K50.10 Crohn's disease of large intestine without complications (principal)
CPT/HCPCS: 80076; 96365; 96366; 85025; 86140; J1745

== ENCOUNTER 2023-02-05 02:51 | Outpatient (RCR) | payer MEDICARE, OTHER, SELFPAY ==
[2022-12-01 00:01] VITALS: BP 122/70; PULSE 65; RESP 18; TEMP 35.2
[2023-02-05] MEDS: Acetaminophen 325 MG TAB 650 MG PO (09:54)
[2023-02-05] MEDS: diphenhydrAMINE 25 MG CAP PO (09:54)
[2023-02-05 10:07] VITALS: BP 130/73; PULSE 59; RESP 17; TEMP 37.1; O2SAT 95
[2023-02-05 10:19] LABS: Abs Immature Grans 0.01 10^3/uL (0.0-0.06); Absolute Basophil Count 0.05 10^3/uL (0.0-0.2); Absolute Eosinophil Count 0.32 10^3/uL (0.0-0.7); Absolute Lymphocyte Count 2.36 10^3/uL (1.2-3.4); Absolute Monocyte Count 0.61 10^3/uL (0.1-0.8); Absolute Neutrophil Count 2.17 10^3/uL (1.2-6.7); Basophils % 0.9; Eosinophils % 5.8; HCT 36.3 % (36.0-46.0); HGB 12.3 g/dL (11.2-15.7); Immature Grans % 0.2; Lymphocytes % 42.8; MCH 31.9 pg (27.0-33.0); MCHC 33.9 % (32.0-36.0); MCV 94 fL (80-95); Monocytes % 11.1; Neutrophils % 39.2; Platelet Count 140 10^3/uL (130-400); RBC 3.85 10^6/uL (3.93-5.22); RDW 12.9 % (11.7-14.6); RDW-SD 44.3 fL; WBC 5.52 10^3/uL (4.4-10.8)
[2023-02-05 10:33] LABS: ALT 28 U/L (14-59); AST 26 U/L (15-37); Albumin 3.6 g/dL (3.4-5.0); Alkaline Phosphatase 78 U/L (46-116); Bilirubin, Direct 0.1 mg/dL (0.0-0.2); Bilirubin, Total 0.4 mg/dL (0.2-1.0); C-Reactive Protein < 0.05 mg/dL (0.0-0.3); Total Protein 7.7 g/dL (6.4-8.2)
[2023-02-05 10:40] VITALS: BP 134/68; PULSE 49; RESP 18; TEMP 36.7; O2SAT 97
[2023-02-05 10:55] VITALS: BP 148/59; PULSE 51; TEMP 36.6; O2SAT 98
[2023-02-05 11:13] VITALS: BP 144/70; PULSE 50; TEMP 36.7; O2SAT 96
[2023-02-05 11:30] VITALS: BP 144/73; PULSE 50; RESP 17; TEMP 36.6; O2SAT 98
[2023-02-05 12:00] VITALS: BP 139/70; PULSE 53; RESP 17; TEMP 36.6; O2SAT 98
== END 2023-03-02 23:59 | disposition home or self-care (01) ==
LOC: INF 02:51
PROVIDERS: Internal Medicine Gastroenterology; PCP Family Medicine; Visit Provider Family Medicine
DX: M45.0 Ankylosing spondylitis of multiple sites in spine (principal); K50.10 Crohn's disease of large intestine without complications
CPT/HCPCS: 80076; 96365; 96366; 85025; 86140; J1745

== ENCOUNTER 2023-04-16 02:14 | Outpatient (RCR) | payer MEDICARE, OTHER, SELFPAY ==
[2023-03-03 00:01] VITALS: BP 139/70; PULSE 53; RESP 17; TEMP 36.6
[2023-04-16] VITALS (7 sets, daily range): BP systolic 126–158; BP diastolic 53–78; PULSE 55–60; RESP 16–18; TEMP 35.7–36.8; O2SAT 97–98
[2023-04-16] MEDS: Acetaminophen 325 MG TAB 650 MG PO (11:56)
[2023-04-16] MEDS: diphenhydrAMINE 25 MG CAP PO (11:56)
[2023-04-16] MEDS: Normal Saline Flush 10 ML SYR IVP (12:32)
== END 2023-05-02 23:59 | disposition home or self-care (01) ==
LOC: INF 02:14
PROVIDERS: PCP Family Medicine; Visit Provider Family Medicine
DX: K50.10 Crohn's disease of large intestine without complications (principal)
CPT/HCPCS: 96365; 96366; J1745

== ENCOUNTER → 2023-06-09 08:06 | Outpatient (BNVA) | payer MEDICARE, OTHER, SELFPAY | PROVIDERS: PCP Family Medicine; Referring Provider Family Medicine; Visit Provider Podiatrist | DX: L60.3 Nail dystrophy (principal); B35.1 Tinea unguium; N18.30 Chronic kidney disease, stage 3 unspecified; D64.9 Anemia, unspecified; L65.9 Nonscarring hair loss, unspecified; R23.4 Changes in skin texture; L60.8 Other nail disorders | CPT/HCPCS: 11721 ==

== ENCOUNTER 2023-06-26 00:27 | Outpatient (RCR) | payer MEDICARE, OTHER, SELFPAY ==
[2023-05-03 00:01] VITALS: BP 126/78; PULSE 60; RESP 18; TEMP 36.4
[2023-06-26] VITALS (7 sets, daily range): BP systolic 118–158; BP diastolic 62–78; PULSE 50–61; RESP 16–17; TEMP 35.3–36.5; O2SAT 95–98
[2023-06-26] MEDS: Acetaminophen 325 MG TAB 650 MG PO (10:54)
[2023-06-26] MEDS: diphenhydrAMINE 25 MG CAP PO (10:54)
[2023-06-26] MEDS: Normal Saline Flush 10 ML SYR IVP (10:54)
[2023-06-26 11:23] LABS: HCT 37.4 % (36.0-46.0); HGB 12.6 g/dL (11.2-15.7); MCHC 33.7 % (32.0-36.0); MCV 95 fL (80-95); MPV 12.4 fL (8.0-11.0); Platelet Count 140 10^3/uL (130-400); RBC 3.94 10^6/uL (3.93-5.22); RDW 12.8 % (11.7-14.6); RDW-SD 44.7 fL; WBC 4.93 10^3/uL (4.4-10.8)
[2023-06-26 11:38] LABS: ALT 27 U/L (14-59); AST 39 U/L (15-37); Albumin 3.3 g/dL (3.4-5.0); Alkaline Phosphatase 68 U/L (46-116); Bilirubin, Total 0.6 mg/dL (0.2-1.0); C-Reactive Protein 0.17 mg/dL (0.0-0.3); Total Protein 7.4 g/dL (6.4-8.2)
[2023-06-26 11:52] LABS: Bilirubin, Direct 0.1 mg/dL (0.0-0.2)
== END 2023-07-02 23:59 | disposition home or self-care (01) ==
LOC: INF 00:27
PROVIDERS: PCP Family Medicine; Visit Provider Family Medicine
DX: K50.10 Crohn's disease of large intestine without complications (principal)
CPT/HCPCS: 36415; 80076; 85027; 96365; 96366; 86140; J1745

== ENCOUNTER → 2023-07-28 16:41 | Outpatient (CLI) | payer MEDICARE, OTHER, SELFPAY ==
--- NOTE | 2023-07-28 15:45 | DI.RAD_ITS ---
Exam(s) XR CHEST 2V PA LATERAL EXAM: XR CHEST 2V PA LATERAL CLINICAL HISTORY: COUGH, R05.9 TECHNIQUE: 2D digital imaging was performed. COMPARISON: CR XR CHEST 2V PA LATERAL from 05/26/2022 FINDINGS: HEART: Normal size. Aorta: Not dilated. PULMONARY VASCULATURE: Normal. LUNGS: Clear. PLEURAL SPACE: No pleural effusion or pneumothorax. BONE:Old left rib fractures. Thoracic compression fractures. Soft tissues: Unremarkable. IMPRESSION: No acute abnormality. DATA REPOSITORY: RADIATION DOSE DELIVERED:
== END ==
PROVIDERS: PCP Family Medicine; Visit Provider Physician Assistant
DX: R05.9 Cough, unspecified (principal)
CPT/HCPCS: 71046

== ENCOUNTER 2023-09-04 02:00 | Outpatient (RCR) | payer MEDICARE, OTHER, SELFPAY ==
[2023-07-03 00:01] VITALS: BP 126/78; PULSE 60; RESP 18; TEMP 36.4
[2023-09-04] VITALS (7 sets, daily range): BP systolic 134–164; BP diastolic 67–79; PULSE 52–63; RESP 17–20; TEMP 35.1–36.1; O2SAT 96–98
[2023-09-04] MEDS: diphenhydrAMINE 25 MG CAP PO (10:45)
[2023-09-04] MEDS: Acetaminophen 325 MG TAB 650 MG PO (10:45)
[2023-09-04] MEDS: Normal Saline Flush 10 ML SYR IVP ×2 (10:51→11:08)
== END 2023-10-01 23:59 | disposition home or self-care (01) ==
LOC: INF 02:00
PROVIDERS: PCP Family Medicine; Visit Provider Family Medicine
DX: K50.10 Crohn's disease of large intestine without complications (principal)
CPT/HCPCS: 96365; 96366; Q5104

== ENCOUNTER → 2023-09-08 10:44 | Outpatient (BNVA) | payer MEDICARE, OTHER, SELFPAY | PROVIDERS: PCP Family Medicine; Referring Provider Family Medicine; Visit Provider Podiatrist ==

== ENCOUNTER 2023-10-16 15:49 | Outpatient (REF) | payer MEDICARE, OTHER, SELFPAY ==
[2023-10-16 19:19] LABS: HCT 39.1 % (36.0-46.0); MCH 32.4 pg (27.0-33.0); MCHC 33.2 % (32.0-36.0); MCV 98 fL (80-95); MPV 12.4 fL (8.0-11.0); Platelet Count 163 10^3/uL (130-400); RBC 4.01 10^6/uL (3.93-5.22); RDW 13.1 % (11.7-14.6); RDW-SD 46.9 fL; WBC 4.62 10^3/uL (4.4-10.8)
[2023-10-16 19:46] LABS: ALT 32 U/L (14-59); AST 26 U/L (15-37); Alkaline Phosphatase 88 U/L (46-116); Anion Gap 9.1 mmol/L (3-11); BUN 23 mg/dL (7-18); Bilirubin, Total 0.5 mg/dL (0.2-1.0); CO2 30.9 mmol/L (21.0-32.0); CREATININE 1.1 mg/dL (0.55-1.02); Calcium 9.2 mg/dL (8.5-10.1); Calculated LDL 94 mg/dL (<100); Chloride 104 mmol/L (98-107); Cholesterol 181 mg/dL (<200); Estimated GFR 49.24 (mL/min/1.73m2); Ferritin 107 ng/mL (8-252); Glucose 83 mg/dL (74-106); HDL Cholesterol 62 mg/dL (40-60); Potassium 4.2 mmol/L (3.5-5.1); Sodium 144 mmol/L (136-145); Total Protein 8.2 g/dL (6.4-8.2); Triglyceride 126 mg/dL (<150)
[2023-10-19 10:07] LABS: Hepatitis B Surface Ag Negative (Negative)
[2023-10-19 10:38] LABS: Hep B Core Antibody Negative (Negative)
== END 2023-10-16 15:50 | disposition home or self-care (01) ==
LOC: NCHCN 15:49
PROVIDERS: PCP Family Medicine; Referring Provider Family Medicine; Visit Provider Family Medicine
DX: R74.01 Elevation of levels of liver transaminase levels (principal)
CPT/HCPCS: 80053; 80061; 85027; 86704; 87340; 82728

== ENCOUNTER 2023-11-13 00:43 | Outpatient (RCR) | payer MEDICARE, OTHER, SELFPAY ==
[2023-10-02 00:14] VITALS: BP 126/78; PULSE 60; RESP 18; TEMP 36.4
[2023-11-13] VITALS (7 sets, daily range): BP systolic 128–172; BP diastolic 60–74; PULSE 53–67; RESP 16–18; TEMP 36–36.4; O2SAT 94–97
[2023-11-13] MEDS: Normal Saline Flush 10 ML SYR IVP (10:42)
[2023-11-13] MEDS: diphenhydrAMINE 25 MG CAP PO (10:42)
[2023-11-13] MEDS: Acetaminophen 325 MG TAB 650 MG PO (10:42)
[2023-11-13 11:24] LABS: HCT 38.9 % (36.0-46.0); HGB 13.1 g/dL (11.2-15.7); MCH 32.3 pg (27.0-33.0); MCHC 33.7 % (32.0-36.0); MCV 96 fL (80-95); MPV 11.9 fL (8.0-11.0); Platelet Count 149 10^3/uL (130-400); RBC 4.05 10^6/uL (3.93-5.22); RDW 12.8 % (11.7-14.6); RDW-SD 45.8 fL; WBC 5.03 10^3/uL (4.4-10.8)
[2023-11-13 11:37] LABS: C-Reactive Protein < 0.50 mg/dL (<or=0.5)
[2023-11-13 12:32] LABS: ALT 30 U/L (14-59); AST 27 U/L (15-37); Albumin 3.7 g/dL (3.4-5.0); Alkaline Phosphatase 81 U/L (46-116); Bilirubin, Direct 0.1 mg/dL (0.0-0.2); Bilirubin, Total 0.4 mg/dL (0.2-1.0); Total Protein 7.9 g/dL (6.4-8.2)
== END 2023-12-01 23:59 | disposition home or self-care (01) ==
LOC: INF 00:43
PROVIDERS: PCP Family Medicine; Visit Provider Family Medicine
DX: K50.10 Crohn's disease of large intestine without complications (principal)
CPT/HCPCS: 36415; 80076; 85027; 96365; 96366; 86140; Q5104

== ENCOUNTER → 2024-01-06 14:20 | Outpatient (BNVA) | payer MEDICARE, OTHER, SELFPAY | PROVIDERS: PCP Family Medicine; Referring Provider Family Medicine; Visit Provider Podiatrist | DX: L60.2 Onychogryphosis (principal); L85.9 Epidermal thickening, unspecified | CPT/HCPCS: 11719 ==

== ENCOUNTER 2024-01-26 02:29 | Outpatient (RCR) | payer MEDICARE, OTHER, SELFPAY ==
[2023-12-02 00:01] VITALS: BP 126/78; PULSE 60; RESP 18; TEMP 36.4
[2024-01-26] VITALS (7 sets, daily range): BP systolic 136–167; BP diastolic 65–80; PULSE 51–61; RESP 16–18; TEMP 36.1–36.6; O2SAT 97–98
[2024-01-26] MEDS: Acetaminophen 325 MG TAB 650 MG PO (10:55)
[2024-01-26] MEDS: diphenhydrAMINE 25 MG CAP PO (10:55)
[2024-01-26] MEDS: Normal Saline Flush 10 ML SYR IVP (11:31)
== END 2024-01-31 23:59 | disposition home or self-care (01) ==
LOC: INF 02:29
PROVIDERS: PCP Family Medicine; Visit Provider Family Medicine
DX: K50.10 Crohn's disease of large intestine without complications (principal)
CPT/HCPCS: 96365; 96366; Q5104

== ENCOUNTER 2024-02-24 10:52 | Outpatient (REF) | payer MEDICARE, OTHER, SELFPAY ==
[2024-02-24 16:29] LABS: Abs Immature Grans 0.02 10^3/uL (0.0-0.06); Absolute Basophil Count 0.07 10^3/uL (0.0-0.2); Absolute Lymphocyte Count 1.65 10^3/uL (1.2-3.4); Absolute Monocyte Count 0.52 10^3/uL (0.1-0.8); Absolute Neutrophil Count 2.52 10^3/uL (1.2-6.7); Basophils % 1.4 %; Eosinophils % 5.9 %; HCT 38.9 % (36.0-46.0); HGB 13.1 g/dL (11.2-15.7); Immature Grans % 0.4 %; Lymphocytes % 32.5 %; MCH 32.3 pg (27.0-33.0); MCHC 33.7 % (32.0-36.0); MCV 96 fL (80-95); Monocytes % 10.2 %; Neutrophils % 49.6 %; Platelet Count 144 10^3/uL (130-400); RBC 4.05 10^6/uL (3.93-5.22); RDW 12.8 % (11.7-14.6); WBC 5.08 10^3/uL (4.4-10.8)
[2024-02-24 16:54] LABS: ALT 31 U/L (14-59); AST 25 U/L (15-37); Albumin 3.7 g/dL (3.4-5.0); Alkaline Phosphatase 83 U/L (46-116); Anion Gap 6.7 mmol/L (3-11); BUN 15 mg/dL (7-18); Bilirubin, Total 0.62 mg/dL (0.2-1.0); C-Reactive Protein < 0.50 mg/dL (<or=0.5); CO2 32.3 mmol/L (21.0-32.0); CREATININE 1.3 mg/dL (0.55-1.02); Calcium 9.1 mg/dL (8.5-10.1); Chloride 106 mmol/L (98-107); Estimated GFR 40.05 (mL/min/1.73m2); Glucose 141 mg/dL (74-106); Sodium 145 mmol/L (136-145); Total Protein 7.5 g/dL (6.4-8.2)
== END 2024-02-24 10:53 | disposition home or self-care (01) ==
LOC: NCHCN 10:52
PROVIDERS: PCP Family Medicine; Visit Provider Student in an Organized Health Care Education/Training Program
DX: K50.90 Crohn's disease, unspecified, without complications (principal)
CPT/HCPCS: 80053; 85025; 86140

== ENCOUNTER 2024-04-07 02:48 | Outpatient (RCR) | payer MEDICARE, OTHER, SELFPAY ==
[2024-02-01 00:02] VITALS: BP 126/78; PULSE 60; RESP 18; TEMP 36.4
[2024-04-07] MEDS: Acetaminophen 325 MG TAB 650 MG PO (11:05)
[2024-04-07] MEDS: diphenhydrAMINE 25 MG CAP PO (11:05)
[2024-04-07] MEDS: Normal Saline Flush 10 ML SYR IVP (11:08)
[2024-04-07 11:23] VITALS: BP 166/76; PULSE 57; RESP 17; TEMP 36.2; O2SAT 97
[2024-04-07 11:35] VITALS: BP 154/61; PULSE 84; RESP 17; TEMP 36.2; O2SAT 97
[2024-04-07 11:42] LABS: ALT 24 U/L (14-59); AST 41 U/L (15-37); Albumin 3.3 g/dL (3.4-5.0); Alkaline Phosphatase 70 U/L (46-116); Bilirubin, Direct 0.1 mg/dL (0.0-0.2); Bilirubin, Total 0.37 mg/dL (0.2-1.0)
[2024-04-07 11:46] LABS: C-Reactive Protein < 0.50 mg/dL (<or=0.5)
[2024-04-07 11:50] VITALS: BP 148/72; PULSE 53; RESP 17; TEMP 36.3; O2SAT 98
[2024-04-07 12:05] VITALS: BP 135/76; PULSE 55; RESP 17; TEMP 36.3; O2SAT 97
[2024-04-07 12:20] VITALS: BP 157/70; PULSE 54; RESP 17; TEMP 35.2; O2SAT 98
[2024-04-07 12:49] VITALS: BP 168/81; PULSE 66; RESP 17; TEMP 35.8; O2SAT 97
[2024-04-07 13:59] LABS: HGB 12.4 g/dL (11.2-15.7); MCH 31.9 pg (27.0-33.0); MCHC 32.6 % (32.0-36.0); MCV 98 fL (80-95); MPV 11.8 fL (8.0-11.0); Platelet Count 143 10^3/uL (130-400); RBC 3.89 10^6/uL (3.93-5.22); RDW-SD 46.4 fL; WBC 4.29 10^3/uL (4.4-10.8)
== END 2024-05-02 23:59 | disposition home or self-care (01) ==
LOC: INF 02:48
PROVIDERS: Internal Medicine Gastroenterology; PCP Family Medicine; Visit Provider Family Medicine
DX: K50.10 Crohn's disease of large intestine without complications (principal)
CPT/HCPCS: 36415; 80076; 85027; 96365; 96366; 86140; Q5104

== ENCOUNTER 2024-04-15 16:16 | Outpatient (REF) | payer MEDICARE, OTHER, SELFPAY ==
[2024-04-15 15:35] LABS: Abs Immature Grans 0.01 10^3/uL (0.0-0.06); Absolute Basophil Count 0.08 10^3/uL (0.0-0.2); Absolute Eosinophil Count 0.22 10^3/uL (0.0-0.7); Absolute Lymphocyte Count 1.66 10^3/uL (1.2-3.4); Absolute Monocyte Count 0.51 10^3/uL (0.1-0.8); Absolute Neutrophil Count 2.27 10^3/uL (1.2-6.7); Basophils % 1.7 %; Eosinophils % 4.6 %; HCT 36.9 % (36.0-46.0); HGB 12.4 g/dL (11.2-15.7); Immature Grans % 0.2 %; Lymphocytes % 34.9 %; MCH 32.6 pg (27.0-33.0); MCHC 33.6 % (32.0-36.0); MCV 97 fL (80-95); MPV 12.8 fL (8.0-11.0); Monocytes % 10.7 %; Neutrophils % 47.9 %; Platelet Count 138 10^3/uL (130-400); RDW-SD 46.4 fL; WBC 4.75 10^3/uL (4.4-10.8)
== END 2024-04-15 16:17 | disposition home or self-care (01) ==
LOC: NCHCN 16:16
PROVIDERS: PCP Family Medicine; Visit Provider Student in an Organized Health Care Education/Training Program
DX: D69.6 Thrombocytopenia, unspecified (principal)
CPT/HCPCS: 85025

== ENCOUNTER 2024-05-23 09:48 | Emergency (ER) | payer MEDICARE, OTHER, SELFPAY ==
[2024-05-23] VITALS (7 sets, daily range): BP systolic 157–195; BP diastolic 41–78; PULSE 55–64; RESP 14–18; TEMP 36.4–36.6; O2SAT 90–95
--- NOTE | 2024-05-23 10:45 | DI.RAD_ITS ---
Exam(s) XR HAND LT COMPLETE EXAM: XR HAND LT COMPLETE CLINICAL HISTORY: Left hand pain and swelling fall. TECHNIQUE: 2D digital imaging was performed. COMPARISON: No exams were available for comparison FINDINGS: 3 views No evidence of acute fracture. There are an degenerative changes in all the articulations of the alvarado d including the metacarpophalangeal joints (worst at the thumb MCP joint) as well as all of the proxi mal and distal interphalangeal joints of as well as the interphalangeal joint of thumb. There is als o moderate degenerative change at the 1st carpometacarpal joint. Visualized bones of the wrist other tracy appear unremarkable No osseous lesions. No radiopaque foreign bodies. IMPRESSION: Degenerative changes. No fractures evident. DATA REPOSITORY: RADIATION DOSE DELIVERED:
--- NOTE | 2024-05-23 10:45 | DI.RAD_ITS ---
Exam(s) XR CHEST 2V PA LATERAL EXAM: XR CHEST 2V PA LATERAL CLINICAL HISTORY: Fall. TECHNIQUE: 2D digital imaging was performed. COMPARISON: CR XR CHEST 2V PA LATERAL from 07/28/2023 FINDINGS: 2 views: Heart size is normal. The mediastinum is not widened. Lungs are clear. No infiltrates nor pleural effusions. No obvious fractures. IMPRESSION: No acute pulmonary findings. DATA REPOSITORY: RADIATION DOSE DELIVERED:
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
[2024-05-23] MEDS: Acetaminophen 500 MG TAB 1000 MG PO (10:58)
--- NOTE | 2024-05-23 11:57 | DI.CT_ITS ---
Exam(s) CT HEAD CERVICAL SPINE WO EXAM: CT HEAD CERVICAL SPINE WO CLINICAL HISTORY: Fall neck pain. TECHNIQUE: Imaging Protocol: Axial computed tomography images with coronal and sagittal reformatted images were created and reviewed COMPARISON: CT CT HEAD - STROKE PROTOCOL from 05/26/2022 FINDINGS: BRAIN: There are no skull fractures nor fluid in the visualized paranasal sinuses. There is no evidence of intracranial hemorrhage, mass effect, or shift of midline structures. There are no extra-axial fluid collections. The ventricles are not enlarged or shifted and there is no blo od within the ventricular system nor within the basal cisterns. There is abundant bilateral periventricular hypodensity consistent with chronic small vessel. No obv ious acute territorial infarct. CERVICAL SPINE: C1 arch and odontoid appear intact.No evidence of fracture, or listhesis. There is an element partial fusion of the C2, C3, C4, and C5 vertebral bodies and there is also fusio n across all the facet joints at these levels. There is normal disc height at C 5-6 level with signi ficant degenerative changes in the facet joints at this level no facet malalignment. There is an element of fusion also evident of C6, C7, T1, and T2 both anteriorly and oval with facet joints. There is no significant facet joint malalignment. No significant osseous lesions evident. IMPRESSION: No acute intracranial findings on this noninfused CT scan of the brain. No evidence of acute cervical spine fracture. There is multilevel developmental osseous fusion from C2 down to C5 and C6 down to the partially visualized thoracic spine. RADIATION DOSE DELIVERED: 1,129.31mGy.cm Total DLP DATA REPOSITORY: All CT scans at this facility are submitted to the National Radiology Data Registry (NRDR) Dose Index Registry (DIR) with the [employer] ([employer]). RADIATION OPTIMIZATION: All CT scans at this facility use at least one of these dose optimization te chniques: automated exposure control; mA and/or kV adjustment per patient size (includes targeted exa ms where dose is matched to clinical indication); or iterative reconstruction.
--- NOTE | 2024-05-23 11:58 | DI.CT_ITS ---
Exam(s) CT THORACIC LUMBAR SPINE WO EXAM: CT THORACIC LUMBAR SPINE WO CLINICAL HISTORY: Midline cervical lumbar and thoracic back.. TECHNIQUE: Imaging Protocol: Axial computed tomography images with coronal and sagittal reformatted images were created and reviewed. CONTRAST MATERIAL: Intravenous: None COMPARISON: No exams were available for comparison FINDINGS: THORACIC SPINAL COLUMN: No evidence of fracture or listhesis nor disc space narrowing. No facet malalignment. No osseous le sions. No obvious disc herniations. No central spinal canal stenosis. LUMBOSACRAL SPINAL COLUMN: Is some height loss at superior endplate level of L1 which is probably not acute. No other compressi on fractures in the lumbosacral spine. There is advanced disc space narrowing at L2-3 level and L4-5 level. There is mild retrolisthesis of L2 upon L3. No prominent disc herniations nor prominent central canal stenosis. No prominent foraminal stenosis. There is ankylosis across both sacroiliac joints. IMPRESSION: Mild compression fracture at superior endplate of L1 which is probably not acute. No compromise of t he canal at this level. Advanced disc space narrowing at L2-3 and L4-5 levels. No prominent disc he rniations. No osseous lesions. Ankylosis across both sacroiliac joints noted. Called by myself to ER physician 05/23/2024 1:10 p.m. RADIATION DOSE DELIVERED: 1,077.88mGy.cm Total DLP DATA REPOSITORY: All CT scans at this facility are submitted to the National Radiology Data Registry (NRDR) Dose Index Registry (DIR) with the [employer] ([employer]). RADIATION OPTIMIZATION: All CT scans at this facility use at least one of these dose optimization te chniques: automated exposure control; mA and/or kV adjustment per patient size (includes targeted exa ms where dose is matched to clinical indication); or iterative reconstruction.
--- NOTE | 2024-05-23 14:26 | DI.RAD_ITS ---
Exam(s) XR LUMBAR SPINE AP, LAT EXAM: XR LUMBAR SPINE AP, LAT CLINICAL HISTORY: Compression fracture please obtain upright lateral. TECHNIQUE: 2D digital imaging was performed of the lumbar spine. Three images were obtained. AP an d lateral views were obtained. COMPARISON: CT CT THORACIC LUMBAR SPINE WO from 05/23/2024 FINDINGS: BONES: There is a stable compression deformity of L1. No new fracture or subluxation is identified i n the lumbar spine. The bones are osteopenic. There are endplate osteophytes seen at L2-L3. No face t hypertrophy identified. DISKS: There is stable disc space narrowing at L2-L3 and L4-L5. ALIGNMENT: Stable 4 mm retrolisthesis of L2 on L3 is noted. No spondylolysis. SOFT TISSUE: Vascular calcifications are present. There is a moderate amount of stool throughout the colon suggesting constipation. IMPRESSION: 1. Stable compression deformity of L1. 2. Stable degenerative changes seen in the lumbar spine. 3. Constipation. DATA REPOSITORY: RADIATION DOSE DELIVERED:
== END 2024-05-23 15:51 | disposition home or self-care (01) ==
PROVIDERS: Emergency Provider Emergency Medicine; PCP Family Medicine
DX: S32.010A Wedge compression fracture of first lumbar vertebra, initial encounter for closed fracture; S60.222A Contusion of left hand, initial encounter; W18.09XA Striking against other object with subsequent fall, initial encounter
CPT/HCPCS: 99284; 70450; 71046; 72100; 72125; 72128; 72131; 73130; 99283

== ENCOUNTER 2024-06-16 01:42 | Outpatient (RCR) | payer MEDICARE, OTHER, SELFPAY ==
[2024-05-03 00:01] VITALS: BP 126/78; PULSE 60; RESP 18; TEMP 36.4
[2024-06-16] MEDS: Acetaminophen 325 MG TAB 650 MG PO (11:15)
[2024-06-16] MEDS: Normal Saline Flush 10 ML SYR IVP (11:16)
[2024-06-16] MEDS: diphenhydrAMINE 25 MG CAP PO (11:16)
[2024-06-16 11:42] VITALS: BP 149/67; PULSE 62; RESP 17; TEMP 35.9; O2SAT 98
[2024-06-16 12:09] VITALS: BP 161/77; PULSE 55; RESP 16; TEMP 36.2; O2SAT 97
[2024-06-16 12:47] VITALS: BP 173/92; PULSE 68; RESP 16; TEMP 36.6; O2SAT 95
== END 2024-07-02 23:59 | disposition home or self-care (01) ==
LOC: INF 01:42
PROVIDERS: PCP Family Medicine; Visit Provider Family Medicine
DX: K50.10 Crohn's disease of large intestine without complications (principal)
CPT/HCPCS: 96365; Q5104

== ENCOUNTER 2024-08-05 16:54 | Outpatient (REF) | payer MEDICARE, OTHER, SELFPAY ==
[2024-08-05 17:48] LABS: ALT 26 U/L (14-59); AST 27 U/L (15-37); Albumin 4.1 g/dL (3.4-5.0); Alkaline Phosphatase 102 U/L (46-116); Anion Gap 6.5 mmol/L (3-11); BUN 20 mg/dL (7-18); Bilirubin, Total 0.46 mg/dL (0.2-1.0); CO2 32.5 mmol/L (21.0-32.0); CREATININE 1.3 mg/dL (0.55-1.02); Calcium 9.6 mg/dL (8.5-10.1); Chloride 105 mmol/L (98-107); Estimated GFR 40.05 (mL/min/1.73m2); Glucose 110 mg/dL (74-106); Potassium 3.8 mmol/L (3.5-5.1); Sodium 144 mmol/L (136-145); Total Protein 8.1 g/dL (6.4-8.2)
== END 2024-08-05 16:55 | disposition home or self-care (01) ==
LOC: NCHCN 16:54
PROVIDERS: PCP Family Medicine; Visit Provider Student in an Organized Health Care Education/Training Program
DX: R74.01 Elevation of levels of liver transaminase levels (principal)
CPT/HCPCS: 80053

== ENCOUNTER → 2024-08-10 14:40 | Outpatient (BNVA) | payer MEDICARE, OTHER, SELFPAY | PROVIDERS: PCP Family Medicine; Referring Provider Family Medicine; Visit Provider Podiatrist | DX: L60.3 Nail dystrophy (principal); B35.1 Tinea unguium; N18.30 Chronic kidney disease, stage 3 unspecified; R09.89 Other specified symptoms and signs involving the circulatory and respiratory systems; L65.9 Nonscarring hair loss, unspecified; R23.8 Other skin changes; M79.674 Pain in right toe(s); M79.675 Pain in left toe(s); L85.8 Other specified epidermal thickening; L84 Corns and callosities; L60.2 Onychogryphosis; D64.9 Anemia, unspecified; M45.9 Ankylosing spondylitis of unspecified sites in spine | CPT/HCPCS: 11055; 11721 ==

== ENCOUNTER 2024-08-24 01:42 | Outpatient (RCR) | payer MEDICARE, OTHER, SELFPAY ==
[2024-07-03 00:01] VITALS: BP 126/78; PULSE 60; RESP 18; TEMP 36.4
[2024-08-24] MEDS: Acetaminophen 325 MG TAB 650 MG PO (10:44)
[2024-08-24] MEDS: diphenhydrAMINE 25 MG CAP PO (10:44)
[2024-08-24] MEDS: Normal Saline Flush 10 ML SYR IVP ×2 (10:44→11:06)
[2024-08-24 11:16] VITALS: BP 165/69; PULSE 56; RESP 18; TEMP 36.2; O2SAT 98
[2024-08-24 11:44] VITALS: BP 187/72; PULSE 62; RESP 18; TEMP 36.3; O2SAT 99
[2024-08-24 12:47] LABS: HCT 40.2 % (36.0-46.0); HGB 13.1 g/dL (11.2-15.7); MCHC 32.6 % (32.0-36.0); MCV 98 fL (80-95); MPV 12.4 fL (8.0-11.0); Platelet Count 128 10^3/uL (130-400); RBC 4.09 10^6/uL (3.93-5.22); RDW 12.7 % (11.7-14.6); RDW-SD 46.2 fL; WBC 4.75 10^3/uL (4.4-10.8)
[2024-08-24 13:09] LABS: ALT 26 U/L (14-59); AST 28 U/L (15-37); Albumin 3.6 g/dL (3.4-5.0); Alkaline Phosphatase 92 U/L (46-116); Bilirubin, Direct 0.1 mg/dL (0.0-0.2); Bilirubin, Total 0.52 mg/dL (0.2-1.0); C-Reactive Protein < 0.50 mg/dL (<or=0.5); Total Protein 7.9 g/dL (6.4-8.2)
== END 2024-09-02 23:59 | disposition home or self-care (01) ==
LOC: INF 01:42
PROVIDERS: Internal Medicine Gastroenterology; PCP Family Medicine; Visit Provider Family Medicine
DX: K50.10 Crohn's disease of large intestine without complications (principal)
CPT/HCPCS: 36415; 80076; 85027; 96365; 86140; Q5104

== ENCOUNTER 2024-11-02 02:33 | Outpatient (RCR) | payer MEDICARE, OTHER, SELFPAY ==
[2024-11-02] MEDS: diphenhydrAMINE 25 MG CAP PO (11:12)
[2024-11-02] MEDS: Acetaminophen 325 MG TAB 650 MG PO (11:12)
[2024-11-02] MEDS: Normal Saline Flush 5 ML SYR IVP (11:24)
[2024-11-02 11:52] VITALS: BP 137/74; PULSE 78; RESP 17; TEMP 37; O2SAT 97
[2024-11-02 12:22] VITALS: BP 151/64; PULSE 68; RESP 17; TEMP 36.1; O2SAT 97
[2024-11-02 13:00] VITALS: BP 132/76; PULSE 71; RESP 17; TEMP 36.2; O2SAT 97
== END 2024-11-30 23:59 | disposition home or self-care (01) ==
LOC: INF 02:33
PROVIDERS: PCP Student in an Organized Health Care Education/Training Program; Visit Provider Family Medicine
DX: K50.10 Crohn's disease of large intestine without complications (principal)
CPT/HCPCS: 96365; Q5104

== ENCOUNTER → 2024-12-14 10:06 | Outpatient (BNVA) | payer MEDICARE, OTHER, SELFPAY | PROVIDERS: PCP Student in an Organized Health Care Education/Training Program; Referring Provider Family Medicine; Visit Provider Podiatrist | DX: L60.3 Nail dystrophy (principal); B35.1 Tinea unguium; N18.30 Chronic kidney disease, stage 3 unspecified; M79.674 Pain in right toe(s); M79.675 Pain in left toe(s); D64.9 Anemia, unspecified; R09.89 Other specified symptoms and signs involving the circulatory and respiratory systems; L65.9 Nonscarring hair loss, unspecified; R23.8 Other skin changes; L60.2 Onychogryphosis; L60.8 Other nail disorders; L85.8 Other specified epidermal thickening | CPT/HCPCS: 11721 ==

== ENCOUNTER 2025-01-11 03:33 | Outpatient (RCR) | payer MEDICARE, OTHER, SELFPAY ==
[2025-01-11] MEDS: Acetaminophen 325 MG TAB 650 MG PO (10:38)
[2025-01-11] MEDS: Normal Saline Flush 10 ML SYR IVP (10:38)
[2025-01-11] MEDS: diphenhydrAMINE 25 MG CAP PO (10:38)
[2025-01-11 11:50] VITALS: BP 133/79; PULSE 60; RESP 16; TEMP 36.4; O2SAT 98
[2025-01-11 12:10] VITALS: BP 135/86; PULSE 69; RESP 16; TEMP 36.6; O2SAT 97
== END 2025-01-30 23:59 | disposition home or self-care (01) ==
LOC: INF 03:33
PROVIDERS: PCP Student in an Organized Health Care Education/Training Program; Visit Provider Family Medicine
DX: K50.10 Crohn's disease of large intestine without complications (principal)
CPT/HCPCS: 96365; 96366; Q5104

== ENCOUNTER 2025-03-22 02:42 | Outpatient (RCR) | payer MEDICARE, OTHER, SELFPAY ==
[2025-03-22] MEDS: diphenhydrAMINE 25 MG CAP PO (11:01)
[2025-03-22] MEDS: Acetaminophen 325 MG TAB 650 MG PO (11:01)
[2025-03-22] MEDS: Normal Saline Flush 10 ML SYR IVP (11:21)
[2025-03-22 11:25] VITALS: BP 160/74; PULSE 66; RESP 18; TEMP 36.6; O2SAT 97
[2025-03-22 11:28] LABS: HCT 36.8 % (36.0-46.0); HGB 12.1 g/dL (11.2-15.7); MCH 31.5 pg (27.0-33.0); MCHC 32.9 % (32.0-36.0); MCV 96 fL (80-95); MPV 12.0 fL (8.0-11.0); Platelet Count 141 10^3/uL (130-400); RBC 3.84 10^6/uL (3.93-5.22); RDW 13.2 % (11.7-14.6); RDW-SD 47.1 fL; WBC 6.20 10^3/uL (4.4-10.8)
[2025-03-22 11:40] VITALS: BP 133/70; PULSE 62; RESP 18; TEMP 36.2; O2SAT 97
[2025-03-22 12:10] VITALS: BP 142/78; PULSE 57; RESP 18; TEMP 36.2; O2SAT 97
[2025-03-22 12:30] VITALS: BP 137/70; PULSE 60; RESP 18; TEMP 36.8; O2SAT 98
[2025-03-22 13:24] LABS: ALT 27 U/L (14-59); AST 31 U/L (15-37); Albumin 3.1 g/dL (3.4-5.0); Alkaline Phosphatase 61 U/L (46-116); Bilirubin, Direct 0.1 mg/dL (0.0-0.2); Bilirubin, Total 0.5 mg/dL (0.2-1.0); Total Protein 6.6 g/dL (6.4-8.2)
[2025-03-22 13:27] LABS: C-Reactive Protein < 0.50 mg/dL (<or=0.5)
== END 2025-04-02 23:59 | disposition home or self-care (01) ==
LOC: INF 02:42
PROVIDERS: Internal Medicine Gastroenterology; PCP Student in an Organized Health Care Education/Training Program; Visit Provider Family Medicine
DX: K50.10 Crohn's disease of large intestine without complications (principal)
CPT/HCPCS: 36415; 80076; 85027; 96365; 86140; Q5104

== ENCOUNTER → 2025-04-25 09:57 | Outpatient (BNVA) | payer MEDICARE, OTHER, SELFPAY | PROVIDERS: PCP Student in an Organized Health Care Education/Training Program; Referring Provider Student in an Organized Health Care Education/Training Program; Visit Provider Podiatrist | DX: L60.3 Nail dystrophy (principal); B35.1 Tinea unguium; N18.30 Chronic kidney disease, stage 3 unspecified; M79.674 Pain in right toe(s); M79.675 Pain in left toe(s); D64.9 Anemia, unspecified; M45.9 Ankylosing spondylitis of unspecified sites in spine; R09.89 Other specified symptoms and signs involving the circulatory and respiratory systems; L65.9 Nonscarring hair loss, unspecified; R23.4 Changes in skin texture; L60.2 Onychogryphosis; L60.8 Other nail disorders; L85.8 Other specified epidermal thickening | CPT/HCPCS: 11055; 11721 ==